=== PATIENT | female | born 1965 | race Two or more races ===

== ENCOUNTER 2020-06-16 10:37 | Outpatient (REF) | payer OTHER, SELFPAY ==
[2020-06-16 12:02] LABS: MANUAL DIFF FLAG NO
[2020-06-16 12:15] LABS: Basophils Percent Auto 0.5 % (0-2); Eosinophils Absolute Auto 0.1 X10*3/uL (0.0-0.4); Eosinophils Percent Auto 2.1 % (0-4); Hematocrit 39.6 % (37-47); Hemoglobin 12.7 g/dl (12.0-16.0); Imm Gran Abs Auto 0.01 X10*3/uL (0.00-0.03); Imm Gran Pct Auto 0.3 % (0.0-0.4); Lymphocytes Absolute Auto 1.5 X10*3/uL (1.2-4.9); Lymphocytes Percent Auto 38.2 % (20-40); Mean Corpuscular HGB Conc 32.1 g/dl (31.0-35.0); Mean Corpuscular Hemoglobin 28.2 pg (27.0-33.0); Mean Platelet Volume 9.4 fL (9.4-12.3); Monocytes Absolute Auto 0.4 X10*3/uL (0.1-1.2); Monocytes Percent Auto 10.4 % (2-11); Neutrophils Absolute Auto 1.9 X10*3/uL (2.0-8.3); Neutrophils Percent Auto 48.5 % (45-73); Platelet Count 232 X10*3/uL (160-400); Red Cell Distribution Width 14.1 % (11.0-16.0); White Blood Count 3.9 X10*3/uL (4.8-10.8)
[2020-06-16 12:29] LABS: Alanine Aminotransferase 17 U/L (0-31); Albumin Level 4.2 g/dL (3.5-5.0); Alkaline Phosphatase 92 U/L (39-117); Anion Gap 11 (12-20); Aspartate Amino Transferase 20 U/L (5-31); Bilirubin Total 0.6 mg/dL (0.0-1.0); Blood Urea Nitrogen 15 mg/dL (9-16); C Reactive Protein 0.45 mg/dL (< or = 0.50); Calcium 9.4 mg/dL (8.4-10.2); Carbon Dioxide 30 mmol/L (22-29); Chloride 107 mmol/L (96-108); Estimated Glomerular Filt Rate > 60; Glucose Random 102 mg/dL (60-115); Sodium 143 mmol/L (135-145); Total Protein 6.8 g/dL (6.5-8.0)
[2020-06-16 12:41] LABS: Glucose Urine UA NEG (NEG); Leukocyte Esterase Urine NEG (NEG); Nitrite Urine NEG (NEG); Specific Gravity - Urine >= 1.030 (1.005-1.025); Urine Blood NEG (NEG); Urine Ketones NEG (NEG); Urine Protein NEG (NEG-TRACE)
[2020-06-16 12:43] LABS: Appearance Urine CLEAR; Color Urine YELLOW
[2020-06-16 12:52] LABS: Bacteria Urine TRACE /LPF; Mucus Urine TRACE /LPF; RBC Urine 0-2 /HPF (0); Squamous Epithelial Cell Urine TRACE /LPF; WBC Urine 0-2 /HPF (0-4)
[2020-06-16 13:51] LABS: Erythrocyte Sedimentation Rate 6 MM/HR (0-20)
[2020-06-19 14:17] LABS: Anti DNA DS Antibody <1 IU/mL
[2020-06-19 15:02] LABS: Complement C3 118 mg/dL (83-193)
== END 2020-06-16 10:38 | disposition home or self-care (01) ==
LOC: HO.LAB 10:37
PROVIDERS: PCP Internal Medicine; Visit Provider Student in an Organized Health Care Education/Training Program
DX: M35.9 Systemic involvement of connective tissue, unspecified (principal); M79.7 Fibromyalgia; R20.0 Anesthesia of skin; Z79.899 Other long term (current) drug therapy
CPT/HCPCS: 36415; 80053; 81001; 85025; 85652; 86140; 86160; 86225; 99212

== ENCOUNTER 2020-07-03 12:27 | Outpatient (REF) | payer OTHER, SELFPAY ==
--- NOTE | ~2020-07-03 | MM_ITS ---
EXAMINATION: MM SCREENING DIGITAL BREAST TOMOSYNTHESIS, BILATERAL CLINICAL INFORMATION: Screening. Asymptomatic. The lifetime risk of breast cancer based on the Tyrer-Cuzick Model is 10%. COMPARISON: Mammography: 06/28/2019, 10/22/2017, 10/04/2016 TECHNIQUE: Digital breast tomosynthesis is performed in both the craniocaudal and mediolateral oblique views along with computer-aided detection (CAD). Synthesized 2D images are generated from the tomosynthesis. FINDINGS: The breasts are heterogeneously dense, which may obscure small masses (ACR BI-RADS breast composition Category c). There are no significant masses, abnormal calcifications, or other abnormalities. Parenchymal pattern is similar to prior studies. The axilla and skin contours are unremarkable. MM/MM tomosynthesis screening BI IMPRESSION: No mammographic evidence of malignancy. ASSESSMENT: BI-RADS 1: Negative RECOMMENDATION: Routine annual mammography screening. This patient's information was entered into a reminder system with a target due date for their next mammogram.
== END 2020-07-03 12:28 | disposition home or self-care (01) ==
LOC: HO.MAMMO 12:27
PROVIDERS: PCP Internal Medicine; Visit Provider Internal Medicine
DX: Z12.31 Encounter for screening mammogram for malignant neoplasm of breast (principal)
CPT/HCPCS: 77063; 77067

== ENCOUNTER 2021-01-03 14:53 | Outpatient (REF) | payer OTHER, SELFPAY ==
[2021-01-03 16:22] LABS: MANUAL DIFF FLAG NO
[2021-01-03 16:27] LABS: Basophils Percent Auto 0.4 % (0-2); Eosinophils Absolute Auto 0.1 X10*3/uL (0.0-0.4); Eosinophils Percent Auto 1.9 % (0-4); Hematocrit 37.8 % (37-47); Hemoglobin 12.1 g/dl (12.0-16.0); Imm Gran Abs Auto 0.01 X10*3/uL (0.00-0.03); Imm Gran Pct Auto 0.2 % (0.0-0.4); Lymphocytes Absolute Auto 1.6 X10*3/uL (1.2-4.9); Lymphocytes Percent Auto 34.8 % (20-40); Mean Corpuscular Volume 87.5 fL (80-98); Mean Platelet Volume 9.4 fL (9.4-12.3); Monocytes Absolute Auto 0.6 X10*3/uL (0.1-1.2); Neutrophils Absolute Auto 2.4 X10*3/uL (2.0-8.3); Neutrophils Percent Auto 50.7 % (45-73); Platelet Count 243 X10*3/uL (160-400); Red Blood Count 4.32 X10*6/uL (4.20-5.50); Red Cell Distribution Width 14.8 % (11.0-16.0); White Blood Count 4.7 X10*3/uL (4.8-10.8)
[2021-01-03 16:47] LABS: Alanine Aminotransferase 27 U/L (0-31); Albumin Level 4.2 g/dL (3.5-5.0); Alkaline Phosphatase 100 U/L (39-117); Anion Gap 12 (12-20); Aspartate Amino Transferase 22 U/L (5-31); Bilirubin Total 0.6 mg/dL (0.0-1.0); Blood Urea Nitrogen 13 mg/dL (9-16); C Reactive Protein 1.26 mg/dL (< or = 0.50); Calcium 9.3 mg/dL (8.4-10.2); Carbon Dioxide 28 mmol/L (22-29); Chloride 108 mmol/L (96-108); Estimated Glomerular Filt Rate > 60; Glucose Random 99 mg/dL (60-115); Potassium 4.5 mmol/L (3.3-5.1); Sodium 143 mmol/L (135-145); Total Protein 6.8 g/dL (6.5-8.0)
[2021-01-03 17:07] LABS: Erythrocyte Sedimentation Rate 5 MM/HR (0-20)
[2021-01-03 21:33] LABS: Glucose Urine UA NEG (NEG); Leukocyte Esterase Urine NEG (NEG); Nitrite Urine NEG (NEG); Specific Gravity - Urine >= 1.030 (1.005-1.025); Urine Blood NEG (NEG); Urine Ketones NEG (NEG); Urine Protein NEG (NEG-TRACE)
[2021-01-03 21:35] LABS: Appearance Urine CLEAR; Color Urine YELLOW
[2021-01-03 21:38] LABS: Bacteria Urine 1+ /LPF; Calcium Oxalate Crystals Urine 1+ /LPF; Mucus Urine 1+ /LPF; Squamous Epithelial Cell Urine 1+ /LPF
[2021-01-05 13:06] LABS: Complement C3 92 mg/dL (83-193)
[2021-01-06 13:06] LABS: Anti DNA DS Antibody <1 IU/mL
== END 2021-01-03 14:54 | disposition home or self-care (01) ==
LOC: HO.LAB 14:53
PROVIDERS: PCP Internal Medicine; Visit Provider Student in an Organized Health Care Education/Training Program
DX: M35.9 Systemic involvement of connective tissue, unspecified (principal); M79.7 Fibromyalgia; Z79.899 Other long term (current) drug therapy
CPT/HCPCS: 36415; 80053; 81001; 85025; 85652; 86140; 86160; 86225; 99212

== ENCOUNTER → 2021-01-19 15:49 | Outpatient (BNV) | payer OTHER, SELFPAY | PROVIDERS: Visit Provider Internal Medicine Medical Oncology | DX: D72.819 Decreased white blood cell count, unspecified (principal) | CPT/HCPCS: 99213 ==

== ENCOUNTER 2021-03-03 14:57 | Outpatient (REF) | payer OTHER, SELFPAY ==
--- NOTE | ~2021-03-03 | XR_ITS ---
EXAMINATION: XR CHEST CLINICAL INFORMATION: Chest pain COMPARISON: None TECHNIQUE: 2 views of the chest were obtained. FINDINGS: No significant abnormality is noted involving the heart, lungs, mediastinum, bony thorax or soft tissues. XR/XR chest 2V IMPRESSION: Unremarkable chest examination.
== END 2021-03-03 14:58 | disposition home or self-care (01) ==
LOC: HO.HMGCX 14:57
PROVIDERS: PCP Internal Medicine; Visit Provider Internal Medicine
DX: R07.9 Chest pain, unspecified (principal)
CPT/HCPCS: 71046

== ENCOUNTER 2021-07-12 13:05 | Outpatient (REF) | payer OTHER, SELFPAY ==
--- NOTE | ~2021-07-12 | MM_ITS ---
EXAMINATION: MM SCREENING DIGITAL BREAST TOMOSYNTHESIS, BILATERAL CLINICAL INFORMATION: Screening. Asymptomatic. The lifetime risk of breast cancer based on the Tyrer-Cuzick Model is 8%. COMPARISON: Mammography: 07/03/2020, 06/28/2019, 10/22/2017 TECHNIQUE: Digital breast tomosynthesis is performed in both the craniocaudal and mediolateral oblique views along with computer-aided detection (CAD). Synthesized 2D images are generated from the tomosynthesis. Additional left MLO view is provided. FINDINGS: The breasts are heterogeneously dense, which may obscure small masses (ACR BI-RADS breast composition Category c). There are no significant masses, abnormal calcifications, or other abnormalities. Parenchymal pattern is similar to prior studies. There is no developing density or architectural abnormality. The axilla and skin contours are unremarkable. No significant changes. MM/MM tomosynthesis screening BI IMPRESSION: No mammographic evidence of malignancy. ASSESSMENT: BI-RADS 1: Negative RECOMMENDATION: Routine annual mammography screening. This patient's information was entered into a reminder system with a target due date for their next mammogram.
== END 2021-07-12 13:06 | disposition home or self-care (01) ==
LOC: HO.MAMMO 13:05
PROVIDERS: PCP Internal Medicine; Visit Provider Internal Medicine
DX: Z12.31 Encounter for screening mammogram for malignant neoplasm of breast (principal)
CPT/HCPCS: 77063; 77067

== ENCOUNTER → 2021-09-05 13:09 | Outpatient (BNVA) | payer OTHER, SELFPAY | PROVIDERS: Visit Provider Obstetrics & Gynecology | DX: Z01.419 Encounter for gynecological examination (general) (routine) without abnormal findings (principal) ==

== ENCOUNTER 2021-10-02 10:56 | Outpatient (REF) | payer OTHER, SELFPAY ==
--- NOTE | ~2021-10-02 | US_ITS ---
EXAMINATION: US PELVIS CLINICAL INFORMATION: Hypertrophy of uterus COMPARISON: Previous pelvic ultrasound October 2017 TECHNIQUE: Ultrasound of the pelvis is performed using both transabdominal and transvaginal transducers along with Doppler. Transvaginal imaging is performed due to inadequate visualization transabdominally. FINDINGS: Uterus: The uterus is anteverted and measures 8.2 x 4.2 x 4.1 cm. The double wall endometrial thickness is 0.5 mm. Endometrial thickening in the fundus of the uterus is no longer appreciated. The uterus is smooth in contour and has normal myometrial echogenicity. No visible fibroid. There are nabothian cysts in the cervix. Adnexa: Both ovaries are visualized. There is a small amount of ascites. Right ovary measures 1.5 x 1.1 x 1.2 cm. Left ovary measures 1.5 x 1.1 x 1.4 cm. US/US pelvic and transvaginal IMPRESSION: Unremarkable exam.
== END 2021-10-02 10:57 | disposition home or self-care (01) ==
LOC: HO.US 10:56
PROVIDERS: Visit Provider Obstetrics & Gynecology
DX: N85.2 Hypertrophy of uterus (principal)
CPT/HCPCS: 76830; 76856

== ENCOUNTER 2021-10-04 11:32 | Outpatient (REF) | payer OTHER, SELFPAY ==
[2021-10-04 13:58] LABS: MANUAL DIFF FLAG NO
[2021-10-04 14:01] LABS: Basophils Percent Auto 0.6 % (0-2); Eosinophils Absolute Auto 0.1 X10*3/uL (0.0-0.4); Eosinophils Percent Auto 2.2 % (0-4); Hematocrit 41.5 % (37.0-47.0); Hemoglobin 13.1 g/dl (12.0-16.0); Imm Gran Abs Auto 0.01 X10*3/uL (0.00-0.03); Imm Gran Pct Auto 0.3 % (0.0-0.4); Lymphocytes Absolute Auto 1.4 X10*3/uL (1.2-4.9); Lymphocytes Percent Auto 38.5 % (20-40); Mean Corpuscular HGB Conc 31.6 g/dl (31.0-35.0); Mean Corpuscular Hemoglobin 28.3 pg (27.0-33.0); Mean Corpuscular Volume 89.6 fL (80.0-98.0); Mean Platelet Volume 9.6 fL (9.4-12.3); Monocytes Absolute Auto 0.4 X10*3/uL (0.1-1.2); Monocytes Percent Auto 10.7 % (2-11); Neutrophils Absolute Auto 1.7 x10*3/uL (2.0-8.3); Neutrophils Percent Auto 47.7 % (45-73); Platelet Count 256 X10*3/uL (160-400); Red Blood Count 4.63 X10*6/uL (4.20-5.50); Red Cell Distribution Width 14.4 % (11.0-16.0); White Blood Count 3.6 X10*3/uL (4.8-10.8)
[2021-10-04 14:22] LABS: Alanine Aminotransferase 28 U/L (0-31); Albumin Level 4.1 g/dL (3.5-5.0); Alkaline Phosphatase 71 U/L (39-117); Anion Gap 12 (12-20); Aspartate Amino Transferase 24 U/L (5-31); Bilirubin Total 0.7 mg/dL (0.0-1.0); Blood Urea Nitrogen 9 mg/dL (9-16); Calcium 9.6 mg/dL (8.4-10.2); Carbon Dioxide 28 mmol/L (22-29); Chloride 109 mmol/L (96-108); Cholesterol 244 mg/dL; Estimated Glomerular Filt Rate > 60; Glucose Fasting 97 mg/dL (60-99); HDL Cholesterol 79 mg/dL; LDL Cholesterol Calculated 147 mg/dl; Potassium 5.2 mmol/L (3.3-5.1); Sodium 144 mmol/L (135-145); Total Protein 6.9 g/dL (6.5-8.0); Triglycerides 93 mg/dL
[2021-10-04 14:35] LABS: TSH reflex Free T4 0.83 uIU/mL (0.32-4.0)
== END 2021-10-04 11:33 | disposition home or self-care (01) ==
LOC: HO.HMGCLDS 11:32
PROVIDERS: Visit Provider Internal Medicine
DX: Z00.01 Encounter for general adult medical examination with abnormal findings (principal); E66.09 Other obesity due to excess calories; F33.9 Major depressive disorder, recurrent, unspecified; M79.7 Fibromyalgia
CPT/HCPCS: 36415; 80053; 80061; 84443; 85025

== ENCOUNTER → 2021-10-10 08:57 | Outpatient (BNVA) | payer OTHER, SELFPAY | PROVIDERS: PCP Internal Medicine; Visit Provider Obstetrics & Gynecology | DX: N85.2 Hypertrophy of uterus (principal) | CPT/HCPCS: 99212 ==

== ENCOUNTER 2021-11-07 10:26 | Outpatient (REF) | payer OTHER, SELFPAY ==
[2021-11-07 10:42] LABS: MANUAL DIFF FLAG NO
[2021-11-07 11:00] LABS: Basophils Percent Auto 0.5 % (0-2); Eosinophils Absolute Auto 0.1 X10*3/uL (0.0-0.4); Eosinophils Percent Auto 1.9 % (0-4); Hematocrit 39.8 % (37.0-47.0); Hemoglobin 12.9 g/dl (12.0-16.0); Imm Gran Abs Auto 0.01 X10*3/uL (0.00-0.03); Imm Gran Pct Auto 0.2 % (0.0-0.4); Lymphocytes Absolute Auto 1.8 X10*3/uL (1.2-4.9); Lymphocytes Percent Auto 42.1 % (20-40); Mean Corpuscular HGB Conc 32.4 g/dl (31.0-35.0); Mean Corpuscular Hemoglobin 28.5 pg (27.0-33.0); Mean Corpuscular Volume 87.9 fL (80.0-98.0); Mean Platelet Volume 9.1 fL (9.4-12.3); Monocytes Absolute Auto 0.4 X10*3/uL (0.1-1.2); Monocytes Percent Auto 9.3 % (2-11); Neutrophils Absolute Auto 1.9 x10*3/uL (2.0-8.3); Platelet Count 240 X10*3/uL (160-400); Red Blood Count 4.53 X10*6/uL (4.20-5.50); Red Cell Distribution Width 14.1 % (11.0-16.0); White Blood Count 4.2 X10*3/uL (4.8-10.8)
[2021-11-07 12:06] LABS: Protein/Creatinine Ratio, Ur 0.05 (<0.2); Total Protein Urine Random 8 mg/dL (<12)
[2021-11-07 12:07] LABS: C Reactive Protein 0.54 mg/dL (< or = 0.50)
[2021-11-07 15:17] LABS: Erythrocyte Sedimentation Rate 7 MM/HR (0-20)
[2021-11-09 14:31] LABS: Anti Nuclear Antibody Screen NEGATIVE (NEGATIVE)
== END 2021-11-07 10:27 | disposition home or self-care (01) ==
LOC: HO.LAB 10:26
PROVIDERS: PCP Internal Medicine; Visit Provider Internal Medicine Rheumatology
DX: M35.9 Systemic involvement of connective tissue, unspecified (principal); R63.5 Abnormal weight gain; M79.7 Fibromyalgia; D72.819 Decreased white blood cell count, unspecified
CPT/HCPCS: 36415; 84156; 85025; 85652; 86038; 86039; 86140; 99212

== ENCOUNTER 2022-03-21 11:25 | Outpatient (REF) | payer OTHER, SELFPAY ==
[2022-03-21 13:35] LABS: MANUAL DIFF FLAG NO
[2022-03-21 13:48] LABS: Basophils Percent Auto 0.5 % (0-2); Eosinophils Absolute Auto 0.1 X10*3/uL (0.0-0.4); Eosinophils Percent Auto 1.9 % (0-4); Hemoglobin 12.7 g/dl (12.0-16.0); Imm Gran Abs Auto 0.01 X10*3/uL (0.00-0.03); Imm Gran Pct Auto 0.2 % (0.0-0.4); Lymphocytes Absolute Auto 1.5 X10*3/uL (1.2-4.9); Lymphocytes Percent Auto 36.6 % (20-40); Mean Corpuscular HGB Conc 31.8 g/dl (31.0-35.0); Mean Corpuscular Volume 88.3 fL (80.0-98.0); Mean Platelet Volume 9.6 fL (9.4-12.3); Monocytes Absolute Auto 0.5 X10*3/uL (0.1-1.2); Monocytes Percent Auto 10.7 % (2-11); Neutrophils Absolute Auto 2.1 x10*3/uL (2.0-8.3); Neutrophils Percent Auto 50.1 % (45-73); Platelet Count 275 X10*3/uL (160-400); Red Blood Count 4.53 X10*6/uL (4.20-5.50); Red Cell Distribution Width 14.2 % (11.0-16.0); White Blood Count 4.2 X10*3/uL (4.8-10.8)
[2022-03-21 14:14] LABS: Anion Gap 12 (12-20); Blood Urea Nitrogen 13 mg/dL (9-16); C Reactive Protein 0.73 mg/dL (< or = 0.50); Calcium 9.1 mg/dL (8.4-10.2); Carbon Dioxide 29 mmol/L (22-29); Chloride 107 mmol/L (96-108); Estimated Glomerular Filt Rate > 60; Glucose Random 87 mg/dL (60-115); Potassium 4.8 mmol/L (3.3-5.1); Sodium 143 mmol/L (135-145); Thyroid Stimulating Hormone 1.19 uIU/mL (0.32-4.0)
[2022-03-21 14:42] LABS: Erythrocyte Sedimentation Rate 11 MM/HR (0-20)
[2022-03-26 12:13] LABS: Anti Nuclear Antibody Pattern Nuclear, Speckled; Anti Nuclear Antibody Screen POSITIVE (NEGATIVE); Anti Nuclear Antibody Titer 1:40 titer
== END 2022-03-21 11:26 | disposition home or self-care (01) ==
LOC: HO.10HDL 11:25
PROVIDERS: Visit Provider Internal Medicine Rheumatology
DX: M35.9 Systemic involvement of connective tissue, unspecified (principal); M79.7 Fibromyalgia; D72.819 Decreased white blood cell count, unspecified; Z79.899 Other long term (current) drug therapy
CPT/HCPCS: 36415; 80048; 84443; 85025; 85652; 86038; 86039; 86140; 99212

== ENCOUNTER 2022-07-26 14:40 | Outpatient (REF) | payer OTHER, SELFPAY ==
--- NOTE | ~2022-07-26 | MM_ITS ---
EXAMINATION: MM SCREENING DIGITAL BREAST TOMOSYNTHESIS, BILATERAL CLINICAL INFORMATION: Screening. Asymptomatic. The lifetime risk of breast cancer based on the Tyrer-Cuzick Model is 9%. COMPARISON: Mammography: 07/12/2021, 07/03/2020, 06/28/2019 TECHNIQUE: Digital breast tomosynthesis is performed in both the craniocaudal and mediolateral oblique views along with computer-aided detection (CAD). Synthesized 2D images are generated from the tomosynthesis. FINDINGS: The breasts are heterogeneously dense, which may obscure small masses (ACR BI-RADS breast composition Category c). There are no significant masses, abnormal calcifications, or other abnormalities. No architectural abnormality or developing density or significant change from prior studies. The axilla are unremarkable. MM/MM tomosynthesis screening BI IMPRESSION: No mammographic evidence of malignancy. ASSESSMENT: BI-RADS 1: Negative RECOMMENDATION: Routine annual mammography screening. This patient's information was entered into a reminder system with a target due date for their next mammogram.
== END 2022-07-26 14:41 | disposition home or self-care (01) ==
LOC: HO.MAMMO 14:40
PROVIDERS: PCP Internal Medicine; Visit Provider Internal Medicine
DX: Z12.31 Encounter for screening mammogram for malignant neoplasm of breast (principal)
CPT/HCPCS: 77063; 77067

== ENCOUNTER 2022-08-19 13:58 | Outpatient (REF) | payer OTHER, SELFPAY ==
--- NOTE | ~2022-08-19 | XR_ITS ---
EXAMINATION: XR SHOULDER, RIGHT CLINICAL INFORMATION: Shoulder pain COMPARISON: None available. TECHNIQUE: AP external rotation, Grashey, scapular Y, and axillary views of the right shoulder. FINDINGS: The bones and soft tissues are normal. No fracture. Glenohumeral and acromioclavicular alignment is anatomic with normal joint space. No abnormal soft tissue calcifications. XR/XR shoulder RT min 2V IMPRESSION: Normal right shoulder.
[2022-08-19 14:54] LABS: MANUAL DIFF FLAG NO
[2022-08-19 15:30] LABS: Basophils Percent Auto 0.4 % (0-2); Eosinophils Absolute Auto 0.1 X10*3/uL (0.0-0.4); Eosinophils Percent Auto 1.3 % (0-4); Hematocrit 39.5 % (37.0-47.0); Hemoglobin 12.9 g/dl (12.0-16.0); Imm Gran Abs Auto 0.01 X10*3/uL (0.00-0.03); Imm Gran Pct Auto 0.2 % (0.0-0.4); Lymphocytes Absolute Auto 2.2 X10*3/uL (1.2-4.9); Lymphocytes Percent Auto 41.1 % (20-40); Mean Corpuscular HGB Conc 32.7 g/dl (31.0-35.0); Mean Corpuscular Hemoglobin 28.4 pg (27.0-33.0); Mean Corpuscular Volume 86.8 fL (80.0-98.0); Mean Platelet Volume 9.7 fL (9.4-12.3); Monocytes Absolute Auto 0.5 X10*3/uL (0.1-1.2); Monocytes Percent Auto 9.7 % (2-11); Neutrophils Absolute Auto 2.5 x10*3/uL (2.0-8.3); Neutrophils Percent Auto 47.3 % (45-73); Platelet Count 269 X10*3/uL (160-400); Red Blood Count 4.55 X10*6/uL (4.20-5.50); Red Cell Distribution Width 14.6 % (11.0-16.0); White Blood Count 5.3 X10*3/uL (4.8-10.8)
[2022-08-19 15:56] LABS: C Reactive Protein 1.07 mg/dL (< or = 0.50)
[2022-08-19 16:12] LABS: Erythrocyte Sedimentation Rate 8 MM/HR (0-20)
[2022-08-21 22:14] LABS: Anti DNA DS Antibody <1 IU/mL; SM/Ribonucleoprotein Ab <1.0 NEG AI (<1.0 NEG); Smith Protein <1.0 NEG AI (<1.0 NEG)
== END 2022-08-19 13:59 | disposition home or self-care (01) ==
LOC: HO.XRAY 13:58
PROVIDERS: PCP Internal Medicine; Visit Provider Internal Medicine Rheumatology
DX: M35.9 Systemic involvement of connective tissue, unspecified (principal); D72.819 Decreased white blood cell count, unspecified; M79.7 Fibromyalgia; M25.511 Pain in right shoulder; M75.81 Other shoulder lesions, right shoulder
CPT/HCPCS: 36415; 73030; 85025; 85652; 86140; 86225; 86235; 99212

== ENCOUNTER 2022-09-10 09:11 | Outpatient (REF) | payer OTHER, SELFPAY ==
[2022-09-12 07:24] LABS: HPV mRNA E6/E7 rflx Not Detected (Not Detected)
== END 2022-09-10 09:12 | disposition home or self-care (01) ==
LOC: HO.LNP 09:11
PROVIDERS: PCP Internal Medicine; Visit Provider Obstetrics & Gynecology
DX: Z01.419 Encounter for gynecological examination (general) (routine) without abnormal findings (principal); Z11.51 Encounter for screening for human papillomavirus (HPV); N85.2 Hypertrophy of uterus
CPT/HCPCS: 87624; 88142

== ENCOUNTER 2022-11-14 12:00 | Outpatient (RCR) | payer OTHER, SELFPAY ==
--- NOTE | 2022-09-16 17:20 | MHC.PT.EP ---
[facility] Office [place] Office [place] Office [address] Aaron Khalil [address] [phone] F: [phone] F: [phone] F: [phone] F: [phone] Physical Therapy Plan of Care Date of Evaluation: Date of Surgery: Diagnosis: RIGHT shoulder pain ( MD Dx) RIGHT subacromial impingement, questionable supraspinatus tear, adhesive capsulitis. (PT Dx) Assessment: Patient is a 57 y.o. female who is referred to PT by Dr. Bill Couch MD with Dx of RIGHT shoulder pain. PT diagnosis is RIGHT subacromial impingement, questionable supraspinatus tear, adhesive capsulitis.Patient impairments include pain, poor posture, limited ROM, weakness. Patient current functional limitations are reaching, lifting overhead, showering, washing/styling hair, pulling up pants, lifting children at work, reaching behind back. Patient will benefit from skilled PT to address aforementioned impairments and functional limitations to meet established goals. Prognosis is fair as she has developed adhesive capsulitis and I question RTC tear due to presentation. Frequency and Duration: The patient will be seen 1-2x/week for 4 weeks Short Term Goals: 2 weeks Patient demonstrates consistency and independence with HEP to self manage symptoms. Patient presents with increased R shoulder ER 60 degrees to be able to reach behind back for ADLs. Roller Operator Goals: 4 weeks Patient presents with increased R shoulder AROM flexion 140 degrees to be able to do her hair. Patient presents with increased R shoulder flexino 3+/5 to be able to put on pants. Treatment Plan: Modalities to reduce pain, spasms and effusion. Manual therapy to restore motion and function. Therapeutic exercise to improve strength and flexibility. Neuromuscular re-education for posture and balance. Therapeutic activities to return to functional activities of daily living. Electronically signed by: Arnold Holguin, PT, DPT Please sign and return to therapist. Thank you for your referral.
--- NOTE | 2022-11-14 14:33 | MHC.PT.DC ---
[facility] [place] Office [place] Office [place] Office [address] Aaron Khalil [address] [phone] F: [phone] F: [phone] F: [phone] F: [phone] Physical Therapy Discharge Report Diagnosis: RIGHT shoulder pain ( MD Dx) RIGHT subacromial impingement, questionable supraspinatus tear, adhesive capsulitis. (PT Dx) Date of Surgery: Date of Evaluation: 09/16/22 Date of Discharge: 11/14/22 Treatments to Date: 8 Cancellations to Date: No Shows to Date: Discharge Status: Achieved Goals Improved Function Independent with HEP Discharge Summary: Violet shows improvement in all areas with reduction in familiar pain, improved AROM and increased strength as well as improves self reported outcome measure with SPADI. However, she is still experiencing impingement symptoms with overhead reaching and has pain and weakness into abduction, which is questionable for RTC tear vs impingement. We discuss speaking with her MD at next FUP regarding sxs and possible imaging if needed. Electronically signed by: Arnold Holguin, PT, DPT Please sign and return to therapist. Thank you for your referral.
--- NOTE | 2022-11-14 14:35 | MHC.PT.DC ---
[facility] [place] Office [place] Office [place] Office [address] Aaron Khalil [address] [phone] F: [phone] F: [phone] F: [phone] F: [phone] Physical Therapy Discharge Report Diagnosis: RIGHT shoulder pain ( MD Dx) RIGHT subacromial impingement, questionable supraspinatus tear, adhesive capsulitis. (PT Dx) Date of Surgery: Date of Evaluation: 09/16/22 Date of Discharge: 11/14/22 Treatments to Date: 8 Cancellations to Date: No Shows to Date: Discharge Status: Achieved Goals Improved Function Independent with HEP Discharge Summary: Violet shows improvement in all areas with reduction in familiar pain, improved AROM and increased strength as well as improves self reported outcome measure with SPADI. However, she is still experiencing impingement symptoms with overhead reaching and has pain and weakness into abduction, which is questionable for RTC tear vs impingement. We discuss speaking with her MD at next FUP regarding sxs and possible imaging if needed. Electronically signed by: Arnold Holguin, PT, DPT Please sign and return to therapist. Thank you for your referral.
== END 2022-11-14 14:34 | disposition home or self-care (01) ==
LOC: HO.PT 12:00
PROVIDERS: PCP Internal Medicine; Visit Provider Internal Medicine Rheumatology
DX: M75.81 Other shoulder lesions, right shoulder (principal)
CPT/HCPCS: 97110; 97140; 97161

== ENCOUNTER 2022-11-26 08:41 | Outpatient (AMB) | payer OTHER, SELFPAY ==
[2022-11-26 08:49] VITALS: BP 110/72; PULSE 70; O2SAT 97; BMI 33.3
--- NOTE | 2022-11-26 08:49 | A.OFFPC_ITS ---
Vital Signs 11/26/22 08:49 Height 5 ft 4 in Weight 194 lb 4 oz BMI 33.3 BP 110/72 Blood Pressure Location Rt brachial Position Sitting Pulse 70 Pulse Source Pulse Oximeter Pulse Oximetry (%) 97 Oxygen Delivery Method Room Air Intake Visit Reasons: Annual PE Allergies aspirin [Aspirin] Allergy (Mild, Verified 11/26/22 08:49) GI UPSET, upset stomach, stomach upset Medication List - Last Reconciled 11/26/22 by La Clemens MD cyclobenzaprine 5 mg PO BEDTIME PRN fluoxetine 40 mg PO DAILY gabapentin 800 mg PO BEDTIME hydroxychloroquine (Plaquenil) 200 mg PO DAILY hydroxyzine HCl 25 mg PO TID PRN lamotrigine 200 mg PO DAILY mirtazapine 30 mg PO BEDTIME quetiapine 200 mg PO BEDTIME Tobacco use date assessed: 11/26/22 Dental Screening Dental Screen Date: 11/26/22 Did you have a dental visit in the last 12 months?: Yes Did you have a dental problem in the last 6 months where you did not have access to dental care?: No Was dental information given to patient?: No HPI Annual PE HPI Details Patient is 57-year-old female came in today for physical examination All her medications are from different providers for fibromyalgia and depression However she is complaining of dyspepsia for the past 2-3 weeks which is responding to Tums. Patient says that it is mostly at night. I have sent pantoprazole for the patient she is to take 1 tablet on empty stomach before bedtime with sip of water. Mammogram is up-to-date Colonoscopy through Dr. Waldron patient says that she will have appointment in January of this year She declined a breast exam today, patient sees Dr. Soler for OBGYN care Lab order placed to be done fasting. We will set up a telemedicine visit to follow-up on dyspepsia after starting PPI Physical exam 1 year [facility] Medical History Depression Fibromyalgia IBS (irritable bowel syndrome) Migraine Undifferentiated connective tissue disease Surgical History History of bilateral ligation of fallopian tubes Family History Mother HTN (hypertension) Brother Diabetes Father Heart attack Other Mental health disorder Social History Household Members: None Housing: House Are you a primary healthcare liaison to a significant other at home: No Do you presently have visiting nurse or other home services: No Alcohol intake: current Alcohol intake frequency: a few times a month Alcohol type: wine Patient Tobacco Use Status: Never used Tobacco e-Cigarette/Vaping Use: Never Used Second Hand Smoke Exposure: No service: No Current occupational status: unemployed Cognitive needs: No Hearing needs: No Vision needs: Yes Female Reproductive History Menstrual Age of Menarche: 13 Questionnaire Thrive Questionnaire Date Thrive assessed: 10/03/21 AUDIT C Alcohol Use Questionnaire (AUDIT-C) 1. How often do you have a drink containing alcohol?: Never 3. How often do you have six or more drinks on one occasion?: Never Total Score: 0 Score Reviewed/Action Taken: Yes SPENSER-7 AMB Questionnaire SPENSER-7 Date SPENSER - 7 assessed: 10/03/21 Source: Developed by Drs. Evgeny Infante, Celina Soto, Wing Izaguirre and colleagues, with an educational deniz from [employer]. Review of Systems Const Denies chills, Denies fever(s) and Denies headache(s) Eyes Denies blurry vision ENT Denies headache(s), Denies nasal discharge, Denies nasal obstruction, Denies odynophagia and Denies sinus pain Card Denies chest pain at rest and Denies chest pain with activity Resp Denies cough and Denies hemoptysis GI Denies diarrhea, Denies odynophagia, Denies vomiting and Denies hematemesis Reports as per HPI Musc Denies abnormal gait Skin/Breast Reports as per HPI Neuro Denies Neuro-related abnormal movements, Denies Abnormal speech present, Denies abnormal gait, Denies headache(s) and Denies Sensory deficit (Neuro) Psych Denies mood swings and Denies paranoia Endo Reports as per HPI Maxwell/Lymph Reports as per HPI Aller/Immun Reports as per HPI Physical exam (Primary Care) Vital Signs: Last Vital Signs Pulse 70 11/26/22 08:49 BP 110/72 11/26/22 08:49 Pulse Ox 97 11/26/22 08:49 Oxygen Delivery Method Room Air 11/26/22 08:49 BMI result Body Mass Index 33.3 Tobacco/Smoking Status: Tobacco use Status Tobacco use date assessed 11/26/22 11/26/22 08:50 Patient Tobacco Use Status Never used Tobacco 11/26/22 08:50 e-Cigarette/Vaping Use Never Used 11/26/22 08:50 Thrive Assessment: Date of Thrive Assessment Date Thrive assessed 10/03/21 11/26/22 08:50 Const General: cooperative, comfortable and no acute distress Orientation/consciousness: patient oriented x3 HENMT Head: Yes normocephalic and Yes atraumatic Eyes General: appearance normal, both eyes and all related structures Pupils: Equal, round and reactive pupils present EOM: EOMs intact bilaterally Neck Neck: Yes supple and No lymphadenopathy Thyroid: Thyroid normal Lymphatic: no lymphadenopathy noted Resp Effort & Inspection: normal respiratory effort and able to speak in complete sentences Auscultation: clear to auscultation bilaterally Cardio Heart sounds: S1 normal heart sound present and S2 normal heart sound present GI Palpation (GI): Soft to palpation and nontender Auscultation: normal bowel sounds General: Yes no CVA tenderness Back/Spine/Pelvis Back: no CVA tenderness Skin General skin exam: elasticity normal and turgor normal Neuro General: patient oriented x3 and gait normal Cranial nerves: Yes Equal, round and reactive pupils present Speech: No Abnormal speech present Sensory Exam: No Sensory deficit (Neuro) Coordination: tandem gait normal and Romberg test negative Extrem Other: Right shoulder with limited range of motion patient has gone through physical therapy and will discuss it further with the Rheumatology General: No edema Assessment and Plan Assessment & Plan (1) Encounter for general adult medical examination with abnormal findings: Code(s): Z00.01 - Encounter for general adult medical examination with abnormal findings (2) Fibromyalgia: Code(s): M79.7 - Fibromyalgia (3) Obesity due to excess calories: Code(s): E66.09 - Other obesity due to excess calories (4) Major depression, recurrent: Code(s): F33.9 - Major depressive disorder, recurrent, unspecified (5) Dyspepsia: Code(s): R10.13 - Epigastric pain Plan Patient is 57-year-old female came in today for physical examination All her medications are from different providers for fibromyalgia and depression However she is complaining of dyspepsia for the past 2-3 weeks which is responding to Tums. Patient says that it is mostly at night. I have sent pantoprazole for the patient she is to take 1 tablet on empty stomach before bedtime with sip of water. Mammogram is up-to-date Colonoscopy through Dr. Waldron patient says that she will have appointment in January of this year She declined a breast exam today, patient sees Dr. Soler for OBGY care Lab order placed to be done fasting. We will set up a telemedicine visit to follow-up on dyspepsia after starting PPI Physical exam 1 year Orders: Orders Comprehensive Powell. Panel Fast Today Z00.01 - Encounter for general adult medical examination with abnormal findings Lipid Panel Today Z00.01 - Encounter for general adult medical examination with abnormal findings TSH reflex Free T4 Today Z00.01 - Encounter for general adult medical examination with abnormal findings Complete Blood Count Auto Diff Today E66.09 - Other obesity due to excess calories, F33.9 - Major depressive disorder, recurrent, unspecified, M79.7 - Fibromyalgia, R10.13 - Epigastric pain, Z00.01 - Encounter for general adult medical examination with abnormal findings Medications: New pantoprazole 20 mg PO DAILY 30 tabs 2RF Coding Level of Care Code Est Pt Prev Care 40-64y(88382) Diagnoses Encounter for general adult medical examination with abnormal findings Z00.01 Fibromyalgia M79.7 Obesity due to excess calories E66.09 Major depression, recurrent F33.9 Dyspepsia R10.13
== END 2022-11-26 10:32 | disposition home or self-care (01) ==
PROVIDERS: Visit Provider Internal Medicine
DX: Z00.01 Encounter for general adult medical examination with abnormal findings (principal); E66.09 Other obesity due to excess calories; F33.9 Major depressive disorder, recurrent, unspecified; Z68.33 Body mass index [BMI] 33.0-33.9, adult; M79.7 Fibromyalgia; R10.13 Epigastric pain
CPT/HCPCS: 99396

== ENCOUNTER 2022-11-28 10:26 | Outpatient (REF) | payer OTHER, SELFPAY ==
[2022-11-28 13:25] LABS: MANUAL DIFF FLAG NO
[2022-11-28 13:51] LABS: Basophils Percent Auto 0.8 % (0-2); Eosinophils Absolute Auto 0.1 X10*3/uL (0.0-0.4); Eosinophils Percent Auto 2.3 % (0-4); Hematocrit 42.1 % (37.0-47.0); Hemoglobin 13.4 g/dl (12.0-16.0); Lymphocytes Absolute Auto 1.8 X10*3/uL (1.2-4.9); Lymphocytes Percent Auto 44.9 % (20-40); Mean Corpuscular HGB Conc 31.8 g/dl (31.0-35.0); Mean Corpuscular Hemoglobin 28.2 pg (27.0-33.0); Mean Corpuscular Volume 88.4 fL (80.0-98.0); Mean Platelet Volume 9.5 fL (9.4-12.3); Monocytes Absolute Auto 0.3 X10*3/uL (0.1-1.2); Monocytes Percent Auto 8.2 % (2-11); Neutrophils Absolute Auto 1.7 x10*3/uL (2.0-8.3); Neutrophils Percent Auto 43.8 % (45-73); Platelet Count 269 X10*3/uL (160-400); Red Blood Count 4.76 X10*6/uL (4.20-5.50); Red Cell Distribution Width 13.8 % (11.0-16.0); White Blood Count 3.9 X10*3/uL (4.8-10.8)
[2022-11-28 14:56] LABS: Alanine Aminotransferase 21 U/L (0-31); Alkaline Phosphatase 84 U/L (39-117); Anion Gap 13 (12-20); Aspartate Amino Transferase 19 U/L (5-31); Bilirubin Total 0.5 mg/dL (0.0-1.0); Blood Urea Nitrogen 11 mg/dL (9-16); Calcium 9.8 mg/dL (8.4-10.2); Carbon Dioxide 26 mmol/L (22-29); Chloride 108 mmol/L (96-108); Cholesterol 229 mg/dL; Estimated Glomerular Filt Rate > 60; Glucose Fasting 97 mg/dL (60-99); HDL Cholesterol 66 mg/dL; LDL Cholesterol Calculated 147 mg/dl; Potassium 4.4 mmol/L (3.3-5.1); Sodium 143 mmol/L (135-145); Triglycerides 84 mg/dL
[2022-11-28 14:58] LABS: TSH reflex Free T4 1.43 uIU/mL (0.32-4.0)
== END 2022-11-28 10:27 | disposition home or self-care (01) ==
LOC: HO.HMGCLDS 10:26
PROVIDERS: PCP Internal Medicine; Visit Provider Internal Medicine
DX: Z00.01 Encounter for general adult medical examination with abnormal findings (principal); R10.13 Epigastric pain; E66.09 Other obesity due to excess calories; F33.9 Major depressive disorder, recurrent, unspecified; M79.7 Fibromyalgia
CPT/HCPCS: 36415; 80053; 80061; 84443; 85025

== ENCOUNTER 2022-12-16 10:00 | Outpatient (AMB) | payer OTHER, SELFPAY ==
[2022-12-16 10:07] VITALS: BP 112/66; PULSE 67; TEMP 36.1; O2SAT 96; BMI 33.4
--- NOTE | 2022-12-16 10:07 | A.OFFVIS_ITS ---
Intake Vital Signs 12/16/22 10:07 Height 5 ft 4 in Weight 194 lb 7.163 oz BMI 33.4 BP 112/66 Blood Pressure Location Rt brachial Pulse 67 Pulse Source Pulse Oximeter Temp 97.0 F Temp Source Skin Pulse Oximetry (%) 96 Intake Visit Reasons: f/u for pain Intake Note: * Pt seen today for follow up. * C/o pain right shoulder/arm. 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 Accompanied by: Self / Same As Patient Allergies aspirin [Aspirin] Allergy (Mild, Verified 12/16/22 10:09) GI UPSET, upset stomach, stomach upset Medication List - Last Reconciled 12/16/22 by Bill Couch MD cyclobenzaprine 5 mg PO BEDTIME PRN fluoxetine 20 mg PO DAILY gabapentin 800 mg PO BEDTIME hydroxychloroquine (Plaquenil) 200 mg PO DAILY hydroxyzine pamoate 25 mg PO TID PRN lamotrigine 100 mg PO DAILY linaclotide (Linzess) 72 mcg PO QAM mirtazapine 30 mg PO BEDTIME pantoprazole 20 mg PO DAILY quetiapine 200 mg PO BEDTIME HPI HPI Comments History of Present Illness Details The patient presents with right shoulder pain. She says she overused that shoulder shoveling some snow back in June. She also is on hydroxychloroquine 200 mg daily for what has been labeled as undifferentiated connective tissue disease. She has been in some physical therapy for the shoul minda but that has only helped slightly. She says upper arm and anterior shoulder pain occurs with lifting the arm up to the horizontal or overhead and at night when she lies on the shoulder. There has been no redness or swelling. Her other more overall pains continue from fibromyalgia. She seems comfortable otherwise outside the shoulder pain. She takes some gabapentin that she takes 800 mg at night. She is also on medicines for her psychiatric disorder. [facility] Medical History Depression Fibromyalgia IBS (irritable bowel syndrome) Migraine Undifferentiated connective tissue disease Surgical History History of bilateral ligation of fallopian tubes Family History Mother HTN (hypertension) Brother Diabetes Father Heart attack Other Mental health disorder Social History Household Members: None Housing: House Are you a primary resident care associate to a significant other at home: No Do you presently have visiting nurse or other home services: No Alcohol intake: current Alcohol intake frequency: a few times a month Alcohol type: wine Patient Tobacco Use Status: Never used Tobacco e-Cigarette/Vaping Use: Never Used Second Hand Smoke Exposure: No service: No Current occupational status: unemployed Cognitive needs: No Hearing needs: No Vision needs: Yes Female Reproductive History Menstrual Age of Menarche: 13 Review of Systems Const Details: Negative for appetite change, weight change, fever, chills, malaise and fatigue Eyes Details: Negative for vision change, dry eyes,headaches and dizziness ENT Details: Negative for hearing change, tinnitus, oral ulcer, nose bleeds and oral dryness. Card Details: Negative chest pain, edema and syncope Resp Details: Negative for SOB, cough and wheezing GI Details: Negative indigestion/heartburn, nausea, abdominal pain, bowel changes, diarrhea, constipation and bloody stool. Skin/Breast Details: Raynaud's systems less active in the summertime. Negative for itching, rash, hives, sun sensitivity, and skin cancer Psych Details: Negative for anxiety, depression and stress Endo Details: Negative for polyuria and polydypsia Maxwell/Lymph Details: Negative for excessive bruising or bleeding. Physical Exam Vital Signs: Last Vital Signs Temp 97.0 F 12/16/22 10:07 Pulse 67 12/16/22 10:07 BP 112/66 12/16/22 10:07 Pulse Ox 96 12/16/22 10:07 BMI result Body Mass Index 33.4 APPEARANCE: Patient in no acute distress EARS:? External ear normal, canal clear and tympanic membrane normal. NOSE/SINUS:? Airflow through both nares, no nasal discharge, no bleeding THROAT:? Oral mucosa moist, no ulcerations NECK:? No thyromegaly or masses, no adenopathy, trachea midline. HEART:? Regulrar rhythm, S1-S2 heard, no murmurs, rubs or gallops. LUNG:? Clear to percussion and auscultation ABD:? Normal bowel sounds, no organomegaly, masses or tenderness. EXTREMITIES:? No edema, no calf tenderness, normal peripheral pulses. SKIN:? No inflammatory or neoplastic lesions.? Normal color and turgor JOINT EXAM: Cervical Spine:.? Mild pain with lateral flexion at 15 degrees with extremes of normal rotation.? Some cervical muscle tenderness. Thoracic Spine:.? No scoliosis.? No tenderness on palpation. Lumbar Spine:.? Alignment normal.? Full range of motion with mild pain at the extremes.? Slight paraspinal muscle tenderness. Chest Wall:.? No tenderness, swelling, increased warmth or erythema. Hands:.? Normal pain-free range of motion with mild tenderness across the PIP joints but no the swelling, increased warmth or erythema. Able to make a full fist and has a good cell maker strength. Wrists:.? Normal pain-free range of motion without tenderness, swelling, increased warmth or erythema. Elbows:. Normal pain-free range of motion without tenderness, swelling, increased warmth or erythema. Shoulders:.? Right:? Mild to moderate pain with abduction at 110 degrees or with attempts at more than 15 degrees of internal or external rotation.? Pain is worse as we try to push the shoulder passively to 180 degrees of abduction.? There is similar pain with anterior flexion at 90 degrees.? There is pcji-oh-pefrrybn anterior, subacromial and posterior tenderness.? There is no swelling, adenopathy or weakness.? Left:? Full range of motion with slight tenderness across the trapezial area.? There is minimal anterior and posterior tenderness without adenopathy, weakness, swelling, increased warmth or erythema. Hips:.? Full range of motion without pain. Hip bursa:? No tenderness. Knees:.?? Normal pain-free range of motion with mild patellofemoral crepitus.? There is mild medial compartment tenderness without effusion, soft tissue swelling, increased warmth or erythema.? There is no effusion or crepitation Ankles:.? Normal pain-free range of motion without tenderness, swelling, increased warmth or erythema. Feet:.? Normal pain-free range of motion without tenderness, swelling, increased warmth or erythema. Tender points: mild tenderness to digital palpation at the occiput, trapezius, second rib, lateral epicondyle, knees, greater trochanter and gluteal area bilaterally. Office Procedures Joint Injection/Drain Joint Injection/Drain Primary Site: right shoulder Injected: 40 mg of, Kenalog, with 1 mL of and 1% plain lidocaine Coding 78553 - Large joint (The right shoulder was prepped ChloraPrep and alcohol. The subacromial space was injected with 40 mg of triamcinolone and 1 cc of lidocaine. Patient tolerated the procedure well no apparent immediate side effects.) Procedure code (CPT) selection complete Results Reviewed Results Reviewed: [address] [address] XRay Report Signed Patient: Violet Adhikari MR#: [id number] : 1965 Acct:[id number] Age/Sex: 57 / F ADM Date: 08/19/22 Loc: [facility] Attending Dr: Bill Couch MD Ordering Physician: Bill Couch MD Date of Service: 08/19/22 Procedure(s): XR shoulder RT min 2V Accession Number(s): [id number] cc: Bill Couch MD~ EXAMINATION: XR SHOULDER, RIGHT CLINICAL INFORMATION: Shoulder pain? COMPARISON: None available.? TECHNIQUE: AP external rotation, Grashey, scapular Y, and axillary views of the right shoulder. FINDINGS: The bones and soft tissues are normal. No fracture. Glenohumeral and acromioclavicular alignment is anatomic with normal joint space. No abnormal soft tissue calcifications.? XR/XR shoulder RT min 2V IMPRESSION: Normal right shoulder. Dictated By: Juliet Chairez MD Assessment & Plan Assessment & Plan (1) Fibromyalgia: Code(s): M79.7 - Fibromyalgia (2) Undifferentiated connective tissue disease: Comment: 2019: ESTER 1:80, speckled. WBC low. C3 and C4 low. Anti DNA, anti BOGDAN, Sjogren's antibodies all negative. The hydroxychloroquine since 2019. Eye exam ok 07/04 Code(s): M35.9 - Systemic involvement of connective tissue, unspecified (3) Right rotator cuff tendonitis: Code(s): M75.81 - Other shoulder lesions, right shoulder Plan The patient still has rotator cuff symptoms in the right shoulder. Given the overuse phenomena there could be some element of a tear here but impingement and tendinitis is also a possibility. We discussed orthopedic referral or trying a local injection today. We reviewed potential side effects of corticosteroid injections and she wants to try a corticosteroid injection. The right shoulder was prepped ChloraPrep and alcohol. The subacromial space was injected with 40 mg of triamcinolone and 1 cc of lidocaine. Patient tolerated the procedure well with no apparent immediate side effects. She will rest it for a few days and then begin some gentle, dftbj-tn-xkbygc exercises. I told her that if it was not improving in 2 weeks she should call us and we would set up an orthopedic referral. She will stay on the gabapentin at night for the fibromya lgia. I still do not see much activity to suggest an active autoimmune rheumatic disease. If such relative inactivity continues we may consider stopping the hydroxychloroquine in the future. A follow-up is recommended for 6 months. . Orders: Orders AMB Joint Injection/Aspiration Today M75.81 - Other shoulder lesions, right shoulder Medications: Refilled gabapentin 800 mg PO BEDTIME 90 tabs 1RF M79.7 - Fibromyalgia Coding Level of Care Code Est Pt Level 3 (90344) Diagnoses Fibromyalgia M79.7 Undifferentiated connective tissue disease M35.9 Right rotator cuff tendonitis M75.81 CPT Codes Coding - 07661 Large joint: 00003 - Large joint ([id number])
== END 2022-12-16 11:01 | disposition home or self-care (01) ==
PROVIDERS: PCP Internal Medicine; Visit Provider Internal Medicine Rheumatology
DX: M79.7 Fibromyalgia (principal); M35.89 Other specified systemic involvement of connective tissue; M75.81 Other shoulder lesions, right shoulder
CPT/HCPCS: 20610; 99213

== ENCOUNTER → 2022-12-16 10:00 | Outpatient (BNVA) | payer OTHER, SELFPAY | PROVIDERS: PCP Internal Medicine; Visit Provider Internal Medicine Rheumatology | DX: M75.81 Other shoulder lesions, right shoulder (principal); M79.7 Fibromyalgia; M35.89 Other specified systemic involvement of connective tissue | CPT/HCPCS: 20610; 99212 ==

== ENCOUNTER 2023-02-14 12:40 | Outpatient (AMB) | payer OTHER, SELFPAY ==
--- NOTE | 2023-02-14 12:57 | MHC.OFFWIV ---
Intake Vital Signs 02/14/23 13:00 Height 5 ft 4 in Weight 192 lb BMI 33.0 BP 130/80 Blood Pressure Location Lt brachial Position Sitting Pulse 76 Pulse Source Pulse Oximeter Temp 99.4 F Temp Source Oral Pulse Oximetry (%) 96 Oxygen Delivery Method Room Air Intake Visit Reasons: EP, cough,congestion,wheezing (masked) Intake Note: Triaged patient in waiting room due to complaints of SOB and wheezing. Pt reports congestion and cough since Friday, daughter with patient explaining that she can hear the patient wheezing . No acute distress, skin warm & dry, pt reports fever but taking Ibuprofen to control. No history of asthma. Patient Tobacco Use Status: Never used Tobacco Allergies aspirin [Aspirin] Allergy (Mild, Verified 02/14/23 13:03) GI UPSET, upset stomach, stomach upset Do you need a note to return to daycare/school/sports/work: Yes HPI HPI Comments History of Present Illness Details This is a 57-year-old female who presents to the office today for sick visit. Patient complaining of cough with yellow sputum and chest congestion x2 days in the setting of viral URI symptoms x5 days. Patient states she developed nasal congestion, rhinorrhea, headache, sore throat, and bilateral otalgia approximately 5 days ago. She went to the emergency room and she was diagnosed with a viral URI recommended symptomatic management. Patient then started to developed chest congestion, wheezing at nighttime, and a cough with yellowish sputum about 2 days ago. She reports low-grade fevers with a T-max of 101? F. She denies any chest pain or shortness of breath but does report some wheezing at nighttime. She denies any abdominal pain or nausea/vomiting / diarrhea. She denies a history of asthma or COPD. [facility] Medical History Depression Fibromyalgia IBS (irritable bowel syndrome) Migraine Undifferentiated connective tissue disease Surgical History History of bilateral ligation of fallopian tubes Family History Mother HTN (hypertension) Brother Diabetes Father Heart attack Other Mental health disorder Social History Household Members: None Housing: House Are you a primary rn progressive care to a significant other at home: No Do you presently have visiting nurse or other home services: No Alcohol intake: current Alcohol intake frequency: a few times a month Alcohol type: wine Patient Tobacco Use Status: Never used Tobacco e-Cigarette/Vaping Use: Never Used Second Hand Smoke Exposure: No service: No Current occupational status: unemployed Cognitive needs: No Hearing needs: No Vision needs: Yes Female Reproductive History Menstrual Age of Menarche: 13 Review of Systems Const All systems reviewed & are unremarkable except as noted in HPI and below Reports no additional complaints Eyes Reports no additional complaints ENT Reports no additional complaints Card Reports no additional complaints Resp Reports no additional complaints GI Reports no additional complaints Reports no additional complaints Musc Reports no additional complaints Skin/Breast Reports system reviewed and no additional complaints, except as documented Neuro Reports no additional complaints Psych Reports no additional complaints Endo Reports no additional complaints Maxwell/Lymph Reports no additional complaints Aller/Immun Reports no additional complaints Physical Exam Vital Signs: Last Vital Signs Pulse 76 02/14/23 13:00 Pulse Ox 96 02/14/23 13:00 Oxygen Delivery Method Room Air 02/14/23 13:00 BMI result Body Mass Index 33.0 Const Other: Vital signs reviewed. Constitutional: Non-toxic appearing. No acute distress. Well-developed and well-nourished. HEENT: Normocephalic and atraumatic. Tympanic membranes without erythema, edema, or bulging bilaterally. Mild erythema bilateral external auditory canals. Moist mucous membranes. Mild posterior pharyngeal erythema but no edema or exudates. Skin: Warm and dry. No rashes or lesions noted. Neck: Full and painless range of motion. No cervical lymphadenopathy. Cardio: Regular rate and rhythm. No murmurs, gallops, or rubs. No lower extremity edema. No JVD. Pulmonary: No respiratory distress. No accessory muscle usage. Clear to auscultation bilaterally without wheezing, crackles, or rhonchi. Gastrointestinal: Soft, nontender, and nondistended in all 4 quadrants. Normoactive bowel sounds in all 4 quadrants. Genitourinary: No CVA tenderness. Musculoskeletal: Normal range of motion in joints throughout the body. No deformity or other signs of injury. Neuro: Alert and oriented x4. Cranial nerves 2-12 grossly intact. No focal deficits appreciated. Psych: Normal mood and affect. Assessment & Plan Assessment & Plan (1) Acute bronchitis: Code(s): J20.9 - Acute bronchitis, unspecified (2) Viral URI: Code(s): J06.9 - Acute upper respiratory infection, unspecified Plan This is a 57-year-old female presenting to the office complaining of chest congestion and cough with yellowish sputum in the setting of recent viral URI symptoms. History and physical most consistent with an acute bronchitis secondary to viral URI. Patient's vital signs are stable, her physical exam is benign, and she is overall nontoxic appearing. Patient will be sent home on p.o. prednisone 40 mg daily x5 days. Chest x-ray was obtained. If there is evidence of pneumonia, we will send a Z-Brandt. Recommended symptomatic management including rest, increased fluids, advil/tylenol for pain/fever, and over the counter throat lozenges/decongestants. Patient advised to follow up here or go to the emergency room for worsening/persistent symptoms. Patient verbalized understanding and is agreeable with the plan. Orders: Orders XR chest 2V Today R05.9 - Cough, unspecified Medications: New benzonatate 100 mg PO TID PRN 10 caps 0RF cough prednisone 40 mg (2 x 20 mg) PO DAILY 10 tabs 0RF Coding Level of Care Code Est Pt Level 3 (35868) Diagnoses Acute bronchitis J20.9 Viral URI J06.9
[2023-02-14 13:00] VITALS: BP 130/80; PULSE 76; TEMP 37.4; O2SAT 96; BMI 33.0
== END 2023-02-14 14:13 | disposition home or self-care (01) ==
PROVIDERS: PCP Internal Medicine; Visit Provider Physician Assistant Medical
DX: J20.9 Acute bronchitis, unspecified (principal); J06.9 Acute upper respiratory infection, unspecified
CPT/HCPCS: 99213

== ENCOUNTER 2023-02-14 13:13 | Outpatient (REF) | payer OTHER, SELFPAY | END 2023-02-14 13:14 | disposition home or self-care (01) | LOC: HO.HMGCX 13:13 | PROVIDERS: Visit Provider Physician Assistant Medical | DX: R05.9 Cough, unspecified (principal) | CPT/HCPCS: 71046 ==

== ENCOUNTER 2023-02-19 14:47 | Outpatient (AMB) | payer OTHER, SELFPAY ==
--- NOTE | 2023-02-19 14:50 | A.OFFPC_ITS ---
Vital Signs 02/19/23 14:51 Height 5 ft 4 in Weight 196 lb 6 oz BMI 33.7 BP 110/58 L Blood Pressure Location Lt brachial Position Sitting Pulse 79 Pulse Source Pulse Oximeter Pulse Oximetry (%) 92 Oxygen Delivery Method Room Air Intake Visit Reasons: 6W. F/U-Fibromyalgia Allergies aspirin [Aspirin] Allergy (Mild, Verified 02/19/23 14:51) GI UPSET, upset stomach, stomach upset Medication List - Last Reconciled 02/19/23 by La Clemens MD benzonatate 100 mg PO TID PRN cyclobenzaprine 5 mg PO BEDTIME PRN fluoxetine 20 mg PO DAILY gabapentin 800 mg PO BEDTIME hydroxychloroquine (Plaquenil) 200 mg PO DAILY hydroxyzine pamoate 25 mg PO TID PRN lamotrigine 200 mg PO DAILY linaclotide (Linzess) 72 mcg PO QAM mirtazapine 30 mg PO BEDTIME pantoprazole 20 mg PO DAILY prednisone 40 mg (2 x 20 mg) PO DAILY quetiapine 200 mg PO BEDTIME Tobacco use date assessed: 02/19/23 Dental Screening Dental Screen Date: 02/19/23 Did you have a dental visit in the last 12 months?: No Did you have a dental problem in the last 6 months where you did not have access to dental care?: No Was dental information given to patient?: Patient has dentist HPI 6W. F/U-Fibromyalgia HPI Details Patient is 57-year-old female came in today to be evaluated for lung infection Patient says that 10 days ago she got sick with cough chest congestion and then shortness of breath started She went to [facility] which she was diagnosed with a viral respiratory tract infection and was given symptomatic treatment Patient says that she did get better and started getting fever so she came in to our walk-in clinic last Friday She had a chest x-ray done which did not show any pneumonia however there is slight she had to seen on a long x-ray which I will address at her next visit in 2 weeks Is having difficulty breathing still and now also have a chest congestion. I am treating her with azithromycin for 10 days along with prednisone 50 mg once a day for 5 days With diagnosis of walking pneumonia. Patient will return in 2 weeks for follow-up [facility] Medical History Migraine Depression IBS (irritable bowel syndrome) Fibromyalgia Undifferentiated connective tissue disease Surgical History History of bilateral ligation of fallopian tubes Family History Mother HTN (hypertension) Brother Diabetes Father Heart attack Other Mental health disorder Social History Household Members: None Housing: House Are you a primary neonatal intensive care nurse to a significant other at home: No Do you presently have visiting nurse or other home services: No Alcohol intake: current Alcohol intake frequency: a few times a month Alcohol type: wine Patient Tobacco Use Status: Never used Tobacco e-Cigarette/Vaping Use: Never Used Second Hand Smoke Exposure: No service: No Current occupational status: unemployed Cognitive needs: No Hearing needs: No Vision needs: Yes Female Reproductive History Menstrual Age of Menarche: 13 Questionnaire Thrive Questionnaire Date Thrive assessed: 10/03/21 AUDIT C Alcohol Use Questionnaire (AUDIT-C) 1. How often do you have a drink containing alcohol?: Never 3. How often do you have six or more drinks on one occasion?: Never Total Score: 0 Score Reviewed/Action Taken: Yes SPENSER-7 AMB Questionnaire SPENSER-7 Date SPENSER - 7 assessed: 10/03/21 Source: Developed by Drs. Evgeny Infante, Celina Soto, Wing Izaguirre and colleagues, with an educational deniz from [employer]. Review of Systems Const Denies chills and Denies fever(s) ENT Denies epistaxis and Denies nasal discharge Card Denies chest pain Resp Denies hemoptysis GI Denies diarrhea and Denies nausea Skin/Breast Denies rash Neuro Reports no additional complaints Psych Reports no additional complaints Endo Reports no additional complaints Physical exam (Primary Care) Vital Signs: Last Vital Signs Pulse 79 02/19/23 14:51 BP 110/58 L 02/19/23 14:51 Pulse Ox 92 02/19/23 14:51 Oxygen Delivery Method Room Air 02/19/23 14:51 BMI result Body Mass Index 33.7 Tobacco/Smoking Status: Tobacco use Status Tobacco use date assessed 02/19/23 02/19/23 14:51 Patient Tobacco Use Status Never used Tobacco 02/19/23 14:51 e-Cigarette/Vaping Use Never Used 02/19/23 14:51 Thrive Assessment: Date of Thrive Assessment Date Thrive assessed 10/03/21 02/19/23 14:51 Const General: cooperative, comfortable and no acute distress Orientation/consciousness: patient oriented x3 HENMT Head: Yes normocephalic Eyes General: appearance normal, both eyes and all related structures Neck Neck: Yes supple Resp Other: Bilateral wheezing at the bases with some rhonchi Effort & Inspection: able to speak in complete sentences and no stridor Cardio Rhythm: regular rhythm Heart sounds: S1 normal heart sound present and S2 normal heart sound present Skin General skin exam: turgor normal Neuro General: patient oriented x3, tone normal and moves all extremities Extrem Right lower extremity: no edema Left lower extremity: no edema Assessment and Plan Assessment & Plan (1) Walking pneumonia: Code(s): J18.9 - Pneumonia, unspecified organism (2) Shortness of breath: Code(s): R06.02 - Shortness of breath (3) Wheezing on both sides of chest: Code(s): R06.2 - Wheezing Plan Patient is 57-year-old female came in today to be evaluated for lung infection Patient says that 10 days ago she got sick with cough chest congestion and then shortness of breath started She went to [facility] which she was diagnosed with a viral respiratory tract infection and was given symptomatic treatment Patient says that she did get better and started getting fever so she came in to our walk-in clinic last Friday She had a chest x-ray done which did not show any pneumonia however there is slight she had to seen on a long x-ray which I will address at her next visit in 2 weeks Is having difficulty breathing still and now also have a chest congestion. I am treating her with azithromycin for 10 days along with prednisone 50 mg once a day for 5 days With diagnosis of walking pneumonia. Patient will return in 2 weeks for follow-up Medications: New 2 azithromycin Take 2 tablets today then 1 daily 250 mg PO ONCE 12 tabs 0RF 11 days J06.9 - Acute upper respiratory infection, unspecified prednisone 50 mg PO DAILY 5 tabs 0RF 5 days Coding Level of Care Code Est Pt Level 4 (62201) Diagnoses Walking pneumonia J18.9 Shortness of breath R06.02 Wheezing on both sides of chest R06.2
[2023-02-19 14:51] VITALS: BP 110/58; PULSE 79; O2SAT 92; BMI 33.7
== END 2023-02-19 16:44 | disposition home or self-care (01) ==
PROVIDERS: PCP Internal Medicine; Visit Provider Internal Medicine
DX: J18.9 Pneumonia, unspecified organism (principal); R06.02 Shortness of breath; R06.2 Wheezing
CPT/HCPCS: 99214

== ENCOUNTER 2023-03-07 07:31 | Day surgery (SDC) | payer OTHER, SELFPAY ==
[2023-03-04 15:23] VITALS: BMI 33.7
--- NOTE | 2023-03-05 13:44 | P.CONAN_ITS ---
Documented by User: Pretty Paz NP 03/05/23 13:47 HPI - Anesthesia Eval Consult details Narrative: 57yo F for Colonoscopy Seen at PCP 02/19/23 for chest congestion and SOB. PMFSH Active Problems Active Problems: All Active Problems (Updated 02/19/23 @ 15:29 by La Clemens MD) Wheezing on both sides of chest (Acute) Shortness of breath (Acute) Walking pneumonia (Acute) Dyspepsia (Acute) Right rotator cuff tendonitis (Acute) Weight gain (Acute) Enlarged uterus (Acute) Major depression, recurrent (Acute) Leukopenia (Acute) Obesity due to excess calories (Acute) Bilateral hand numbness (Acute) Fibromyalgia (Acute) Undifferentiated connective tissue disease (Acute) Past Medical History Medical History (Updated 03/07/23 @ 07:53 by Gemini Muir, AMRIK) Hx of bronchitis Migraine Depression IBS (irritable bowel syndrome) Fibromyalgia Undifferentiated connective tissue disease Family History Family History Mother HTN (hypertension) Brother Diabetes Father Heart attack Other Mental health disorder Surgical History Surgical History (Updated 03/04/23 @ 15:15 by Dyana Tate, AMRIK) History of endometrial ablation History of History of bilateral ligation of fallopian tubes Social History Social History Household Members: None Housing: House Are you a primary personal care worker to a significant other at home: No Do you presently have visiting nurse or other home services: No Alcohol intake: current Alcohol intake frequency: does not drink Alcohol type: wine Patient Tobacco Use Status: Never used Tobacco e-Cigarette/Vaping Use: Never Used Second Hand Smoke Exposure: No Are you DNR?: No Advance Directives: No Advance Directives Information Provided: Yes service: No Current occupational status: unemployed Cognitive needs: No Hearing needs: No Vision needs: Yes Meds Allergies Allergy/AdvReac Type Severity Reaction Status Date / Time aspirin [Aspirin] Allergy Mild GI UPSET, Verified 02/19/23 14:51 upset stomach, stomach upset Home Medications Medication Instructions Recorded Confirmed Last Taken Type quetiapine 200 mg tablet 200 mg PO BEDTIME 08/08/21 02/19/23 Unknown History mirtazapine 30 mg tablet 30 mg PO BEDTIME 10/03/21 02/19/23 Unknown History hydroxychloroquine 200 mg tablet 200 mg PO DAILY 01/25/22 02/19/23 Unknown History (Plaquenil) fluoxetine 20 mg capsule 20 mg PO DAILY 12/16/22 02/19/23 Unknown History hydroxyzine pamoate 25 mg capsule 25 mg PO TID PRN anxiety 12/16/22 02/19/23 Unknown History linaclotide 72 mcg capsule 72 mcg PO QAM 12/16/22 02/19/23 Unknown History (Linzess) lamotrigine 200 mg tablet 200 mg PO DAILY 01/17/23 02/19/23 Unknown History Exam Exam Date and Time: March 05, 2023 1344 Height,Weight and Vital Signs: Height 5 ft 4 in Weight 89.074 kg Pertinent Lab Results Pertinent Lab Results: Laboratory Tests 01/27/23 13:27 WBC 4.6 L Hgb 13.3 Hct 40.4 Plt Count 236 Sodium 143 Potassium 4.0 Chloride 108 Carbon Dioxide 28 BUN 12 Creatinine 0.90 Assessment and Plan Assessment Anesthesia Assessment: Chart Reviewed Documented by User: Kervin Finley MD 03/07/23 08:50 PMFSH Past Medical History Medical History (Updated 03/07/23 @ 07:53 by Gemini Muir RN) Hx of bronchitis Migraine Depression IBS (irritable bowel syndrome) Fibromyalgia Undifferentiated connective tissue disease Family History Family History Mother HTN (hypertension) Brother Diabetes Father Heart attack Other Mental health disorder Family history of problems with anesthesia: No Surgical History Surgical History (Updated 03/04/23 @ 15:15 by Dyana Tate RN) History of endometrial ablation History of History of bilateral ligation of fallopian tubes History of Problems with Anesthesia: No Social History Social History Household Members: None Housing: House Are you a primary personal care worker to a significant other at home: No Do you presently have visiting nurse or other home services: No Alcohol intake: current Alcohol intake frequency: does not drink Alcohol type: wine Patient Tobacco Use Status: Never used Tobacco e-Cigarette/Vaping Use: Never Used Second Hand Smoke Exposure: No Are you DNR?: No Advance Directives: No Advance Directives Information Provided: Yes service: No Current occupational status: unemployed Cognitive needs: No Hearing needs: No Vision needs: Yes Meds Allergies Allergy/AdvReac Type Severity Reaction Status Date / Time aspirin [Aspirin] Allergy Mild GI UPSET, Verified 02/19/23 14:51 upset stomach, stomach upset Home Medications Medication Instructions Recorded Confirmed Last Taken Type quetiapine 200 mg tablet 200 mg PO BEDTIME 08/08/21 02/19/23 Unknown History mirtazapine 30 mg tablet 30 mg PO BEDTIME 10/03/21 02/19/23 Unknown History hydroxychloroquine 200 mg tablet 200 mg PO DAILY 01/25/22 02/19/23 Unknown History (Plaquenil) fluoxetine 20 mg capsule 20 mg PO DAILY 12/16/22 02/19/23 Unknown History hydroxyzine pamoate 25 mg capsule 25 mg PO TID PRN anxiety 12/16/22 02/19/23 Unknown History linaclotide 72 mcg capsule 72 mcg PO QAM 12/16/22 02/19/23 Unknown History (Linzess) lamotrigine 200 mg tablet 200 mg PO DAILY 01/17/23 02/19/23 Unknown History Exam Airway Mallampati Class: II TM Dist: >3cm Neck ROM: Full Heart: rrr Lungs: cta Assessment and Plan Assessment Anesthesia Assessment: Anesthesia Plan Discussed Final Anesthetic Review Family History of Problems with Anesthesia: No History of Problems with Anesthesia: No NPO: Yes ASA Class: II Final Preanesthetic Review: No Changes in Pt Med Stat, Meds/Allgs Chart Reviewed, Consent Obtained/Reviewed and Anes Risks/Benef Reviewed Patient Risk: Intermediate Procedure Risk: Low Anesthetic Plan Anesthetic Plan: MAC: and Agree w/ Assess. and Plan Disposition: Standard PACU
[2023-03-07 07:50] VITALS: BP 153/73; PULSE 64; RESP 20; TEMP 36.6; O2SAT 97
[2023-03-07] MEDS: Lactated Ringers 1,000 ML 100 ML IVCONT (08:04)
[2023-03-07 09:27] VITALS: BP 122/62; PULSE 61; RESP 16; TEMP 36.7; O2SAT 98
--- NOTE | 2023-03-07 09:33 | P.BOP_ITS ---
Brief Operative Note Date of Service: 03/07/23 Pre-op diagnosis: see H&P no changes Post-op diagnosis: same Surgeon: Tha Waldron MD Anesthesia: MAC Was an Valving Machine Operator used for this Procedure?: No Estimated blood loss (mL): 0 Pathology: other Condition: stable Disposition: PACU
--- NOTE | 2023-03-07 09:33 | MHC.SHP ---
Pre-Procedural Eval Section A Date of Service: 03/07/23 Section B Chief Complaint: screening Details of Present Illness: see H&P no changes Relevant Family History (Specify if Yes): No Relevant Social History: None Present Medications: see Short Stay Collaborative assessment Medical History: No relevant PMH History of Previous Operations: No relevant previous surgery Allergies: Allergies Allergy/AdvReac Type Severity Reaction Status Date / Time aspirin [Aspirin] Allergy Mild GI UPSET, Verified 02/19/23 14:51 upset stomach, stomach upset Review of Systems Sugical H&P ROS: Negative: Constitution, Cardiovascular, Respiratory, Neurological, Psychiatric, Hem-Onc, Allergic/Immunologic, Gastrointestinal, Genitourinary, Musculoskeletal, Integumentary, Endocrine and Eyes/Ears/Nose/Throat Exam Surgical H&P Exam: Normal: HEENT, Normal: Heart, Normal: Lungs, Normal: Extremities, Normal: Abdomen, Normal: Skin and Normal: Neurological Plan Diagnosis/Plan: Unchanged I have reviewed the history and physical and performed a pertinent physical examination on my patient. No changes have occurred unless specified. Time Spent With Patient Time: Total time managing care of this patient today ____ minutes.
[2023-03-07 09:42] VITALS: BP 128/63; PULSE 56; RESP 16; TEMP 36.7; O2SAT 99
--- NOTE | 2023-03-07 09:43 | OP_ITS ---
DATE OF SERVICE: 03/07/2023 SURGEON: Tha Waldron MD INDICATIONS: Colon cancer screening and prior history of adenomatous colon polyps. PREOPERATIVE DIAGNOSIS: POSTOPERATIVE DIAGNOSIS: PROCEDURE PERFORMED: Colonoscopy to the terminal ileum. ESTIMATED BLOOD LOSS: COMPLICATIONS: ANESTHESIA: Monitored anesthesia care. ASSISTANTS: SPECIMENS: DESCRIPTION OF PROCEDURE: A history and physical were performed. The risks and benefits of the procedure were explained to the patient. Informed consent was obtained. The patient was placed in the left lateral decubitus position. A digital rectal exam was performed and was found to be normal. The Olympus pediatric video colonoscope was introduced into the rectum and advanced to the cecum. The cecum was identified by transillumination, palpation, and identification of ileocecal valve. Examination was performed and the scope was removed. She tolerated the procedure well and was taken to recovery in stable condition. FINDINGS: The terminal ileum was examined and appeared normal. The visualized colonic mucosa was normal. The quality of prep was good. No polyps were identified. Retroflexed examination was normal. IMPRESSION: Normal colonoscopy. RECOMMENDATIONS: 1. Follow up as needed. 2. Repeat colonoscopy is recommended in 10 years for average risk individuals. MD ALISON Gibson/PATTI / [id number]
== END 2023-03-07 10:03 | disposition home or self-care (01) ==
PROVIDERS: PCP Internal Medicine; Visit Provider Internal Medicine Gastroenterology
PROC: 0DJD8ZZ Inspection of Lower Intestinal Tract, Via Natural or Artificial Opening Endoscopic (ICD-10-PCS; CPT 45378; principal; 2023-03-07 08:30)
DX: Z12.11 Encounter for screening for malignant neoplasm of colon (principal); Z86.010 Personal history of colon polyps; K58.1 Irritable bowel syndrome with constipation; M79.7 Fibromyalgia; M35.9 Systemic involvement of connective tissue, unspecified; N80.9 Endometriosis, unspecified; F41.8 Other specified anxiety disorders; Z79.899 Other long term (current) drug therapy
CPT/HCPCS: 45378

== ENCOUNTER 2023-03-11 15:16 | Outpatient (AMB) | payer OTHER, SELFPAY ==
--- NOTE | 2023-03-11 15:27 | MHC.PC.OV ---
Vital Signs 03/11/23 15:28 Height 5 ft 4 in Weight 192 lb 6 oz BMI 33.0 BP 116/64 Blood Pressure Location Rt brachial Position Sitting Pulse 75 Pulse Source Pulse Oximeter Pulse Oximetry (%) 98 Oxygen Delivery Method Room Air Intake Visit Reasons: 2 week follow up PT needs appt after 3pm Allergies aspirin [Aspirin] Allergy (Mild, Verified 03/11/23 15:28) GI UPSET, upset stomach, stomach upset Medication List - Last Reconciled 03/11/23 by La Clemens MD fluoxetine 20 mg PO DAILY gabapentin 800 mg PO BEDTIME hydroxychloroquine (Plaquenil) 200 mg PO DAILY hydroxyzine pamoate 25 mg PO TID PRN lamotrigine 200 mg PO DAILY linaclotide (Linzess) 72 mcg PO QAM mirtazapine 30 mg PO BEDTIME pantoprazole 20 mg PO DAILY quetiapine 200 mg PO BEDTIME Tobacco use date assessed: 03/11/23 Dental Screening Dental Screen Date: 03/11/23 Did you have a dental visit in the last 12 months?: Yes Did you have a dental problem in the last 6 months where you did not have access to dental care?: No Was dental information given to patient?: Patient has dentist HPI 2 week follow up PT needs appt after 3pm HPI Details Patient is a 57-year-old female came in today to have a follow-up on pneumonia She was treated with prednisone and 2 weeks of azithromycin Chest x-ray was done which showed 1. No radiographically evident acute pulmonary abnormalities. 2. A 2 cm opacity in the posterior mid-chest appears with slightly intensity compared with 2020, potentially related to lateral osteophytosis. If symptoms persist, follow-up CT may better characterize. She is at that her period was sick so she had to go to [place] and back last week She was feeling better when she took the antibiotic but when she came back her symptoms came back Now she is coughing and have chest congestion She has some rhonchi right lower lung as well on examination I am repeating azithromycin again for 1 week I have also ordered CT scan of her lungs because of opacity seen on x-ray FOR[facility]LY [facility] Medical History Hx of bronchitis Migraine Depression IBS (irritable bowel syndrome) Fibromyalgia Undifferentiated connective tissue disease Surgical History History of endometrial ablation History of History of bilateral ligation of fallopian tubes Family History Mother HTN (hypertension) Brother Diabetes Father Heart attack Other Mental health disorder Social History Household Members: None Housing: House Are you a primary ambulatory care coordinator to a significant other at home: No Do you presently have visiting nurse or other home services: No Alcohol intake: current Alcohol intake frequency: does not drink Alcohol type: wine Patient Tobacco Use Status: Never used Tobacco e-Cigarette/Vaping Use: Never Used Second Hand Smoke Exposure: No service: No Current occupational status: unemployed Cognitive needs: No Hearing needs: No Vision needs: Yes Female Reproductive History Menstrual Age of Menarche: 13 Questionnaire PHQ-9 Over the last 2 weeks, how often have you been bothered by any of the following problems? 1. Little interest or pleasure in doing things: several days 2. Feeling down, depressed, or hopeless: not at all 3. Trouble falling or staying asleep, or sleeping too much: not at all 4. Feeling tired or having little energy: not at all 5. Poor appetite or overeating: more than half the days 6. Feeling bad about yourself - or that you are a failure or have let yourself or your family down: several days 7. Trouble concentrating on things, such as reading the newspaper or watching television: more than half the days 8. Moving or speaking so slowly that other people could have noticed. Or the opposite - being so fidgety or restless that you have been moving around a lot more than usual: more than half the days 9. Thoughts that you would be better off or of hurting yourself in some way: not at all Total score: 8 Depression Screening Interpretation: Positive Depression Screening Follow-up: Existing condition and In treatment Depression Screening Done: Yes 57415 - PHQ-9 Billing: Yes Source: Developed by Drs. Evgeny Infante, Celina Soto, Wing Izaguirre and colleagues, with an educational deniz from [employer]. Thrive Questionnaire Date Thrive assessed: 10/03/21 AUDIT C Alcohol Use Questionnaire (AUDIT-C) 1. How often do you have a drink containing alcohol?: Never 3. How often do you have six or more drinks on one occasion?: Never Total Score: 0 Score Reviewed/Action Taken: Yes SPENSER-7 AMB Questionnaire SPENSER-7 Date SPENSER - 7 assessed: 10/03/21 Source: Developed by Drs. Evgeny Infante, Celina Soto, Wing Izaguirre and colleagues, with an educational deniz from [employer]. SPENSER-7 Assessment Billing SPENSER-7 Assessment Tool: pt declined-do not bill Review of Systems Const Denies chills and Denies fever(s) ENT Denies epistaxis and Denies nasal discharge Card Denies chest pain Resp Denies hemoptysis GI Denies diarrhea and Denies nausea Skin/Breast Denies rash Neuro Reports no additional complaints Psych Reports no additional complaints Endo Reports no additional complaints Physical exam (Primary Care) Vital Signs: Last Vital Signs Pulse 75 03/11/23 15:28 BP 116/64 03/11/23 15:28 Pulse Ox 98 03/11/23 15:28 Oxygen Delivery Method Room Air 03/11/23 15:28 BMI result Body Mass Index 33.0 Tobacco/Smoking Status: Tobacco use Status Tobacco use date assessed 03/11/23 03/11/23 15:29 Patient Tobacco Use Status Never used Tobacco 03/11/23 15:29 e-Cigarette/Vaping Use Never Used 03/11/23 15:29 Depression Screening Interpretation: Positive Depression Screening Follow-up: Existing condition and In treatment Thrive Assessment: Date of Thrive Assessment Date Thrive assessed 10/03/21 03/11/23 15:29 Const General: cooperative, comfortable and no acute distress Orientation/consciousness: patient oriented x3 HENMT Head: Yes normocephalic Eyes General: appearance normal, both eyes and all related structures Neck Neck: Yes supple Resp Other: rhonchi right lower lobe posteriorly, no wheezing Effort & Inspection: able to speak in complete sentences and no stridor Cardio Rhythm: regular rhythm Heart sounds: S1 normal heart sound present and S2 normal heart sound present Skin General skin exam: turgor normal Neuro General: patient oriented x3, tone normal and moves all extremities Extrem Right lower extremity: no edema Left lower extremity: no edema Assessment and Plan Assessment & Plan (1) Opacity of lung on imaging study: Code(s): R91.8 - Other nonspecific abnormal finding of lung field (2) Walking pneumonia: Code(s): J18.9 - Pneumonia, unspecified organism (3) Shortness of breath: Code(s): R06.02 - Shortness of breath Plan Patient is a 57-year-old female came in today to have a follow-up on pneumonia She was treated with prednisone and 2 weeks of azithromycin Chest x-ray was done which showed 1. No radiographically evident acute pulmonary abnormalities. 2. A 2 cm opacity in the posterior mid-chest appears with slightly intensity compared with 2020, potentially related to lateral osteophytosis. If symptoms persist, follow-up CT may better characterize. She is at that her period was sick so she had to go to [place] and back last week She was feeling better when she took the antibiotic but when she came back her symptoms came back Now she is coughing and have chest congestion She has some rhonchi right lower lung as well on examination I am repeating azithromycin again for 1 week I have also ordered CT scan of her lungs because of opacity seen on x-ray Orders: Orders CT chest w IV con Today R91.8 - Other nonspecific abnormal finding of lung field Medications: New azithromycin Take 2 tablets today then 1 daily 250 mg PO ONCE 5 days 6 tabs 0RF J06.9 - Acute upper respiratory infection, unspecified Coding Level of Care Code Est Pt Level 4 (54664) Diagnoses Opacity of lung on imaging study R91.8 Walking pneumonia J18.9 Shortness of breath R06.02
[2023-03-11 15:28] VITALS: BP 116/64; PULSE 75; O2SAT 98; BMI 33.0
== END 2023-03-11 15:54 | disposition home or self-care (01) ==
PROVIDERS: PCP Internal Medicine; Visit Provider Internal Medicine
DX: R91.8 Other nonspecific abnormal finding of lung field (principal); J18.9 Pneumonia, unspecified organism; R06.02 Shortness of breath
CPT/HCPCS: 99214

== ENCOUNTER 2023-03-13 14:46 | Outpatient (AMB) | payer OTHER, SELFPAY ==
--- NOTE | 2023-03-13 14:48 | A.OFFVIS_ITS ---
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 Patient reports pain has been present for a while. She was seen by rheumatology who injected her shoulder sometime in the summer, however injection did not help. She also attended PT with no relief. Currently intermittent pain and stiffness, stating especially in the mornings. Her pain is located in the shoulder and armpit that will radiate down her arm to her bicep area. Finds temporary relief with Advil. Allergies aspirin [Aspirin] Allergy (Mild, Verified 03/13/23 14:49) GI UPSET, upset stomach, stomach upset HPI beauty specialist- shoulder lesions, right shoulder HPI Details 57-year-old female who [facility] for evaluation of right shoulder pain. She states she has intermittent pain and stiffness in her shoulder, which radiates down to her arm and bicep area. Her pain is worse in the morning and with reaching back or lifting objects. She was seen by rheumatology where she was given tato njection which provided relief for about 4 days. She did attend physical therapy in the Summer with no relief. She finds transient relief with Advil. She does not have a history of diabetes. [facility] Medical History (Updated 03/13/23 @ 15:11 by Val Saldivar PA-C) Hx of bronchitis Migraine Depression IBS (irritable bowel syndrome) Fibromyalgia Undifferentiated connective tissue disease Surgical History (Updated 03/13/23 @ 14:49 by BRITTANY Warner) Hx of colonoscopy History of endometrial ablation History of History of bilateral ligation of fallopian tubes Family History Mother HTN (hypertension) Brother Diabetes Father Heart attack Other Mental health disorder Social History (Updated 03/13/23 @ 14:50 by BRITTANY Warner) Household Members: None Housing: House Are you a primary healthcare prof to a significant other at home: No Do you presently have visiting nurse or other home services: No Alcohol intake: current Alcohol intake frequency: does not drink Alcohol type: wine Patient Tobacco Use Status: Never used Tobacco e-Cigarette/Vaping Use: Never Used Second Hand Smoke Exposure: No service: No Current occupational status: employed Current occupation: paraprofessional Cognitive needs: No Hearing needs: No Vision needs: Yes Female Reproductive History Menstrual Age of Menarche: 13 Review of Systems Const All systems reviewed & are unremarkable except as noted in HPI and below Physical Exam Vital Signs: BMI result Body Mass Index 33.0 Const General: cooperative, healthy appearing, comfortable, no acute distress, well developed and alert Orientation/consciousness: patient oriented x3 HEENT Head: Yes normal to inspection, Yes normocephalic and Yes atraumatic Eyes General: appearance normal, both eyes and all related structures Resp Effort & Inspection: normal respiratory effort and able to speak in complete sentences Cardio Rate: regular rate Peripheral pulses: Peripheral pulses 2+ throughout GI Palpation (GI): Soft to palpation Skin Lesions: no lesions Rashes: no rashes Neuro General: patient oriented x3 Extrem Other: Right shoulder normal to inspection. Tenderness over the bicipital groove and along the deltoid region of the shoulder. Forward flexion to 125, external rotation to 90, internal rotation to S1. 5/5 RTC strength. Positive Dubose and [place]'s. NVI. Office Procedures Joint Injection/Drain Joint Injection/Drain Primary Site: right shoulder Prep: site was prepped using aseptic technique, ethochloride spray was applied and injection warnings given Injected: 80 mg of, DepoMedrol, with 8 mL of, 1% plain lidocaine and in the subcromial space Approach Used: posterolateral Procedure: The patient tolerated the procedure well and there was some relief with the local anesthesia Coding 80464 - Glenohumeral/Tronchanteric Bursa/Intraarticular Procedure code (CPT) selection complete Results Reviewed Results Reviewed: 03/13/23 15:07 Lidocaine HCl 2 % MPF [Xylocaine 2 % MPF] 5 ml .ROUTE .STK-MED ONE methylPREDNISolone acetate [DEPO-MedroL] 80 mg .ROUTE .STK-MED ONE xrays of the right shoulder obtained on 08/19/22 show mild acj oa with type 2 acromion Assessment & Plan Assessment & Plan (1) Biceps tendonitis on right: Code(s): M75.21 - Bicipital tendinitis, right shoulder (2) Right rotator cuff tendonitis: Code(s): M75.81 - Other shoulder lesions, right shoulder Plan We discussed options today which include steroid injection. They did consent to move forward with the right shoulder injection, which was tolerated well. I recommended rest, ice and elevation and OTC anti-inflammatories PRN for discomfort. An MRI of the right shoulder has also been ordered to further evaluate the intergrity of RTC. If symptoms persist or worsens over the next 6-8 weeks, patient will contact the office, otherwise follow-up as needed. Orders: Orders MR shoulder RT wo con Today M75.21 - Bicipital tendinitis, right shoulder, M75.81 - Other shoulder lesions, right shoulder Patient Instructions: Scribed for Val Saldivar PA-C, by Mane Sam medical office administrator, on 03/13/2023 at 3:00 PM EST. I, Val Saldivar PA-C, have personally reviewed and agree with the information entered by the scribe. Coding Level of Care Code New Pt Level 3 (41741) Diagnoses Biceps tendonitis on right M75.21 Right rotator cuff tendonitis M75.81 CPT Codes Coding - Joint 7: 91129 - Glenohumeral/Tronchanteric Bursa/Intraarticular ([id number])
[2023-03-13 14:57] VITALS: BMI 33.0
== END 2023-03-13 16:05 | disposition home or self-care (01) ==
PROVIDERS: PCP Internal Medicine; Visit Provider Physician Assistant
DX: M75.21 Bicipital tendinitis, right shoulder (principal); M75.81 Other shoulder lesions, right shoulder
CPT/HCPCS: 20610; 99204

== ENCOUNTER → 2023-03-13 14:46 | Outpatient (BNVA) | payer OTHER, SELFPAY | PROVIDERS: PCP Internal Medicine; Visit Provider Physician Assistant | DX: M75.21 Bicipital tendinitis, right shoulder (principal); M75.81 Other shoulder lesions, right shoulder | CPT/HCPCS: 20610; 99202; J1040 ==

== ENCOUNTER 2023-04-25 16:19 | Outpatient (REF) | payer OTHER, SELFPAY ==
[2023-04-25 21:15] LABS: Anion Gap 17 (12-20); Blood Urea Nitrogen 14 mg/dL (9-16); Calcium 9.7 mg/dL (8.4-10.2); Carbon Dioxide 26 mmol/L (22-29); Chloride 105 mmol/L (96-108); Estimated Glomerular Filt Rate > 60; Glucose Random 76 mg/dL (60-115); Sodium 144 mmol/L (135-145)
== END 2023-04-25 16:20 | disposition home or self-care (01) ==
LOC: HO.LAB 16:19
PROVIDERS: PCP Internal Medicine; Visit Provider Internal Medicine
DX: R91.8 Other nonspecific abnormal finding of lung field (principal)
CPT/HCPCS: 36415; 80048

== ENCOUNTER 2023-05-01 07:55 | Outpatient (REF) | payer OTHER, SELFPAY ==
[2023-05-01] MEDS: iohexoL 350 MG/ML 100 ML INFUS..BTL IV (09:36)
== END 2023-05-01 07:56 | disposition home or self-care (01) ==
LOC: HO.CT 07:55
PROVIDERS: PCP Internal Medicine; Visit Provider Internal Medicine
DX: R91.8 Other nonspecific abnormal finding of lung field (principal)
CPT/HCPCS: 71260; Q9967

== ENCOUNTER 2023-07-03 09:22 | Outpatient (AMB) | payer OTHER, SELFPAY ==
--- NOTE | 2023-07-03 09:33 | A.OFFVIS_ITS ---
Intake Vital Signs 07/03/23 09:34 Height 5 ft 4 in Weight 193 lb 5.526 oz BMI 33.2 BP 102/60 Blood Pressure Location Lt brachial Position Sitting Pulse 76 Pulse Source Pulse Oximeter Temp 97.4 F Temp Source Skin Pulse Oximetry (%) 97 Oxygen Delivery Method Room Air Intake Visit Reasons: FM Intake Note: Patient last seen 12/16/[address] Couch, presents today for FM follow up and test results. Shoulder MRI was denied. Reports generalized body pain 10/10 pain scale. Reports cortisone injection on right shoulder did not help much. Done by internal ortho. c/o right knee pain, feels bump behind knee c/o right ankle pain Miller Head Assistant Wet Process Required: No Accompanied by: Self / Same As Patient Allergies aspirin [Aspirin] Allergy (Mild, Verified 07/03/23 09:34) GI UPSET, upset stomach, stomach upset HPI HPI Comments History of Present Illness Details Ms. Lazo 58 yoF returns today for follow-up of undifferentiated connective tissue disease and fibromyalgia. Patient reports that some years ago she was told that, based on her labs, she could develop lupus and so she was put on hydroxychloroquine to prevent the lupus from developing. Upon inquiry she endorses dry mouth, gets rash on her cheeks when the time is very very hot . She has herpes outbreaks. Her main concerns today is her upper arm muscle pain that may be connected to her shoulder pain. The pain is mostly felt on the right side. It prevents her from combing her hair as her upper arm gets tired and painful to do so. She also has right swollen ankle and right leg weakness. She says that her hips are very tender and interrupts her sleep. She describes that her hands are stiff in the mornings but they do get better in about 10 minutes with movements and stretches. Patient also describes pain around her mid torso that is felt with deep breathing and is also made worse when she makes sudden movement. She was given muscle relaxer by her PCP but that has not been effective. She did see the eye doctor in June 2023 and had no concerns. Prior Visit 12/2022 The patient presents with right shoulder pain. She says she overused that shoulder shoveling some snow back in June. She also is on hydroxychloroquine 200 mg daily for what has been labeled as undifferentiated connective tissue disease. She has been in some physical therapy for the shoulder but that has only helped slightly. She says upper arm and anterior shoulder pain occurs with lifting the arm up to the horizontal or overhead and at night when she lies on the shoulder. There has been no redness or swelling. Her other more overall pains continue from fibromyalgia. She seems comfortable otherwise outside the shoulder pain. She takes some gabapentin that she takes 800 mg at night. She is also on medicines for her psychiatric disorder. [facility] Medical History (Updated 07/03/23 @ 10:00 by GRETCHEN Gatica) Bilateral swelling of feet and ankles Bilateral ankle joint pain Pain in right arm Long-term use of immunosuppressant medication Hx of bronchitis Migraine Depression IBS (irritable bowel syndrome) Fibromyalgia Undifferentiated connective tissue disease Surgical History Hx of colonoscopy History of endometrial ablation History of History of bilateral ligation of fallopian tubes Family History Mother HTN (hypertension) Brother Diabetes Father Heart attack Other Mental health disorder Social History Household Members: None Housing: House Are you a primary district manager primary care sales to a significant other at home: No Do you presently have visiting nurse or other home services: No Alcohol intake: current Alcohol intake frequency: does not drink Alcohol type: wine Patient Tobacco Use Status: Never used Tobacco e-Cigarette/Vaping Use: Never Used Second Hand Smoke Exposure: No service: No Current occupational status: employed Current occupation: paraprofessional Cognitive needs: No Hearing needs: No Vision needs: Yes Female Reproductive History Menstrual Age of Menarche: 13 Review of Systems Const All systems reviewed & are unremarkable except as noted in HPI and below Physical Exam APPEARANCE: Patient in no acute distress, groomed, nourished EARS:? External ear normal NOSE/SINUS:? Airflow through both nares, no nasal discharge, no bleeding THROAT:? Oral mucosa moist, no ulcerations NECK:? No thyromegaly or masses, no adenopathy, trachea midline. HEART:? Regulrar rhythm, S1-S2 heard, no murmurs, rubs or gallops. LUNG:? Clear to percussion and auscultation ABD:? Normal bowel sounds, no organomegaly, masses or tenderness. EXTREMITIES:? No edema, no calf tenderness, normal peripheral pulses. SKIN:? No inflammatory or neoplastic lesions.? Normal color and turgor JOINT EXAM: Cervical Spine:.? Mild pain with lateral flexion at 15 degrees with extremes of normal rotation.? Some cervical muscle tenderness. Thoracic Spine:.? No scoliosis.? No tenderness on palpation. Lumbar Spine:.? Alignment normal.? Full range of motion with mild pain at the extremes.? Slight paraspinal muscle tenderness. Chest Wall:.? No tenderness, swelling, increased warmth or erythema. Hands:.? Normal pain-free range of motion with mild tenderness across the PIP joints but no the swelling, increased warmth or erythema. Able to make a full fist and has a good cleaning manager strength. Wrists:.? Normal pain-free range of motion without tenderness, swelling, increas ed warmth or erythema. Elbows:. Normal pain-free range of motion without tenderness, swelling, increased warmth or erythema. Shoulders:.? Right:? Mild to moderate pain with abduction at 110 degrees or with attempts at more than 15 degrees of internal or external rotation.? Pain is worse as we try to push the shoulder passively to 180 degrees of abduction.? There is similar pain with anterior flexion at 90 degrees.? There is [id number] anterior, subacromial and posterior tenderness.? There is no swelling, adenopathy or weakness.? Left:? Full range of motion with slight tenderness across the trapezial area.? There is minimal anterior and posterior tenderness without adenopathy, weakness, swelling, increased warmth or erythema. Tenderness to upper arm muscles on palpation, right greater than left. Hips:.? Full range of motion without pain. Hip bursa:? No tenderness. Knees:.?? Normal pain-free range of motion with mild patellofemoral crepitus.? There is mild medial compartment tenderness without effusion, soft tissue swelling, increased warmth or erythema.? There is no effusion or crepitation Ankles:.? Normal pain-free range of motion without tenderness, swelling, increased warmth or erythema. Feet:.? Right: Marked tenderness, swelling and increased warmth. Left: trace swelling. Normal pain-free range of motion without tenderness, increased warmth or erythema. Tender points: mild tenderness to digital palpation at the occiput, trapezius, second rib, lateral epicondyle, knees, greater trochanter and gluteal area bilaterally. Results Reviewed Results Reviewed: [address] [address] XRay Report Signed Patient: Violet Adhikari MR#: [id number] : 1965 Acct:[id number] Age/Sex: 57 / F ADM Date: 08/19/22 Loc: [facility] Attending Dr: Bill Couch MD Ordering Physician: Bill Couch MD Date of Service: 08/19/22 Procedure(s): XR shoulder RT min 2V Accession Number(s): [id number] cc: Bill Couch MD~ EXAMINATION: XR SHOULDER, RIGHT CLINICAL INFORMATION: Shoulder pain? COMPARISON: None available.? TECHNIQUE: AP external rotation, Grashey, scapular Y, and axillary views of the right shoulder. FINDINGS: The bones and soft tissues are normal. No fracture. Glenohumeral and acromioclavicular alignment is anatomic with normal joint space. No abnormal soft tissue calcifications.? XR/XR shoulder RT min 2V IMPRESSION: Normal right shoulder. Dictated By: Juliet Chairez MD Assessment & Plan Assessment & Plan (1) Fibromyalgia: Code(s): M79.7 - Fibromyalgia (2) Undifferentiated connective tissue disease: Comment: 2019: ESTER 1:80, speckled. WBC low. C3 and C4 low. Anti DNA, anti BOGDAN, Sjogren's antibodies all negative. The hydroxychloroquine since 2019. Eye exam ok 07/04 Code(s): M35.9 - Systemic involvement of connective tissue, unspecified (3) Right rotator cuff tendonitis: Code(s): M75.81 - Other shoulder lesions, right shoulder (4) Bilateral ankle joint pain: Code(s): M25.571 - Pain in right ankle and joints of right foot; M25.572 - Pain in left ankle and joints of left foot (5) Bilateral swelling of feet and ankles: Code(s): M25.471 - Effusion, right ankle; M25.472 - Effusion, left ankle; M25.474 - Effusion, right foot; M25.475 - Effusion, left foot (6) Long-term use of immunosuppressant medication: Code(s): Z79.60 - residential (current) use of unspecified immunomodulators and immunosuppressants Plan #UCTD/Rn Icu Use: Continue HCQ 200mg QD. We will obtain updated labs and further evaluate if undifferentiated connective tissue disease active. She did go to see the eye doctor and she is okay to continue with Plaquenil. We will also need to update labs for CBC while on plaquenil. Patient does not have respiratory or cardiac symptoms. I think the mid torso pain is muscle spasms and not cardiopulmonary related. Undifferentiated connective tissue disease is a clinical definition with a serological and clinical manifestations of systemic autoimmune disease, however, not fulfilling any criteria of defined connective tissue disease. This disease is considered a diagnosis of exclusion. Her ESTER is 1:80 and complements were low in the past. I will recheck these. She does endorse symptoms such as dry eyes and mouth, hair loss, and sun-sensitive rash, has hx of leukopenia, and abnormal nerve sensations in limbs. We will continue the plaquenil for now. I did discuss with patient that dry mouth can be because of her mood medications but I also suggest measures she can take to manage the dry mouth- lozenges, biotine toothpaste, increase hydration. # Right Ankle Pain and swelling: On PE there is marked swelling to lateral ankle, warmth, and tenderness, patient relates that it is difficult to walk and there is pain with all range of motion. I will obtain x-rays. I will consider giving her some prednisone with the goal that will help to resolve the issue. #Right Shoulder/Arm Pain:Patient has has received 2 corticosteroid injection in the space of 3 months and still reports no relief for her right shoulder. On PE today she says it is more the muscles of the right upper arm that is causing her concerns. 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 I will obtain ESR/CRP to assess as this sounds like PMR symptoms. I will also obtain CK aldolase to evaluate for muscle breakdown. On PE strength is 5/5 and no muscle wasting observed. Atfer labs and xrays are done, I will send her a course of pednisone for both arm and ankle and reassess. Prior Visit: The patient still has rotator cuff symptoms in the right shoulder. Given the overuse phenomena there could be some element of a tear here but impingement and tendinitis is also a possibility. We discussed orthopedic referral or trying a local injection today. We reviewed potential side effects of corticosteroid injections and she wants to try a corticosteroid injection. The right shoulder was prepped ChloraPrep and alcohol. The subacromial space was injected with 40 mg of triamcinolone and 1 cc of lidocaine. Patient tolerated the procedure well with no apparent immediate side effects. She will rest it for a few days and then begin some gentle, [id number] exercises. I told her that if it was not improving in 2 weeks she should call us and we would set up an orthopedic referral. She will stay on the gabapentin at night for the fibromyalgia. I still do not see much activity to suggest an active autoimmune rheumatic disease. If such relative inactivity continues we may consider stopping the hydroxychloroquine in the future. A follow-up is recommended for 6 months. I spent 50 minutes reviewing chart, evaluating patient and documenting Orders: Orders C Reactive Protein Today M35.9 - Systemic involvement of connective tissue, unspecified, Z79.60 - residential (current) use of unspecified immunomodulators and immunosuppressants Complete Blood Count Auto Diff Today M35.9 - Systemic involvement of connective tissue, unspecified, Z79.60 - bed bug exterminator (current) use of unspecified immunomodulators and immunosuppressants Erythrocyte Sedimentation Rate Today M35.9 - Systemic involvement of connective tissue, unspecified, Z79.60 - bed bug exterminator (current) use of unspecified imm unomodulators and immunosuppressants Immunoglobulins,IgG IgA IgM Today M35.9 - Systemic involvement of connective tissue, unspecified, Z79.60 - bed bug exterminator (current) use of unspecified immunomodulators and immunosuppressants Uric Acid Today M35.9 - Systemic involvement of connective tissue, unspecified, Z79.60 - bed bug exterminator (current) use of unspecified immunomodulators and immunosuppressants Complement C3 Today M35.9 - Systemic involvement of connective tissue, unspecified, Z79.60 - bed bug exterminator (current) use of unspecified immunomodulators and immunosuppressants Complement C4 Today M35.9 - Systemic involvement of connective tissue, unspecified, Z79.60 - bed bug exterminator (current) use of unspecified immunomodulators and immunosuppressants Aldolase Today M79.601 - Pain in right arm XR foot LT min 3V Today M25.471 - Effusion, right ankle, M25.472 - Effusion, left ankle, M25.474 - Effusion, right foot, M25.475 - Effusion, left foot, M25.571 - Pain in right ankle and joints of right foot, M25.572 - Pain in left ankle and joints of left foot ESTER Reflex Titer and Pattern Today M35.9 - Systemic involvement of connective tissue, unspecified, Z79.60 - residential (current) use of unspecified immunomodulators and immunosuppressants Anti DNA DS Antibody Today M35.9 - Systemic involvement of connective tissue, unspecified, Z79.60 - residential (current) use of unspecified immunomodulators an d immunosuppressants Comprehensive Met. Panel Today M35.9 - Systemic involvement of connective tissue, unspecified, Z79.60 - bed bug exterminator (current) use of unspecified immunomod ulators and immunosuppressants UA w Microscopic Today M35.9 - Systemic involvement of connective tissue, unspecified, Z79.60 - bed bug exterminator (current) use of unspecified immunomodulators and immunosuppressants Creatine Kinase Total Today M79.601 - Pain in right arm XR foot RT min 3V Today M25.471 - Effusion, right ankle, M25.472 - Effusion, left ankle, M25.474 - Effusion, right foot, M25.475 - Effusion, left foot, M25.571 - Pain in right ankle and joints of right foot, M25.572 - Pain in left ankle and joints of left foot Coding Level of Care Code Est Pt Level 5 (12341) Diagnoses Fibromyalgia M79.7 Undifferentiated connective tissue disease M35.9 Right rotator cuff tendonitis M75.81 Bilateral ankle joint pain M25.571; M25.572 Bilateral swelling of feet and ankles M25.471; M25.472; M25.474; M25.475 Long-term use of immunosuppressant medication Z79.60
[2023-07-03 09:34] VITALS: BP 102/60; PULSE 76; TEMP 36.3; O2SAT 97; BMI 33.2
== END 2023-07-03 10:07 | disposition home or self-care (01) ==
PROVIDERS: PCP Internal Medicine; Visit Provider Nurse Practitioner Family
DX: M35.89 Other specified systemic involvement of connective tissue (principal); M79.7 Fibromyalgia; M75.81 Other shoulder lesions, right shoulder; M25.571 Pain in right ankle and joints of right foot; M25.572 Pain in left ankle and joints of left foot; M25.471 Effusion, right ankle; M25.472 Effusion, left ankle; M25.474 Effusion, right foot; M25.475 Effusion, left foot; Z79.60 Long term (current) use of unspecified immunomodulators and immunosuppressants
CPT/HCPCS: 99215

== ENCOUNTER → 2023-07-03 09:22 | Outpatient (BNVA) | payer OTHER, SELFPAY | PROVIDERS: PCP Internal Medicine; Visit Provider Nurse Practitioner Family | DX: M79.7 Fibromyalgia (principal); M35.9 Systemic involvement of connective tissue, unspecified; M75.81 Other shoulder lesions, right shoulder; M25.571 Pain in right ankle and joints of right foot; M25.572 Pain in left ankle and joints of left foot; M25.471 Effusion, right ankle; M25.472 Effusion, left ankle; M25.474 Effusion, right foot; M25.475 Effusion, left foot; Z79.60 Long term (current) use of unspecified immunomodulators and immunosuppressants | CPT/HCPCS: 99212 ==

== ENCOUNTER 2023-07-03 10:13 | Outpatient (REF) | payer OTHER, SELFPAY ==
[2023-07-03 11:00] LABS: Alanine Aminotransferase 17 U/L (0-31); Albumin Level 4.3 g/dL (3.5-5.0); Alkaline Phosphatase 89 U/L (39-117); Anion Gap 13 (12-20); Aspartate Amino Transferase 16 U/L (5-31); Bilirubin Total 0.5 mg/dL (0.0-1.0); Blood Urea Nitrogen 14 mg/dL (9-16); Calcium 9.6 mg/dL (8.4-10.2); Carbon Dioxide 27 mmol/L (22-29); Chloride 107 mmol/L (96-108); Estimated Glomerular Filt Rate > 60; Glucose Random 114 mg/dL (60-115); Potassium 3.8 mmol/L (3.3-5.1); Sodium 143 mmol/L (135-145); Total Protein 7.6 g/dL (6.5-8.0); Uric Acid 5.2 mg/dL (2.4-5.7)
[2023-07-03 13:37] LABS: Appearance Urine Clear; Color Urine Yellow; Glucose Urine UA Negative (Negative); Leukocyte Esterase Urine Trace (Negative); Nitrite Urine Negative (Negative); PH 5.5 (5.0-9.0); Specific Gravity - Urine 1.025 (1.005-1.025); UMIC TRIGGER UA YES; Urine Blood Negative (Negative); Urine Ketones Negative (Negative); Urine Protein Negative (Neg-Trace)
[2023-07-03 13:44] LABS: Bacteria Urine 2+ (None Seen); Hyaline Casts Urine 0-2 /LPF (0-2); RBC Urine 0-2 /HPF (0-2); WBC Urine 0-5 /HPF (0-5)
[2023-07-04 13:49] LABS: Anti DNA DS Antibody <1 IU/mL
[2023-07-04 18:13] LABS: Complement C3 153 mg/dL (83-193)
[2023-07-08 03:53] LABS: IgA 141 mg/dL (47-310); IgG 1339 mg/dL (600-1640); IgM 121 mg/dL (50-300)
[2023-07-10 04:34] LABS: Aldolase 4.5 U/L (<=8.1)
[2023-07-13 14:04] LABS: Anti Nuclear Antibody Pattern Nuclear, Speckled; Anti Nuclear Antibody Screen POSITIVE (NEGATIVE); Anti Nuclear Antibody Titer 1:40 titer
== END 2023-07-03 10:14 | disposition home or self-care (01) ==
LOC: HO.10HDL 10:13
PROVIDERS: Visit Provider Nurse Practitioner Family
DX: M35.9 Systemic involvement of connective tissue, unspecified (principal); M79.601 Pain in right arm; Z79.60 Long term (current) use of unspecified immunomodulators and immunosuppressants
CPT/HCPCS: 36415; 80053; 81001; 82085; 82550; 82784; 84550; 86038; 86039; 86160; 86225

== ENCOUNTER 2023-08-01 14:19 | Outpatient (REF) | payer OTHER, SELFPAY ==
--- NOTE | ~2023-08-01 | MM_ITS ---
EXAMINATION: MM SCREENING DIGITAL BREAST TOMOSYNTHESIS, BILATERAL CLINICAL INFORMATION: Screening. Asymptomatic. COMPARISON: Mammography: 07/26/2022, 07/12/2021, 07/03/2020, 06/28/2019 TECHNIQUE: Digital breast tomosynthesis is performed in both the craniocaudal and mediolateral oblique views along with computer-aided detection (CAD). Synthesized 2D images are generated from the tomosynthesis. FINDINGS: The breasts are heterogeneously dense, which may obscure small masses (ACR BI-RADS breast composition Category c). There are no suspicious masses, suspicious grouped calcifications, or areas of architectural distortion in either breast. The parenchymal pattern is stable from prior exams. No skin or axillary abnormalities. MM/MM tomosynthesis screening BI IMPRESSION: No mammographic evidence of malignancy. ASSESSMENT: BI-RADS BI-RADS 1 - Negative RECOMMENDATION: Routine annual mammography screening. 1 year F/U This examination should not preclude the clinical evaluation of a suspicious palpable abnormality. This patient's information was entered into a reminder system with a target due date for their next mammogram.
== END 2023-08-01 14:20 | disposition home or self-care (01) ==
LOC: HO.MAMMO 14:19
PROVIDERS: PCP Internal Medicine; Visit Provider Internal Medicine
DX: Z12.31 Encounter for screening mammogram for malignant neoplasm of breast (principal)
CPT/HCPCS: 77063; 77067

== ENCOUNTER → 2023-08-01 14:30 | Outpatient (BNV) | payer OTHER, SELFPAY | PROVIDERS: PCP Internal Medicine; Visit Provider Radiology Diagnostic Radiology | DX: Z12.31 Encounter for screening mammogram for malignant neoplasm of breast (principal) | CPT/HCPCS: 77063; 77067 ==

== ENCOUNTER 2023-10-23 15:16 | Outpatient (AMB) | payer OTHER, SELFPAY ==
--- NOTE | 2023-10-23 15:27 | A.OFFVIS_ITS ---
Vital Signs 10/23/23 15:28 Height 5 ft 4 in Weight 190 lb 7.67 oz BMI 32.7 BP 122/64 Blood Pressure Location Rt brachial Position Sitting Pulse 69 Pulse Source Pulse Oximeter Pulse Oximetry (%) 96 Oxygen Delivery Method Room Air Intake Visit Reasons: UCTD, ANkle Swelling - 40 minute visit Intake Note: Patient last seen 07/03/23 by Arabella, presents today for follow up and test results. Reports lots of pain, states FM is really bad especially in the mornings. Poison Information Specialist Required: No Accompanied by: Self / Same As Patient Allergies aspirin [Aspirin] Allergy (Mild, Verified 10/23/23 15:36) GI UPSET, upset stomach, stomach upset HPI Comments Details: Ms. Violet Pennington yoF returns today for follow-up of undifferentiated connective tissue disease and fibromyalgia on HCQ 200 mg QD. She is recovering from a respiratory virus with a residual cough. She reports she does not feel well. She was seen by and was given a nasal spray and informed that the illness will run its course. She also had a bout of PNU back in in February 2023. 07/03/2023 Ms. Violet Pennington yoF returns today for follow-up of undifferentiated connective tissue disease and fibromyalgia. Patient reports that some years ago she was told that, based on her labs, she could develop lupus and so she was put on hydroxychloroquine to prevent the lupus from developing. Upon inquiry she endorses dry mouth, gets rash on her cheeks when the time is very very hot . She has herpes outbreaks. Her main concerns today is her upper arm muscle pain that may be connected to her shoulder pain. The pain is mostly felt on the right side. It prevents her from combing her hair as her upper arm gets tired and painful to do so. She also has right swollen ankle and right leg weakness. She says that her hips are very tender and interrupts her sleep. She describes that her hands are stiff in the mornings but they do get better in about 10 minutes with movements and stretches. Patient also describes pain around her mid torso that is felt with deep breathing and is also made worse when she makes sudden movement. She was given muscle relaxer by her PCP but that has not been effective. She did see the eye doctor in June 2023 and had no concerns. Prior Visit 12/2022 The patient presents with right shoulder pain. She says she overused that shoulder shoveling some snow back in June. She also is on hydroxychloroquine 200 mg daily for what has been labeled as undifferentiated connective tissue disease. She has been in some physical therapy for the shoulder but that has only helped slightly. She says upper arm and anterior shoulder pain occurs with lifting the arm up to the horizontal or overhead and at night when she lies on the shoulder. There has been no redness or swelling. Her other more overall pains continue from fibromyalgia. She seems comfortable otherwise outside the shoulder pain. She takes some gabapentin that she takes 800 mg at night. She is also on medicines for her psychiatric disorder. [facility] Medical History (Updated 07/03/23 @ 10:00 by GRETCHEN Gatica) Bilateral swelling of feet and ankles Bilateral ankle joint pain Pain in right arm Long-term use of immunosuppressant medication Hx of bronchitis Migraine Depression IBS (irritable bowel syndrome) Fibromyalgia Undifferentiated connective tissue disease Surgical History Hx of colonoscopy History of endometrial ablation History of History of bilateral ligation of fallopian tubes Family History Mother HTN (hypertension) Brother Diabetes Father Heart attack Other Mental health disorder Social History Household Members: None Housing: House Are you a primary ocular care technician to a significant other at home: No Do you presently have visiting nurse or other home services: No Alcohol intake: current Alcohol intake frequency: does not drink Alcohol type: wine Patient Tobacco Use Status: Never used Tobacco e-Cigarette/Vaping Use: Never Used Second Hand Smoke Exposure: No service: No Current occupational status: employed Current occupation: paraprofessional Cognitive needs: No Hearing needs: No Vision needs: Yes Female Reproductive History Menstrual Age of Menarche: 13 Review of Systems Const All systems reviewed & are unremarkable except as noted in HPI and below Physical Exam Vital Signs: Last Vital Signs Pulse 69 10/23/23 15:28 BP 122/64 10/23/23 15:28 Pulse Ox 96 10/23/23 15:28 Oxygen Delivery Method Room Air 10/23/23 15:28 BMI result Body Mass Index 32.7 APPEARANCE: Patient in no acute distress, groomed, nourished EARS:? External ear normal NOSE/SINUS:? Airflow through both nares, no nasal discharge, no bleeding THROAT:? Oral mucosa moist, no ulcerations NECK:? No thyromegaly or masses, no adenopathy, trachea midline. HEART:? Regulrar rhythm, S1-S2 heard, no murmurs, rubs or gallops. LUNG:? Clear to percussion and auscultation ABD:? Normal bowel sounds, no organomegaly, masses or tenderness. EXTREMITIES:? No edema, no calf tenderness, normal peripheral pulses. SKIN:? No inflammatory or neoplastic lesions.? Normal color and turgor JOINT EXAM: Cervical Spine:.? Mild pain with lateral flexion at 15 degrees with extremes of normal rotation.? Some cervical muscle tenderness. Thoracic Spine:.? No scoliosis.? No tenderness on palpation. Lumbar Spine:.? Alignment normal.? Full range of motion with mild pain at the extremes.? Slight paraspinal muscle tenderness. Chest Wall:.? No tenderness, swelling, increased warmth or erythema. Hands:.? Normal pain-free range of motion with mild tenderness across the PIP joints but no the swelling, increased warmth or erythema. Able to make a full fist and has a good bridge engineer strength. Wrists:.? Normal pain-free range of motion without tenderness, swelling, increased warmth or erythema. Elbows:. Normal pain-free range of motion without tenderness, swelling, increased warmth or erythema. Shoulders:.? Right:? Mild to moderate pain with abduction at 110 degrees or with attempts at more than 15 degrees of internal or external rotation.? Pain is worse as we try to push the shoulder passively to 180 degrees of abduction.? There is similar pain with anterior flexion at 90 degrees.? There is [id number] anterior, subacromial and posterior tenderness.? There is no swelling, adenopathy or weakness.? Left:? Full range of motion with slight tenderness across the trapezial area.? There is minimal anterior and posterior tenderness without adenopathy, weakness, swelling, increased warmth or erythema. Tenderness to upper arm muscles on palpation, right greater than left. Hips:.? Full range of motion without pain. Hip bursa:? No tenderness. Knees:.?? Normal pain-free range of motion with mild patellofemoral crepitus.? There is mild medial compartment tenderness without effusion, soft tissue swelling, increased warmth or erythema.? There is no effusion or crepitation Ankles:.? Normal pain-free range of motion without tenderness, swelling, increased warmth or erythema. Feet:.? Normal pain-free range of motion without tenderness, increased warmth or erythema. Tender points: mild tenderness to digital palpation at the occiput, trapezius, second rib, lateral epicondyle, knees, greater trochanter and gluteal area bilaterally. Results Reviewed Results Reviewed: Laboratory Tests 07/03/23 10:15 Creatinine 0.79 AST 16 ALT 17 IgG Total 1339 IgA Total 141 IgM 121 ESTER Titer 1:40 H Complement C3 153 Complement C4 25 Chest x-ray 02/14/2023. TECHNIQUE: Multidetector volumetric CT imaging of the chest was obtained after the administration of 65 mL of Omnipaque 350 intravenous contrast without immediate adverse reactions. Axial MIP volume rendering provided. Sagittal and coronal reformatted images were obtained. This CT examination was performed using dose optimization techniques as appropriate, variously including the following: *Automated exposure control *Adjustment of mA and/or kV according to patient size (this includes techniques or standardized protocols for targeted exams where dose is matched to indication/reason for exam; i.e. extremities or head) *Use of iterative reconstruction technique DLP: 120 mGy-cm FINDINGS: LUNGS: Scarring or atelectasis in the medial segment of the right middle lobe may be postinfectious/inflammatory. No follow-up imaging is recommended. No suspicious consolidation or pulmonary nodule. The opacity on recent chest x-ray corresponds to a right lateral osteophyte at at T7-T8. MEDIASTINUM: Normal caliber thoracic aorta and main pulmonary artery. No pericardial effusion. No adenopathy. Small hiatal hernia. PLEURA: There is no pleural effusion. No pleural mass or thickening. AXILLA: No lymphadenopathy. UPPER ABDOMEN: Low-attenuation liver consistent with steatosis. Cholecystectomy. Spleen appears normal in size were visualized. No adrenal mass. OSSEOUS STRUCTURES: Right lateral osteophytes at T7-T8 and T9-T10. No suspicious osseous lesions. CT/CT chest w IV con IMPRESSION: Opacity on recent chest x-ray corresponds to right lateral osteophytes at T7-T8. No suspicious pulmonary findings. Fleischner guidelines were followed. Laboratory Tests 10/23/23 16:21 WBC 5.2 RBC 4.52 Hgb 12.9 Hct 38.8 Neut % (Auto) 41.9 L Lymph % (Auto) 44.2 H ESR 9 BUN 13 Creatinine 0.74 Estimated GFR > 60 AST 18 ALT 19 Total Creatine Kinase 98 C-Reactive Protein 0.68 H Complement C3 117 Complement C4 16 Assessment & Plan Assessment & Plan (1) Fibromyalgia: Code(s): M79.7 - Fibromyalgia Category: Medical (2) Undifferentiated connective tissue disease: Comment: 2019: ESTER 1:80, speckled. WBC low. C3 and C4 low. Anti DNA, anti BOGDAN, Sjogren's antibodies all negative. The hydroxychloroquine since 2019. Eye exam ok 07/04 Code(s): M35.9 - Systemic involvement of connective tissue, unspecified Category: Medical (3) Right rotator cuff tendonitis: Code(s): M75.81 - Other shoulder lesions, right shoulder Category: Medical (4) Bilateral ankle joint pain: Code(s): M25.571 - Pain in right ankle and joints of right foot; M25.572 - Pain in left ankle and joints of left foot Category: Medical (5) Bilateral swelling of feet and ankles: Code(s): M25.471 - Effusion, right ankle; M25.472 - Effusion, left ankle; M25.474 - Effusion, right foot; M25.475 - Effusion, left foot Category: Medical (6) Long-term use of immunosuppressant medication: Code(s): 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 Patient does not have respiratory or cardiac symptoms. I think the mid torso pain is muscle spasms and not cardiopulmonary related. Her updated ESTER is 1:40 and complements were within normal range. She does endorse symptoms such as dry eyes and mouth, past hair loss, and sun-sensitive rash, and reported abnormal nerve sensations in limbs. We will continue the plaquenil 200mg as she reports feeling better taking it. She had stopped taking for 2 months and felt more tired and achy off Plaquenil. I did discuss with patient that dry mouth can also be because of her mood medications but I also suggest measures she can take to manage the dry mouth- lozenges, biotine toothpaste, increase hydration. #Right Ankle Pain and swelling: Swelling has improved but patient did not obtain xrays as ordered at last visit. #Right Shoulder/Arm Pain: Injections in the past. Not improved with Prednisone. Encouraged to continue PT exercises at home. #Long Time Use: Ok to continue Plaquenil per eye MD (06/2023). Will recheck labs 1 week before next visit. 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 and immunosuppressants Creatine Kinase Total 10/23/23 M35.9 - Systemic involvement of connective tissue, unspecified, Z79.60 - 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
[2023-10-23 15:28] VITALS: BP 122/64; PULSE 69; O2SAT 96; BMI 32.7
== END 2023-10-23 15:52 | disposition home or self-care (01) ==
PROVIDERS: PCP Internal Medicine; Visit Provider Nurse Practitioner Family
DX: M79.7 Fibromyalgia (principal); M35.89 Other specified systemic involvement of connective tissue; M75.81 Other shoulder lesions, right shoulder; M25.571 Pain in right ankle and joints of right foot; M25.572 Pain in left ankle and joints of left foot; M25.471 Effusion, right ankle; M25.472 Effusion, left ankle; M25.474 Effusion, right foot; M25.475 Effusion, left foot; Z79.60 Long term (current) use of unspecified immunomodulators and immunosuppressants
CPT/HCPCS: 99214; G2211

== ENCOUNTER 2023-10-23 15:16 | Outpatient (REF) | payer OTHER, SELFPAY ==
[2023-10-23 16:23] LABS: MANUAL DIFF FLAG NO
[2023-10-23 17:10] LABS: Basophils Percent Auto 0.6 % (0-2); Eosinophils Absolute Auto 0.1 X10*3/uL (0.0-0.4); Eosinophils Percent Auto 2.1 % (0-4); Hematocrit 38.8 % (37.0-47.0); Hemoglobin 12.9 g/dl (12.0-16.0); Imm Gran Abs Auto 0.01 X10*3/uL (0.00-0.03); Imm Gran Pct Auto 0.2 % (0.0-0.4); Lymphocytes Absolute Auto 2.3 X10*3/uL (1.2-4.9); Lymphocytes Percent Auto 44.2 % (20-40); Mean Corpuscular HGB Conc 33.2 g/dl (31.0-35.0); Mean Corpuscular Hemoglobin 28.5 pg (27.0-33.0); Mean Corpuscular Volume 85.8 fL (80.0-98.0); Monocytes Absolute Auto 0.6 X10*3/uL (0.1-1.2); Neutrophils Absolute Auto 2.2 x10*3/uL (2.0-8.3); Neutrophils Percent Auto 41.9 % (45-73); Platelet Count 259 X10*3/uL (160-400); Red Blood Count 4.52 X10*6/uL (4.20-5.50); Red Cell Distribution Width 14.8 % (11.0-16.0); White Blood Count 5.2 X10*3/uL (4.8-10.8)
[2023-10-23 17:43] LABS: Alanine Aminotransferase 19 U/L (0-31); Albumin Level 4.3 g/dL (3.5-5.0); Alkaline Phosphatase 87 U/L (39-117); Anion Gap 10 (12-20); Aspartate Amino Transferase 18 U/L (5-31); Bilirubin Total 0.4 mg/dL (0.0-1.0); Blood Urea Nitrogen 13 mg/dL (9-16); C Reactive Protein 0.68 mg/dL (< or = 0.50); Calcium 9.2 mg/dL (8.4-10.2); Carbon Dioxide 28 mmol/L (22-29); Chloride 106 mmol/L (96-108); Estimated Glomerular Filt Rate > 60; Glucose Random 102 mg/dL (60-115); Potassium 3.4 mmol/L (3.3-5.1); Sodium 141 mmol/L (135-145); Total Protein 7.4 g/dL (6.5-8.0)
[2023-10-23 17:46] LABS: Erythrocyte Sedimentation Rate 9 MM/HR (0-20)
[2023-10-24 12:23] LABS: Complement C3 117 mg/dL (83-193)
[2023-10-24 20:58] LABS: Prot Elec - Albumin 4.3 g/dL (3.8-4.8); Prot Elec - Alpha1 0.3 g/dL (0.2-0.3); Prot Elec - Alpha2 0.7 g/dL (0.5-0.9); Prot Elec - Beta 1 0.4 g/dL (0.4-0.6); Prot Elec - Beta 2 0.3 g/dL (0.2-0.5); Prot Elec - Gamma 1.1 g/dL (0.8-1.7); Prot Elec - Total Protein 7.1 g/dL (6.1-8.1)
[2023-10-27 21:09] LABS: IgA 109 mg/dL (47-310); IgG 1222 mg/dL (600-1640); IgM 88 mg/dL (50-300)
[2023-10-28 20:23] LABS: Antibody to SS-A Antigen <1.0 NEG AI (<1.0 NEG); Antibody to SS-B Antigen <1.0 NEG AI (<1.0 NEG)
== END 2023-10-23 15:17 | disposition home or self-care (01) ==
LOC: HO.LAB 15:16
PROVIDERS: PCP Internal Medicine; Visit Provider Nurse Practitioner Family
DX: M35.9 Systemic involvement of connective tissue, unspecified (principal); M79.7 Fibromyalgia; M75.81 Other shoulder lesions, right shoulder; M25.571 Pain in right ankle and joints of right foot; M25.572 Pain in left ankle and joints of left foot; M25.471 Effusion, right ankle; M25.472 Effusion, left ankle; M25.474 Effusion, right foot; M25.475 Effusion, left foot; Z79.60 Long term (current) use of unspecified immunomodulators and immunosuppressants
CPT/HCPCS: 36415; 80053; 82550; 82784; 84165; 85025; 85652; 86140; 86160; 86235; 86334; 99212

== ENCOUNTER 2023-12-23 12:19 | Outpatient (AMB) | payer OTHER, SELFPAY ==
--- NOTE | 2023-12-23 12:20 | MHC.OFFWIV ---
Intake Vital Signs 12/23/23 12:21 12/23/23 13:02 12/23/23 13:03 12/23/23 13:03 Height 5 ft 4 in Weight 183 lb BMI 31.4 BP 142/88 H 130/100 H 140/90 H 150/100 H Blood Pressure Location Lt brachial Rt brachial Rt brachial Rt brachial Position Sitting Supine Sitting Standing Pulse 60 56 55 55 Pulse Source Pulse Oximeter Pulse Oximeter Pulse Oximeter Pulse Oximeter Temp 98.7 F Temp Source Oral Pulse Oximetry (%) 98 98 100 100 Oxygen Delivery Method Room Air Room Air Room Air Room Air Intake Visit Reasons: EP- Dizziness started last friday, nausea Intake Note: PT C/O dizziness and nausea. Started 8 days ago Patient Tobacco Use Status: Never used Tobacco Allergies aspirin [Aspirin] Allergy (Mild, Verified 12/23/23 12:21) GI UPSET, upset stomach, stomach upset Do you need a note to return to daycare/school/sports/work: No HPI HPI Comments History of Present Illness Details Patient is a 58-year-old female complaining of dizziness for approximately 10 days. She states she flew to [place] for 2 weeks and while she was there, she started getting dizzy. She states her dizziness felt like the room was spinning and is worse when she tried to sit up and stand up. She states she had several episodes of vomiting for 3 days in a row and then she asked her brother to take her to the emergency room in [place]. While she was there they did labs which she has with her today they did a CBC and a chemistry panel and everything was within normal limits. No EKG was noted on the paperwork she showed me. So they discharged her on meclizine and Zofran which she has been taking since then. She states she has not vomited since she started taking the medications but she still feels very dizzy when she does not take the meclizine. She says the dizziness is worse when she looks left. She denies any chest pain, feeling of warmth, heart palpitations, fevers, ear pain, blurry vision or changes in her hearing. She flew back from [place] 4 days ago. [facility] Medical History (Updated 12/23/23 @ 13:09 by Vijaya Daley PA-C) Bilateral swelling of feet and ankles Bilateral ankle joint pain Pain in right arm Long-term use of immunosuppressant medication Hx of bronchitis Migraine Depression IBS (irritable bowel syndrome) Fibromyalgia Undifferentiated connective tissue disease Surgical History Hx of colonoscopy History of endometrial ablation History of History of bilateral ligation of fallopian tubes Family History Mother HTN (hypertension) Brother Diabetes Father Heart attack Other Mental health disorder Social History Household Members: None Housing: House Are you a primary housekeeper caregiver to a significant other at home: No Do you presently have visiting nurse or other home services: No Alcohol intake: current Alcohol intake frequency: does not drink Alcohol type: wine Patient Tobacco Use Status: Never used Tobacco e-Cigarette/Vaping Use: Never Used Second Hand Smoke Exposure: No service: No Current occupational status: employed Current occupation: paraprofessional Cognitive needs: No Hearing needs: No Vision needs: Yes Female Reproductive History Menstrual Age of Menarche: 13 Review of Systems Const All systems reviewed & are unremarkable except as noted in HPI and below Physical Exam Vital Signs: Last Vital Signs Temp 98.7 F 12/23/23 12:21 Pulse 60 12/23/23 12:21 BP 142/88 H 12/23/23 12:21 Pulse Ox 98 12/23/23 12:21 Oxygen Delivery Method Room Air 12/23/23 12:21 BMI result Body Mass Index 31.4 Const General: cooperative, healthy appearing, comfortable, no acute distress and well developed Orientation/consciousness: patient oriented x3 Limitations: no limitations HEENT Head: Yes normal to inspection Ears: hearing grossly normal bilaterally, external ears normal, TM's normal bilaterally and mastoids normal General nose exam: Normal external nose present Face and sinus: Yes normal facial exam Eyes General: appearance normal, both eyes and all related structures Pupils: Equal, round and reactive pupils present EOM: EOMs intact bilaterally and No Nystagmus present Neck Neck: Yes normal visual inspection and Yes full ROM Resp Effort & Inspection: normal respiratory effort and able to speak in complete sentences Auscultation: clear to auscultation bilaterally Cardio Rate: regular rate Rhythm: regular rhythm Heart sounds: normal S1 and S2 Skin General skin exam: no rashes or lesions noted Neuro General: patient oriented x3 Cranial nerves: Yes Equal, round and reactive pupils present and No Nystagmus present Extrem General: Yes normal to inspection Office Procedures EKG [id number], Complete Assessment & Plan Assessment & Plan (1) Acute electrocardiogram changes: Code(s): R94.31 - Abnormal electrocardiogram [ECG] [EKG] Plan: EKG showing ST depression in 2 3 AVF as well as V3 through V6 as well as bradycardia at 55BPM. Last EKG from [facility] shows no acute ST changes in July of 2023. We will send patient to [facility] for further workup via ambulance. (2) Dizziness: Code(s): R42 - Dizziness and giddiness Plan: Orthostatics not reflective of orthostatic hypotension. PE revealed dizziness is worse when patient looks left, no nystagmus, she is going to the emergency department for further workup. Plan See above Coding Level of Care Code Est Pt Level 5 (33469) Diagnoses Acute electrocardiogram changes R94.31 Dizziness R42 CPT Codes EKG - CPT: 30852-[id number], Complete ([id number])
[2023-12-23 12:21] VITALS: BP 142/88; PULSE 60; TEMP 37.1; O2SAT 98; BMI 31.4
[2023-12-23 13:02] VITALS: BP 130/100; PULSE 56; O2SAT 98
[2023-12-23 13:03] VITALS: BP 140/90; BP 150/100; PULSE 55; O2SAT 100
== END 2023-12-23 13:57 | disposition home or self-care (01) ==
PROVIDERS: PCP Internal Medicine; Visit Provider Physician Assistant
DX: R94.31 Abnormal electrocardiogram [ECG] [EKG] (principal); R42 Dizziness and giddiness
CPT/HCPCS: 93000; 99215

== ENCOUNTER 2024-01-02 12:52 | Outpatient (AMB) | payer OTHER, SELFPAY ==
[2024-01-02 12:53] VITALS: BP 124/66; BMI 31.6
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
== END 2024-01-02 13:26 | disposition home or self-care (01) ==
PROVIDERS: PCP Internal Medicine; Visit Provider Internal Medicine
DX: H81.12 Benign paroxysmal vertigo, left ear (principal); Z09 Encounter for follow-up examination after completed treatment for conditions other than malignant neoplasm; R94.31 Abnormal electrocardiogram [ECG] [EKG]; R90.89 Other abnormal findings on diagnostic imaging of central nervous system
CPT/HCPCS: 99215

== ENCOUNTER 2024-01-14 14:50 | Outpatient (AMB) | payer OTHER, SELFPAY ==
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
[2024-01-14 14:56] VITALS: BP 126/78; PULSE 67; O2SAT 98; BMI 31.8
== END 2024-01-14 15:31 | disposition home or self-care (01) ==
PROVIDERS: PCP Internal Medicine; Visit Provider Internal Medicine
DX: Z00.00 Encounter for general adult medical examination without abnormal findings (principal)
CPT/HCPCS: 99396

== ENCOUNTER 2024-02-06 13:58 | Outpatient (RCR) | payer OTHER, SELFPAY ==
[2024-02-06 14:23] VITALS: BP 128/78; PULSE 76; O2SAT 98
--- NOTE | 2024-02-06 15:02 | MHC.PT.EP ---
[facility] [place] Office [place] Office [place] Office [address] Aaron Khalil [address] [phone] F: [phone] F: [phone] F: [phone] F: [phone] Physical Therapy Plan of Care Date of Evaluation: Date of Surgery: Diagnosis: BPPV Assessment: 58 y/o female referred to PT with BPPV. Reports room-spinning dizziness when looking to the left, getting up too quickly, and positional changes that last 5-10 seconds (initially it was constant for 2 days with n/v). Examination shows normal oculomotor tests, (-) VBI (dizzy to the left, but no other sx), WFL static balance, and positive for L PC BPPV (nystagmus and sx). Performed Geovani maneuver x1 and pt reports feeling better. Declined re-test at this time. Educated pt on re-calibration period and will re-assess L [place]-Hallpike next visit as well as horizontal canals. Frequency and Duration: The patient will be seen 2x/week for 4 weesk Short Term Goals: Re-assess L Hallpike and ROll test Director [employer] Goals: Pt will be (-) for nystagmus of reports of vertigo in all diagnostic directions B to resolutions of BPPV in 4 weeks Tolerate position changes without complaints vertigo to improve safety and return to pre-onset level Pt to be able to functionally move in all planes without provocation of dizziness and return to PLOF in 4 weeks Pt to be educated on sx and indications to return to therapy when needed in 4 weeks Treatment Plan: Modalities to reduce pain, spasms and effusion. Manual therapy to restore motion and function. Therapeutic exercise to improve strength and flexibility. Neuromuscular re-education for posture and balance. Therapeutic activities to return to functional activities of daily living. Electronically signed by: Nancy Odonnell PT Please sign and return to therapist. Thank you for your referral.
--- NOTE | 2024-03-22 14:21 | MHC.PT.DC ---
[facility] [place] Office [place] Office [place] Office [address] Aaron Khalil [address] [phone] F: [phone] F: [phone] F: [phone] F: [phone] Physical Therapy Discharge Report Diagnosis: BPPV Date of Surgery: Date of Evaluation: 02/06/24 Date of Discharge: 03/22/24 Treatments to Date: 1 Cancellations to Date: 1 No Shows to Date: 1 Discharge Status: Discharge Summary: She came in for initial consult and was positive for L posterior canal BPPV. She was treated with Geovani Camargo but declined re-test. She did not come for further f/u and is not d/c. Electronically signed by: Nancy Odonnell PT Please sign and return to therapist. Thank you for your referral.
== END 2024-03-22 14:21 | disposition home or self-care (01) ==
LOC: HO.PTCHIC 13:58
PROVIDERS: PCP Internal Medicine; Visit Provider Internal Medicine
DX: H81.10 Benign paroxysmal vertigo, unspecified ear (principal)
CPT/HCPCS: 95992; 97162

== ENCOUNTER 2024-05-11 13:56 | Outpatient (AMB) | payer OTHER, SELFPAY ==
[2024-05-11 13:59] VITALS: BP 110/64; PULSE 71; BMI 32.4
--- NOTE | 2024-05-11 13:59 | A.OFFVIS_ITS ---
Vital Signs 05/11/24 13:59 Height 5 ft 4 in Weight 188 lb 7.924 oz BMI 32.4 BP 110/64 Blood Pressure Location Rt brachial Position Sitting Pulse 71 Pulse Source Pulse Oximeter Intake Visit Reasons: FM Intake Note: Patient last seen by Rosalva Bell on 10/23/23. Presents today for FM follow up and test results. Filter Worker Required: No Accompanied by: Self / Same As Patient Allergies aspirin [Aspirin] Allergy (Mild, Verified 05/11/24 14:02) GI UPSET, upset stomach, stomach upset Medication List - Last Reconciled 05/11/24 by Lynsey Lincoln MD fluoxetine 40 mg PO DAILY gabapentin 800 mg PO BEDTIME hydroxychloroquine 200 mg PO DAILY hydroxyzine pamoate 25 mg PO TID PRN lamotrigine 200 mg PO DAILY mirtazapine 30 mg PO BEDTIME pantoprazole 20 mg PO DAILY quetiapine 200 mg PO BEDTIME HPI Comments Details: Patient is a 59-year-old female with depression, fibromyalgia and undifferentiated connective tissue disease who presents today for follow up. Interval History: Patient last seen 10/23/2023 with Rosalva Bell. At that time patient was complaining of shoulder pain and bilateral ankle pain. No changes made to medication at that time Today patient complains of worsening fibromyalgia pain, dry mouth Shoulder pain has improved. Rheumatologic History: Patient diagnosed with undifferentiated connective tissue disease on a background of positive ESTER, low complements, leukopenia and arthralgias. Has been maintained on Plaquenil monotherapy since 2019 Current Rheumatology Medication(s): Plaquenil 200mg daily Gabapentin 800mg at night [facility] Medical History (Updated 05/11/24 @ 14:48 by Lynsey Lincoln MD) Encounter for long-term (current) use of NSAIDs Bilateral swelling of feet and ankles Bilateral ankle joint pain Pain in right arm Long-term use of immunosuppressant medication Hx of bronchitis Migraine Depression IBS (irritable bowel syndrome) Fibromyalgia Undifferentiated connective tissue disease Surgical History Hx of colonoscopy History of endometrial ablation History of History of bilateral ligation of fallopian tubes Family History Mother HTN (hypertension) Brother Diabetes Father Heart attack Other Mental health disorder Social History Household Members: None Housing: House Are you a primary landcare officer to a significant other at home: No Do you presently have visiting nurse or other home services: No Alcohol intake: current Alcohol intake frequency: does not drink Alcohol type: wine Patient Tobacco Use Status: Never used Tobacco e-Cigarette/Vaping Use: Never Used Second Hand Smoke Exposure: No service: No Current occupational status: employed Current occupation: paraprofessional Cognitive needs: No Hearing needs: No Vision needs: Yes Female Reproductive History Menstrual Age of Menarche: 13 Review of Systems Const Details: Review of Systems Constitutional: Denies fever, chills, weight loss ENT: Denies vision changes, eye pain or eye redness, dental caries, dry mouth GI: Denies nausea, vomiting, diarrhea, abdominal pain, change in BM Pulm: Denies SOB, ROSAS, hemoptysis, wheezing Cards: Denies chest pain, palpitations Skin: Denies Raynaud's, rash, nail changes, photosensitivity, SCHOOL COUNSELLOR: Denies headaches, weakness, paresthesias, recurrent falls MSK: as per HPI All other systems reviewed and are unremarkable except noted above Physical Exam Vital Signs: Last Vital Signs Pulse 71 05/11/24 13:59 BP 110/64 05/11/24 13:59 BMI result Body Mass Index 32.4 Physical Examination CONSTITUITIONAL Patient alert and cooperative. Well appearing and in no apparent painful distress HEENT Conjunctiva and sclera clear. ?Pupils equal round and reactive to light. ?No lymphadenopathy. ? CHEST/RESPIRATORY SYSTEM Normal respiratory effort and able to speak in complete sentences. ?Clear to auscultation bilaterally. ?No crackles, rales, rhonchi, wheezes heard. CARDIAC SYSTEM Regular rate and rhythm. ?S1 and S2 heard no murmurs. ?Radial pulses intact bilaterally MSK Hands: ?Good procurement forester strength bilaterally. No deformities noted. ?No synovitis noted to the MCPs, PIPs or DIPs. ?No tenderness to palpation of these joints. Wrists: ?Full range of motion at the wrists without pain. ?No tenderness to palpation or synovitis noted to the wrists. Elbows: Full range of motion without pain. No tenderness, weakness, swelling, increased warmth or erythema. Shoulders: Full range of motion without pain. No tenderness, weakness, swelling, increased warmth or erythema. Hips: Full range of motion without pain. Hip bursa: No tenderness to palpation Knees: ?Full range of motion. ?No tenderness, swelling, increased warmth or erythema.?No effusion or crepitations Ankles: Full range of motion. ?No tenderness, swelling, increased warmth or erythema.? Feet: ?Negative squeeze test. ?No tenderness to palpation or swelling of the MTPs. Tender points:? Tenderness to palpation of the bilateral trapezius, supraspinatus, greater trochanters, anterior costochondral junctions, bilateral gluteal areas, bilateral suboccipital muscle insertions SKIN Skin intact without rashes. Results Reviewed Results Reviewed: Laboratory Tests 07/03/23 10/23/23 10:15 16:21 WBC 5.2 RBC 4.52 Hgb 12.9 Hct 38.8 Plt Count 259 ESR 9 Sodium 141 Potassium 3.4 Chloride 106 Carbon Dioxide 28 BUN 13 Creatinine 0.74 AST 18 ALT 19 Alkaline Phosphatase 87 C-Reactive Protein 0.68 H PEP Interpretation SEE NOTE ESTER Screen POSITIVE A ESTER Titer 1:40 H SS-A/Ro Antibody <1.0 NEG SS-B/La Antibody <1.0 NEG Double Strand DNA Ab <1 Complement C3 153 117 Complement C4 25 16 Assessment & Plan Assessment & Plan (1) Undifferentiated connective tissue disease: Comment: 2019: ESTER 1:80, speckled. WBC low. C3 and C4 low. Anti DNA, anti BOGDAN, Sjogren's antibodies all negative. The hydroxychloroquine since 2019. Code(s): M35.9 - Systemic involvement of connective tissue, unspecified Category: Medical Plan: #UCTD Patient with undifferentiated connective disease son low positive ESTER, history of hypocomplementemia, history of photosensitive rash polyarthralgias. He has been doing well on Plaquenil 200 mg once a day. Discussed possibly increasing this but patient has noted that when she did in the past she did not feel well No changes to medications at this time Patient had labs done 10/2023. SPEP, complement, dsDNA, CBC and CMP were all within normal limits no need to check again today Plan - Continue plaquenil 200mg daily - Ophthal appt 05/2024 - RTC 6 months - Labs at next visit (2) Fibromyalgia: Code(s): M79.7 - Fibromyalgia Category: Medical Plan: #Fibromyalgia Had a long discussion with patient about her diagnosis of fibromyalgia. Book pamphlet given and encouraged her to do stretches daily. We will trial giving patient Celebrex to see if this helps with her pain throughout the day Plan - Continue gabapentin 800mg at night - Start Celebrex 200mg bid - Encouraged stretching and daily exercise (3) Encounter for long-term (current) use of NSAIDs: Code(s): Z79.1 - long term care pharmacist (current) use of non-steroidal anti-inflammatories (NSAID) Category: Medical Plan: #Long-term Use of NSAIDs Discussed with patient the benefits and risk of NSAIDs for managing the rheumatic condition Benefits include: - Reduced the pain, improved mobility, and increased participation in activities Risks include: - GI upset, potential also worsening or formation (especially in patients > 65 years old) Recommended using proton pump inhibitors (PPIs) for the duration of NSAID use to reduce the risk of gastric ulcers (4) Long-term use of immunosuppressant medication: Code(s): Z79.60 - [facility] (current) use of unspecified immunomodulators and immunosuppressants Category: Medical Plan: #Long-term Use of Hydroxychloroquine Discussed with patient the risks and benefits of hydroxychloroquine in managing the rheumatic condition Benefits include: - Reduced pain, reduce mortality, maintenance of remission and reduction of flares Risks include: - GI upset, skin hyperpigmentation, retinal toxicity (especially after more than 5 years of use), myopathy Advised yearly ophthalmology visits Last ophthalmology visit: 05/2023 Plan I spent 30 minutes reviewing the record and labs, seeing the patient, discussing the treatment plan and documenting in the medical record ? Orders: Orders XR DEXA axial skeleton Today M81.0 - Age-related osteoporosis without current pathological fracture Medications: New celecoxib (Celebrex) 200 mg PO BID 180 caps 1RF M79.7 - Fibromyalgia Refilled gabapentin 800 mg PO BEDTIME 90 tabs 1RF M79.7 - Fibromyalgia Coding Level of Care Code Est Pt Level 4 (28415) Diagnoses Undifferentiated connective tissue disease M35.9 Fibromyalgia M79.7 Encounter for long-term (current) use of NSAIDs Z79.1 Long-term use of immunosuppressant medication Z79.60
== END 2024-05-11 14:37 | disposition home or self-care (01) ==
PROVIDERS: Visit Provider Student in an Organized Health Care Education/Training Program
DX: M35.89 Other specified systemic involvement of connective tissue (principal); M79.7 Fibromyalgia; Z79.1 Long term (current) use of non-steroidal anti-inflammatories (NSAID); Z79.60 Long term (current) use of unspecified immunomodulators and immunosuppressants
CPT/HCPCS: 99214

== ENCOUNTER → 2024-05-11 13:56 | Outpatient (BNVA) | payer OTHER, SELFPAY | PROVIDERS: Visit Provider Student in an Organized Health Care Education/Training Program | DX: M35.9 Systemic involvement of connective tissue, unspecified (principal); M79.7 Fibromyalgia; Z79.1 Long term (current) use of non-steroidal anti-inflammatories (NSAID); Z79.60 Long term (current) use of unspecified immunomodulators and immunosuppressants | CPT/HCPCS: 99212 ==

== ENCOUNTER → 2024-06-03 13:41 | Outpatient (BNVA) | payer OTHER, SELFPAY | PROVIDERS: PCP Internal Medicine; Visit Provider Internal Medicine Cardiovascular Disease | DX: R94.31 Abnormal electrocardiogram [ECG] [EKG] (principal); Z79.60 Long term (current) use of unspecified immunomodulators and immunosuppressants | CPT/HCPCS: 93005; 99202 ==

== ENCOUNTER 2024-08-06 13:55 | Outpatient (REF) | payer OTHER, SELFPAY | END 2024-08-06 13:56 | disposition home or self-care (01) | LOC: HO.MAMMO 13:55 | PROVIDERS: PCP Internal Medicine; Visit Provider Internal Medicine | DX: Z12.31 Encounter for screening mammogram for malignant neoplasm of breast (principal) | CPT/HCPCS: 77063; 77067 ==

== ENCOUNTER → 2024-08-06 14:00 | Outpatient (BNV) | payer OTHER, SELFPAY | PROVIDERS: PCP Internal Medicine; Visit Provider Internal Medicine | DX: Z12.31 Encounter for screening mammogram for malignant neoplasm of breast (principal) | CPT/HCPCS: 77063; 77067 ==

== ENCOUNTER → 2024-08-20 14:50 | Outpatient (REF) | payer OTHER, SELFPAY ==
--- NOTE | 2024-08-20 14:55 | CA_ITS ---
Transthoracic Echocardiogram Patient (Last, First, Middle): Violet Adhikari, Gender: Female Date of : 1965 Age: 59 Procedure Date: 08/20/2024 Procedure Type: Transthoracic Echocardiogram Location: OP Height: 160. cm Weight: 90.72 kg BSA: 1.93 m2 Heart Rate: 64 bpm BP: 122 / 70 mmHg Cras: BETSEY Referring MD: Lev Humphries MD Symptoms: R94.31 - Abnormal electrocardiogram [ECG] [EKG] Study Quality: Fair ECG Rhythm: Arrhythmia Conclusions: - Normal left ventricular cavity size. There is moderately increased left ventricular wall thickness. The left ventricular systolic function is mildly decreased. The visually estimated ejection fraction is between 40-45%. - Normal right ventricular cavity size and systolic function. - There is mild dilatation of the ascending aorta measuring 3.60 cm. Findings Left Ventricle Normal left ventricular cavity size. There is moderately increased left ventricular wall thickness. The left ventricular systolic function is mildly decreased. The visually estimated ejection fraction is between 40-45%. Diastolic function is indeterminate on the basis of available data. Right Ventricle Normal right ventricular cavity size and systolic function. Atria The left atrium is normal in size. The right atrium is normal in size. Aortic Valve Normal aortic valve structure and function. There is no aortic valve stenosis. There is no aortic valve regurgitation. Mitral Valve The mitral valve appears normal. There is trace mitral valve regurgitation. There is no mitral valve stenosis. Pulmonic Valve The pulmonic valve is likely normal. Tricuspid Valve Normal tricuspid valve structure. There is no tricuspid valve regurgitation. Tricuspid regurgitation envelope is inadequate for calculation of right ventricular systolic pressure. Normal right atrial pressure. Great Vessels There is mild dilatation of the ascending aorta measuring 3.60 cm. The visualized portions of the pulmonary artery and branches are normal. Venous The inferior vena cava is normal in size and collapses greater than 50% with inspiration. Pericardium/Pleural There is no evidence of pericardial effusion. Prior Study Comparison No prior study available for comparison. Measurements 2D Linear Measurements IVSd: 1.12 0.6-0.9/0.6-1.0 cm LVIDd: 4.71 3.9-5.3/4.2-5.9 cm LVIDd Index: 2.44 2.4-3.2/2.2-3.1 cm/m2 LVIDs: 4.04 2.0-3.6 cm LVPWd: 1.30 0.7-1.1 cm LA Diam: 3.70 2.7-3.8/3.0-4.0 cm LAIDs Index: 1.92 1.5-2.3 cm/m2 LV Mass: 268.30 67-162/88-224 g LV Mass Index: 139.02 43-95/49-115 g/m2 LVOT Diam: 2.40 3.0+(-)1.3 cm 2D Systolic Function EF 4C: 46.50 >55% EF 2C: 51.50 >55% EF BiP: 47.50 >55% Mitral Valve MV Pk E: 0.83 MV PK A: 0.75 MV Decel Time: 188.00 E/A: 1.10 E'Lateral: 5.44 E'Medial: 5.00 E/E' Med: 16.60 E/E' Lat: 15.20 PHT: 55.00 MVA PHT: 4.00 Decel [place]: 4.42 Aortic Valve AoV Pk Solis: 1.37 AoV Mn Solis: 0.98 AoV VTI: 0.31 AoV Pk Grad: 8.00 Aov Mn Grad: 4.00 LILI Cont.VTI: 2.99 LVOT LVOT Pk Solis: 0.91 LVOT Mn Solis: 0.67 LVOT VTI: 0.21 LVOT Pk Grad: 3.00 LVOT Mn Grad: 2.00 LVOT Diam: 2.40 LVOT Area: 4.52 Diastolic Function MV Pk E: 0.83 MV Pk A: 0.75 E/A: 1.10 E'Medial: 5.00 E/E' Med: 16.60 E' Laterial: 5.44 E/E' Lat: 15.20 Right Ventricle TAPSE (mm): 21.30 TVS' Solis: 12.80 Tricuspid Valve RA Press: 3.00 Great Vessels Aorta Sinus of Valsalva: 3.00 2.0-3.5 cm Ao Asc: 3.60 2.1-3.4 cm Ao Arch: 2.90 Pulmonary Valve PV Pk Solis: 0.89 Peak PV Grad: 3.00 Updated in Other Vendor System with Status of Final Wes Lopes MD electronically signed on 08/22/2024 9:55:04 PM with status of Final
--- OUTSIDE RECORDS SUMMARY | 2024-08-20 15:00 | XMS_ITS ---
Author Organization [facility] Address [address] [place] [id number] Care Team Providers Care Stretcher Leveler Operator Name Role Phone Sarath ADAMSON, La Primary Care Provider Sam Waldron Jr, Tha Bey [phone] REASON FOR VISIT screening Problems Problem Type SNOMED Code ICD Code Onset Dates Problem Status W/U Status Risk Notes Problem History of polyp of colon (situation) (769810462) Personal history of colonic polyps (Z86.010) Active confirmed Encounters Encounter Location Date Provider Diagnosis [facility] [place] [facility] [address] [place] [phone] 03/07/2023 Tha Waldron Jr Encounter for screening colonoscopy Z12.11 and Personal history of colonic polyps Z86.010 Assessments Encounter Date Diagnosis (ICD Code) Assessment Notes Treatment Notes Treatment Clinical Notes Section Notes 03/07/2023 Encounter for screening colonoscopy (ICD-10 - Z12.11) 03/07/2023 Personal history of colonic polyps (ICD-10 - Z86.010) Plan Of Treatment No Information Progress Notes * ANGELLA TERRYLUCIANODOB: [birth year] (59 yo F)Acc No.[id number]:03/07/2023 COLON WITH MAC Patient:?ANGELLA TERRYRED Provider:?Tha Waldron MD :1965???Age:57 Y???Sex:Female D ate:03/07/2023 Address:[address] [place], [place] [phone] Pcp:La Clemens MD Subjective: * Chief Complaints: * ???1. Screening. * Medical History:? Objective: * Vitals:? Assessment: * Assessment: 1.?Encounter for screening c olonoscopy - Z12.11 (Primary)???2.?Personal history of colonic polyps - Z86.010??? Plan: * Treatment: * Procedure Codes:?90710 DIAGN OSTIC COLONOSCOPY * * The named appointment provid er may or may not be the originator of this progress note, and it is not deemed complete until electronically signed by the appointment provider. Sign off status: Pending * Provider:?Tha Waldron MD Date:?1 Generated for Julisa bird/Shailesh/Yonismitting on:?08/20/2024 03:00 PM EDT
--- OUTSIDE RECORDS SUMMARY | 2024-08-20 15:00 | XMS_ITS | Patient Health Record ---
Author Organization [facility] Address [address] [place] [address] Care Team Providers Care Outfitter [place] Name Role Phone Sarath ADAMSON, [facility] Primary Care Provider Tha Jenkins Jr Unavailable [phone] Allergies Allergen (clinical drug ingredient) Drug/Non Drug Allergy documented on EMR Reaction Allergy Type Onset Date Status Aspir-81 stomach upset Drug Allergy Act noelle Reason For Referral No Information Medications Medication SIG (Take, Route, Frequency, Duration) Notes Start Date End Date Status Linzess 72 MCG TAKE 1 CAPSULE DAILY 30 MINUTES BEFORE THE FIRST MAIN MEAL OF THE DAY ON EMPTY STOMACH FOR 30 DAYS for 30 Active Fluoxetine Active QUEtiapine Fumarate Active LORazepam Active Gabapentin Active Hydroxychloroquine Sulfate 2 00 MG 2 TABLETS ORALLY ONCE A DAY Active MiraLax (colon prep) 17 GM/SCOOP mixed with Gatorade or Crystal Light Orally begin at 5:00 p.m. the day before the procedure for 1 day 01/16/2023 Active hydrOXYzine HCl Acti ve Mirtazapine Active SEROquel Active lamoTRIgine Active Immunizations Vaccine Route Administration Date Status Comme nts Influenza Unknown 02/09/2021 Administered Social History Tobacco Use: Social History Observation Description Date Details (start date - stop date) Never Smoker NA - NA Tobacco Use/Smoking Question Answer Notes Patient is a nonsmoker Alcohol Screen Question Answer Notes Did you have a drink containing alcohol in the p ast year? No Points 0 Interpretation Negative Problems Problem Type SNOMED Code ICD Code Onset Dates Problem Status W/U Status Risk Notes Problem [id number] Colon cancer screening (Z12.11) Active confirmed Problem History of polyp of colon (situation) (866405397) Personal history of colonic polyps (Z86.010) Active confirmed Problem 28127689 Slow transit constipation (K59.01) Active confirmed Problem [id number] Irritable bowel syndrome with constipation (K58.1) Active confirmed Plan Of Treatment Future Test Test Name Order Date COLONOSCOPY 11/19/2017 COLONOSCOPY 01/16/2023 Insurance Providers Payer Name Payer Address Payer Phone Subscriber Number Group Number Insured Name Patient Relationship to Insured Coverage Start Date Coverage End Date [facility] [address] [address] [place], [place] [id number] VICENTE TERRY Self - patient is the insured Medical (General) History Medical History History ICD Code fibromyalgia endometriosis anxiety/depression mood swings insomnia Irritable bowel syndrome with constipati on Colonoscopy 02/26, tubular adenoma, five -year followup 03/03 Undifferentiated connective tissue disor minda Surgical History Surgery Date(Month/Year) section 1994,1997 endometrial ablation
== END ==
LOC: HO.CARD 14:50
PROVIDERS: PCP Internal Medicine; Visit Provider Internal Medicine Cardiovascular Disease
DX: R94.31 Abnormal electrocardiogram [ECG] [EKG] (principal)
CPT/HCPCS: 93306

== ENCOUNTER → 2024-08-20 14:55 | Outpatient (BNV) | payer OTHER, SELFPAY | PROVIDERS: PCP Internal Medicine; Visit Provider Internal Medicine Cardiovascular Disease | DX: R94.31 Abnormal electrocardiogram [ECG] [EKG] (principal) | CPT/HCPCS: 93306 ==

== ENCOUNTER 2024-10-12 12:39 | Outpatient (AMB) | payer OTHER, SELFPAY ==
[2024-10-12 12:44] VITALS: BP 126/84; PULSE 68; BMI 33.3
--- NOTE | 2024-10-12 12:44 | MHC.OFFVIS ---
Vital Signs 10/12/24 12:44 Height 5 ft 4 in Weight 194 lb 0.108 oz BMI 33.3 BP 126/84 Blood Pressure Location Lt brachial Position Sitting Pulse 68 Intake Visit Reasons: follow up after test Intake Note: Follow-up after testing feeling good Chip Separator Required: No Allergies aspirin [Aspirin] Allergy (Mild, Verified 05/11/24 14:02) GI UPSET, upset stomach, stomach upset Medication List - Last Reconciled 10/12/24 by Lev Humphries MD celecoxib (Celebrex) 200 mg PO BID fluoxetine 40 mg PO DAILY gabapentin 800 mg PO BEDTIME hydroxychloroquine 200 mg PO DAILY hydroxyzine pamoate 25 mg PO TID PRN lamotrigine 200 mg PO DAILY mirtazapine 30 mg PO BEDTIME quetiapine 200 mg PO BEDTIME HPI Comments Details: Violet comes for follow-up. No new symptoms. Recently she had an echocardiogram after long time of ordering. This showed [id number] LV systolic dysfunction with LVEF of 40-45%. She denies any clear cardiac symptoms. Denies any lightheadedness, syncope. Denies any exertional shortness of breath, orthopnea, PND, leg edema. Denies any exertional chest pain. No prolonged palpitation irregular heartbeat. She has a scheduled myocardial perfusion imaging test coming up in mid October. On further inquiry she says her father of congestive heart failure, details unknown she was very young at that time. Grandmother also had congestive heart failure but unclear on the details. [facility] Medical History Encounter for long-term (current) use of NSAIDs Bilateral swelling of feet and ankles Bilateral ankle joint pain Pain in right arm Long-term use of immunosuppressant medication Hx of bronchitis Migraine Depression IBS (irritable bowel syndrome) Fibromyalgia Undifferentiated connective tissue disease Surgical History Hx of colonoscopy History of endometrial ablation History of History of bilateral ligation of fallopian tubes Family History Mother HTN (hypertension) Brother Diabetes Father Heart attack Other Mental health disorder Social History Household Members: None Housing: House Are you a primary farm or ranch animal caretaker to a significant other at home: No Do you presently have visiting nurse or other home services: No Alcohol intake: current Alcohol intake frequency: does not drink Alcohol type: wine Patient Tobacco Use Status: Never used Tobacco e-Cigarette/Vaping Use: Never Used Second Hand Smoke Exposure: No service: No Current occupational status: employed Current occupation: paraprofessional Cognitive needs: No Hearing needs: No Vision needs: Yes Female Reproductive History Menstrual Age of Menarche: 13 Review of Systems Const Denies chills, Denies fatigue, Denies fever(s), Denies frequent falls, Denies weakness, Denies weight gain and Denies weight loss ENT Denies dizziness Card Denies chest pain, Denies leg edema, Denies lightheadedness, Denies palpitations, Denies dyspnea, Denies dyspnea on exertion, Denies orthopnea and Denies other (loss of consciousness) Resp Denies cough, Denies dyspnea and Denies dyspnea on exertion GI Denies hematochezia and Denies change in stool character Musc Denies abnormal gait, Denies muscle weakness, Denies numbness, Denies radiating pain into limb and Denies tingling Neuro Denies Abnormal speech present, Denies abnormal gait, Denies dizziness, Denies frequent falls, Denies numbness, Denies tingling and Denies weakness Endo Denies fatigue and Denies palpitations Physical Exam Vital Signs: Last Vital Signs Pulse 68 10/12/24 12:44 BP 126/84 10/12/24 12:44 BMI result Body Mass Index 33.3 Const General: cooperative, comfortable, no acute distress, alert, awake and Physically active Nutritional Appearance: obese Orientation/consciousness: patient oriented x3 Limitations: no limitations HEENT Head: Yes normocephalic and Yes atraumatic Neck Neck: Yes trachea midline, Yes supple and Yes no JVD Carotids: no bruits Resp Effort & Inspection: normal respiratory effort Auscultation: clear to auscultation bilaterally Cardio Jugular venous distension: no JVD Palpation: normal PMI Rate: regular rate Rhythm: regular rhythm Heart sounds: S1 normal heart sound present, S2 normal heart sound present, no click, no gallops, no murmurs and no rubs GI Auscultation: normal bowel sounds Skin General skin exam: no rashes or lesions noted Neuro General: patient oriented x3 and no focal motor deficits Speech: No Abnormal speech present Extrem General: Yes no clubbing, cyanosis or edema Assessment & Plan Assessment & Plan (1) Cardiomyopathy: Code(s): I42.9 - Cardiomyopathy, unspecified Category: Medical Plan: New findings of cardiomyopathy with LV systolic dysfunction with LVEF of 40-45%. Given her connective tissue disorder myocardial ischemia needs to be ruled out. Scheduled for vasodilating myocardial perfusion imaging in the near future. If this is negative possibly connective tissue disease related cardiomyopathy in his LEs showed familial cardiomyopathy is likely. Meanwhile discussed about management of cardiomyopathy. She is currently not having any symptoms. Will start on neurohormonal modulators with valsartan 80 mg daily. Follow-up BNP in 1 week's time. Follow up in the clinic in 4 weeks time after the stress testing. If she has nonischemic etiology will continue to uptitrate neurohormonal modulation as tolerated. Advised to monitor blood pressure at home maintain a log. Signs and symptoms of heart failure were discussed. Follow up in the clinic in 4 weeks time, sooner p.r.n.. Thank you for allowing me to partake in her care Orders: Orders Basic Metabolic Panel 1 Week I42.9 - Cardiomyopathy, unspecified Medications: New valsartan 80 mg PO DAILY 30 tabs 5RF Coding Level of Care Code Est Pt Level 4 (28342) Complex EM visit Add On G2211 Diagnoses Cardiomyopathy I42.9
--- OUTSIDE RECORDS SUMMARY | 2024-10-12 13:59 | XMS_ITS | Patient Health Record ---
Author Organization [facility] Address [address] [place] [address] Care Team Providers Care Assembler Camper Name Role Phone Sarath ADAMSON, [facility] Primary Care Provider Tha Jenkins Jr Unavailable Allergies Allergen (clinical drug ingredient) Drug/Non Drug [...] Problem Status W/U Status Risk Notes Problem [id number] Colon cancer screening (Z12.11) Active confirmed Problem Personal history of colonic polyps (Z86.010) Active confirmed Problem 23300292 Slow transit constipation (K59.01) Active confirmed Problem 982736839 Irritable bowel syndrome with constipation (K58.1) Active confirmed Plan Of Treatment Future Test Test Name Order Date COLONOSCOPY 11/19/2017 COLONOSCOPY 01/16/2023 Insurance Providers Payer Name Payer Address Payer Phone Subscriber Number Group Number Insured Name Patient Relationship to Insured Coverage Start Date Coverage End Date [facility] [address] [address] [place], [place] [id number] VICENTE TERRY Self - patient is the insured Medical (General) History Medical History History ICD Code fibromyalgia endometriosis anxiety/depression mood swings insomnia Irritable bowel syndrome with constipati on Colonoscopy 02/26, tubular adenoma, five -year followup 03/03 Undifferentiated connective tissue disor minda Surgical History Surgery Date(Month/Year) section 1994,1997 endometrial ablation
== END 2024-10-12 13:08 | disposition home or self-care (01) ==
LOC: HO.HCS 12:39
PROVIDERS: PCP Internal Medicine; Visit Provider Internal Medicine Cardiovascular Disease
DX: I42.9 Cardiomyopathy, unspecified (principal)
CPT/HCPCS: 99214; G2211

== ENCOUNTER → 2024-10-12 12:39 | Outpatient (BNVA) | payer OTHER, SELFPAY | PROVIDERS: PCP Internal Medicine; Visit Provider Internal Medicine Cardiovascular Disease | DX: I42.9 Cardiomyopathy, unspecified (principal) | CPT/HCPCS: 99212 ==

== ENCOUNTER → 2024-10-28 09:44 | Outpatient (REF) | payer OTHER, SELFPAY ==
--- NOTE | ~2024-10-28 | NM_ITS ---
Lexiscan Myocardial perfusion study Indication: Cardiomyopathy Technique: The patient was brought in for a Lexiscan perfusion study on 10/28/2024 and was injected 0.4 mg of Lexiscan intravenously. Within a minute of this injection 30 mCi of sestamibi was given intravenously. Images were obtained using the SPECT gamma camera interlaced with the gating device. Images were obtained in supine position. Resting perfusion study was performed on 11/01/2024. Patient was administered 30 mCi of sestamibi intravenously at rest. Images were then obtained in supine position. Total DLP 81 mGy-cm. Images were processed with the software and compared side to side in short axis, horizontal long axis and vertical long axis views. Findings: Raw aquisition reviewed. The stress perfusion study showed decreased tracer uptake in the apical anterior wall, apex and adjacent part of inferior wall. The gated study shows diminished LV systolic function with calculated LVEF of 45%. LV cavity is dilated in size. The gated study shows diminished LVEF at 45%. Reduced contractility in the apical anterior wall and adjacent apex. Resting study shows diminished tracer uptake in the apical part of anterior wall and adjacent apex. Improvement with CT attenuation correction suggestive of soft tissue attenuation artifact. Gating at rest reveals ejection fraction at 42%. The findings are consistent with mostly fixed perfusion defect in the apical anterior wall and just apex with minimal reversibility. NM/TN cardiolite stress test Impression: 1. Myocardial perfusion imaging study shows mostly fixed perfusion defect with minimal reversibility in the apical part of anterior wall and adjacent apex. Could represent nontransmural infarct. Could also be artifactual. 2. Gated LVEF is 45% during stress and 42% during rest. 3. Transient ischemic dilatation not present. EKG component of the test reported separately. Electronically signed by: Lc Lora MD 11/02/2024 03:15 PM EDT
--- NOTE | 2024-10-28 09:48 | CA_ITS ---
Acquisition Time: 2024-10-28 10:08:38 Total Exercise Time: 00:02:00 Test Indications: Medications: Protocol: LEXISCAN Max HR: 87 BPM 54% of Pred: 160 BPM Max BP: 130/78 mmHG Max Work Load: 1.0 METS Pharmacological stress test with Lexiscan while pt swings her legs in chair, with reports of feeling fatigued, headache and SOB, without any arrythmias, with normotensive response to exercise. Nondiagnostic EKG for ischemia. In recovery, pt treated with IVP Aminophylline 75 mg to reverse Lexiscan after which pt feeling back to baseline. Nuclear images pending. Test reviewed with Dr. Lopes. Referred By: Lev Humphries Electronically Signed By: Sarmad Murrieta
--- OUTSIDE RECORDS SUMMARY | 2024-10-28 10:45 | XMS_ITS | Patient Health Record ---
Author Organization [facility] Address [address] [place] [address] Care Team Providers Care Glass Novelty Maker Name Role Phone Sarath AD[facility], [facility] Primary Care Provider Tha Jenkins Jr Unavailable [phone] Allergies Allergen (clinical drug ingredient) Drug/Non Drug [...] Problem Status W/U Status Risk Notes Problem [id number] Colon cancer screening (Z12.11) Active confirmed Problem History of polyp of colon (situation) (670610081) Personal history of colonic polyps (Z86.010) Active confirmed Problem 32068249 Slow transit constipation (K59.01) Active confirmed Problem 155253283 Irritable bowel syndrome with constipation (K58.1) Active confirmed Plan Of Treatment Future Test Test Name Order Date COLONOSCOPY 11/19/2017 COLONOSCOPY 01/16/2023 Insurance Providers Payer Name Payer Address Payer Phone Subscriber Number Group Number Insured Name Patient Relationship to Insured Coverage Start Date Coverage End Date [facility] [address] [address] [place], [place] [id number] VICENTE TERRY Self - patient is the insured Medical (General) History Medical History History ICD Code fibromyalgia endometriosis anxiety/depression mood swings insomnia Irritable bowel syndrome with constipati on Colonoscopy 02/26, tubular adenoma, five -year followup 03/03 Undifferentiated connective tissue disor minda Surgical History Surgery Date(Month/Year) section 1994,1997 endometrial ablation
== END ==
LOC: HO.CARD 09:44
PROVIDERS: PCP Internal Medicine; Visit Provider Internal Medicine Cardiovascular Disease
DX: R94.31 Abnormal electrocardiogram [ECG] [EKG] (principal); R93.1 Abnormal findings on diagnostic imaging of heart and coronary circulation; R06.02 Shortness of breath
CPT/HCPCS: 78452; 93017; A9500; J0280; J2785

== ENCOUNTER → 2024-10-28 09:48 | Outpatient (BNV) | payer OTHER, SELFPAY | PROVIDERS: PCP Internal Medicine | DX: R06.02 Shortness of breath (principal) | CPT/HCPCS: 78452; 93016; 93018 ==

== ENCOUNTER 2024-10-29 10:38 | Outpatient (AMB) | payer OTHER, SELFPAY ==
[2024-10-29 10:41] VITALS: BP 112/70; PULSE 70; RESP 15; TEMP 36.8; O2SAT 96; BMI 33.3
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
== END 2024-10-29 10:59 | disposition home or self-care (01) ==
LOC: HO.HMCC 10:39
PROVIDERS: PCP Internal Medicine; Visit Provider Internal Medicine
DX: G25.81 Restless legs syndrome (principal); F33.41 Major depressive disorder, recurrent, in partial remission; Z79.60 Long term (current) use of unspecified immunomodulators and immunosuppressants; M32.19 Other organ or system involvement in systemic lupus erythematosus; H81.12 Benign paroxysmal vertigo, left ear; F43.10 Post-traumatic stress disorder, unspecified; Z86.59 Personal history of other mental and behavioral disorders; Z91.52 Personal history of nonsuicidal self-harm; Z87.898 Personal history of other specified conditions

== ENCOUNTER → 2024-10-29 10:38 | Outpatient (BNVA) | payer OTHER, SELFPAY | PROVIDERS: PCP Internal Medicine; Visit Provider Internal Medicine | DX: G25.81 Restless legs syndrome (principal); F33.41 Major depressive disorder, recurrent, in partial remission; M32.19 Other organ or system involvement in systemic lupus erythematosus; H81.12 Benign paroxysmal vertigo, left ear; F43.10 Post-traumatic stress disorder, unspecified; Z79.60 Long term (current) use of unspecified immunomodulators and immunosuppressants; Z86.59 Personal history of other mental and behavioral disorders; Z91.52 Personal history of nonsuicidal self-harm; Z87.898 Personal history of other specified conditions; Z13.31 Encounter for screening for depression; Z13.30 Encounter for screening examination for mental health and behavioral disorders, unspecified | CPT/HCPCS: 96127; 99212 ==

== ENCOUNTER 2024-11-01 14:25 | Outpatient (REF) | payer OTHER, SELFPAY ==
[2024-11-01 14:37] LABS: MANUAL DIFF FLAG NO
[2024-11-01 15:07] LABS: Basophils Percent Auto 0.5 % (0-2); Eosinophils Absolute Auto 0.1 X10*3/uL (0.0-0.4); Eosinophils Percent Auto 1.2 % (0-4); Hematocrit 40.5 % (37.0-47.0); Imm Gran Abs Auto 0.01 X10*3/uL (0.00-0.03); Imm Gran Pct Auto 0.2 % (0.0-0.4); Lymphocytes Absolute Auto 2.2 X10*3/uL (1.2-4.9); Lymphocytes Percent Auto 52.6 % (20-40); Mean Corpuscular HGB Conc 32.1 g/dl (31.0-35.0); Mean Corpuscular Hemoglobin 28.7 pg (27.0-33.0); Mean Corpuscular Volume 89.4 fL (80.0-98.0); Mean Platelet Volume 9.1 fL (9.4-12.3); Monocytes Absolute Auto 0.5 X10*3/uL (0.1-1.2); Neutrophils Absolute Auto 1.3 x10*3/uL (2.0-8.3); Neutrophils Percent Auto 32.5 % (45-73); Platelet Count 258 X10*3/uL (160-400); Red Blood Count 4.53 X10*6/uL (4.20-5.50); Red Cell Distribution Width 14.6 % (11.0-16.0); White Blood Count 4.1 X10*3/uL (4.8-10.8)
[2024-11-01 15:33] LABS: Alanine Aminotransferase 26 U/L (0-31); Albumin Level 4.4 g/dL (3.5-5.0); Alkaline Phosphatase 86 U/L (39-117); Anion Gap 11 (12-20); Aspartate Amino Transferase 27 U/L (5-31); Bilirubin Total 0.4 mg/dL (0.0-1.0); Blood Urea Nitrogen 12 mg/dL (9-16); Calcium 9.6 mg/dL (8.4-10.2); Carbon Dioxide 28 mmol/L (22-29); Chloride 108 mmol/L (96-108); Estimated Glomerular Filt Rate > 60; Glucose Random 116 mg/dL (60-115); Potassium 4.1 mmol/L (3.3-5.1); Sodium 143 mmol/L (135-145); Total Protein 7.3 g/dL (6.5-8.0)
[2024-11-01 15:49] LABS: Ferritin 103 ng/mL (10-250); TSH reflex Free T4 1.19 uIU/mL (0.32-4.0)
[2024-11-01 15:55] LABS: Vitamin B12 297 pg/mL (200-900)
--- OUTSIDE RECORDS SUMMARY | 2024-11-01 15:58 | XMS_ITS | Patient Health Record ---
Author Organization [facility] Address [address] [place] [address] Care Team Providers Care Nurse Receptionist Name Role Phone Sarath ADAMSON, [facility] Primary Care Provider Tha Jenkins Jr Unavailable [phone] Allergies Allergen (clinical drug ingredient) Drug/Non Drug [...] Problem Status W/U Status Risk Notes Problem 632747701 Colon cancer screening (Z12.11) Active confirmed Problem History of polyp of colon (situation) (936154862) Personal history of colonic polyps (Z86.010) Active confirmed Problem 74561658 Slow transit constipation (K59.01) Active confirmed Problem 008147740 Irritable bowel syndrome with constipation (K58.1) Active confirmed Plan Of Treatment Future Test Test Name Order Date COLONOSCOPY 11/19/2017 COLONOSCOPY 01/16/2023 Insurance Providers Payer Name Payer Address Payer Phone Subscriber Number Group Number Insured Name Patient Relationship to Insured Coverage Start Date Coverage End Date [facility] [address] [address] [place], [place] [id number] VICENTE TERRY Self - patient is the insured Medical (General) History Medical History History ICD Code fibromyalgia endometriosis anxiety/depression mood swings insomnia Irritable bowel syndrome with constipati on Colonoscopy 02/26, tubular adenoma, five -year followup 03/03 Undifferentiated connective tissue disor minda Surgical History Surgery Date(Month/Year) section 1994,1997 endometrial ablation
[2024-11-05 09:58] LABS: Vitamin D 25-OH, D2 5 ng/mL; Vitamin D 25-OH, D3 14 ng/mL; Vitamin D 25-OH, Total 19 ng/mL (30-100)
== END 2024-11-01 14:26 | disposition home or self-care (01) ==
LOC: HO.LAB 14:25
PROVIDERS: Absent Provider Internal Medicine Cardiovascular Disease; PCP Internal Medicine; Visit Provider Internal Medicine
DX: G25.81 Restless legs syndrome (principal)
CPT/HCPCS: 36415; 80053; 82306; 82607; 82728; 84443; 85025

== ENCOUNTER 2024-11-09 13:45 | Outpatient (AMB) | payer OTHER, SELFPAY ==
--- NOTE | 2024-11-09 13:55 | A.OFFVIS_ITS ---
Vital Signs 11/09/24 13:56 Height 5 ft 4 in Weight 192 lb 10.944 oz BMI 33.1 BP 112/62 Blood Pressure Location Lt brachial Position Sitting Pulse 65 Pulse Source Pulse Oximeter Intake Visit Reasons: 4 wk s/p new meds and stress /labs Associate Financial Analyst Required: No Allergies aspirin (Aspirin) Allergy (Mild, Verified 11/09/24 13:57) GI UPSET, upset stomach, stomach upset Medication List - Last Reconciled 11/09/24 by Sarmad Murrieta NP celecoxib (Celebrex) 200 mg PO BID cholecalciferol (vitamin D3) 25 mcg PO DAILY 90 days fluoxetine 40 mg PO DAILY gabapentin 800 mg PO BEDTIME hydroxychloroquine 200 mg PO DAILY hydroxyzine pamoate 25 mg PO TID PRN lamotrigine 200 mg PO DAILY mirtazapine 30 mg PO BEDTIME quetiapine 200 mg PO BEDTIME ropinirole 0.5 mg PO BEDTIME valsartan 80 mg PO DAILY HPI Comments Details: This is a 59-year-old female patient coming in for a follow-up visit. Patient was initially referred to the office for an abnormal EKG with her family history of coronary artery disease. Subsequently patient underwent an echo study that showed cardiomyopathy with an EF between 40-45%. Patient subsequently underwent a myocardial perfusion study. Patient states that she has been doing well overall and denies any cardiac symptoms of exertional chest pain, shortness of breath, palpitations, dizziness, orthopnea, PND, leg edema, presyncope, or syncope. Patient was previously started on valsartan for the cardiomyopathy and is affirming her compliance with it. [facility] Medical History Encounter for long-term (current) use of NSAIDs Bilateral swelling of feet and ankles Bilateral ankle joint pain Pain in right arm Long-term use of immunosuppressant medication Hx of bronchitis Migraine Depression IBS (irritable bowel syndrome) Fibromyalgia Undifferentiated connective tissue disease Surgical History Hx of colonoscopy History of endometrial ablation History of History of bilateral ligation of fallopian tubes Family History Mother HTN (hypertension) Brother Diabetes Father Heart attack Other Mental health disorder Social History Household Members: None Housing: House Are you a primary day care supervisor to a significant other at home: No Do you presently have visiting nurse or other home services: No Alcohol intake: current Alcohol intake frequency: does not drink Alcohol type: wine Patient Tobacco Use Status: Never used Tobacco e-Cigarette/Vaping Use: Never Used Second Hand Smoke Exposure: No service: No Current occupational status: employed Current occupation: paraprofessional Cognitive needs: No Hearing needs: No Vision needs: Yes Female Reproductive History Menstrual Age of Menarche: 13 Review of Systems ENT Reports dizziness Card Denies chest pain, Denies chest pain at rest, Denies chest pain with activity, Denies rapid heart rate, Denies pedal edema, Denies edema, Denies leg edema, Denies lightheadedness, Denies palpitations, Denies dyspnea, Denies dyspnea on exertion and Denies orthopnea Resp Denies cough, Denies dyspnea and Denies dyspnea on exertion GI Denies hematochezia and Denies change in stool character Musc Denies abnormal gait, Reports limited range of motion, Reports muscle cramps, Denies muscle weakness, Denies numbness, Denies radiating pain into limb, Denies stiffness and Denies tingling Neuro Denies abnormal gait, Reports dizziness, Denies numbness and Denies tingling Endo Denies palpitations Physical Exam Vital Signs: Last Vital Signs Pulse 65 11/09/24 13:56 BP 112/62 11/09/24 13:56 BMI result Body Mass Index 33.1 Const General: cooperative, healthy appearing, comfortable and no acute distress Orientation/consciousness: patient oriented x3 HEENT Head: Yes normal to inspection Neck Neck: Yes normal visual inspection, Yes trachea midline and Yes supple Chest Chest palpation & inspection: normal inspection of the chest Resp Effort & Inspection: normal respiratory effort Auscultation: clear to auscultation bilaterally, no crackles, no rales, no rhonchi and no wheezes Cardio Jugular venous distension: no JVD Palpation: normal PMI Rate: regular rate Rhythm: regular rhythm Heart sounds: S1 normal heart sound present, S2 normal heart sound present, no click, no gallops, no murmurs and no rubs Peripheral pulses: Peripheral pulses 2+ throughout GI Inspection: Yes normal to inspection Palpation (GI): Soft to palpation Auscultation: normal bowel sounds Skin General skin exam: no rashes or lesions noted Neuro General: patient oriented x3 Extrem General: Yes normal to inspection, No no pedal edema and No calf tenderness Psych Appearance: grossly normal Mental Status: mental status grossly normal Speech and movement: Normal speech and movement present Assessment & Plan Assessment & Plan (1) Abnormal EKG: Code(s): R94.31 - Abnormal electrocardiogram [ECG] [EKG] Category: Medical (2) Cardiomyopathy: Code(s): I42.9 - Cardiomyopathy, unspecified Category: Medical Plan 06/03/2024-EKG showed normal sinus rhythm with STT wave abnormality consistent with possible anterolateral ischemia and/or RV strain. 08/20/2024-patient underwent a echo study that showed a moderately increased LV wall thickness with mildly decreased LV systolic function with an ejection fraction between 40-45%, with mild dilation of the ascending aorta at 3.60 cm. 10/28/2024-patient subsequently underwent a myocardial perfusion study that showed mostly fixed perfusion defect with minimal reversibility in the apical part of the anterior wall and adjust and add PACs which could represent nontransmural infarct and also could be artifactual. Given above finding on the myocardial perfusion study, we will proceed with a coronary CTA for a more definite assessment for ischemic cardiomyopathy. Until then, continue with valsartan. In the case of nonischemic cardiomyopathy, we will titrate medications and treat patient with neurohormonal directed medical therapy. Further treatment plans depending on findings. Blood pressure currently is within normal limits. Advised monitoring blood pressures at home with a goal less than 130/80. No recent lipid profile. Last LDL from 2022 was elevated at 147. We will order a lipid profile to look for an LDL goal less than 70. Advised heart healthy diet, regular exercise, losing weight, med compliance, and management of vascular risk factors. Follow-up in 4 months after completion of coronary CTA. In the interim, patient will call the office with any concerns or change in symptoms. Advised ER care in case of exertional chest pain not resolved with rest. This note was generated using voice recognition software. While every effort has been made to ensure accuracy and proper senior firmware engineer, there may be occasional errors that could affect the content or meaning of the described symptoms. Orders: Orders Basic Metabolic Panel Today I42.9 - Cardiomyopathy, unspecified CT Cardiac Coronary Angio Today I42.9 - Cardiomyopathy, unspecified Lipid Panel Today I42.9 - Cardiomyopathy, unspecified Coding Level of Care Code Est Pt Level 4 (86852) Complex EM visit Add On G2211 Diagnoses Abnormal EKG R94.31 Cardiomyopathy I42.9 Time Spent (min) 32 Comment Time spent in reviewing the chart, test results, assessment, counseling and documentation.
[2024-11-09 13:56] VITALS: BP 112/62; PULSE 65; BMI 33.1
--- OUTSIDE RECORDS SUMMARY | 2024-11-09 14:55 | XMS_ITS | Patient Health Record ---
Author Organization [facility] Address [address] [place] [address] Care Team Providers Care Business Support Administrator Name Role Phone Sarath ADAMSON, [facility] Primary Care Provider Tha Jenkins Jr Unavailable [...] Problem Status W/U Status Risk Notes Problem 576528312 Colon cancer screening (Z12.11) Active confirmed Problem History of polyp of colon (situation) (859504220) Personal history of colonic polyps (Z86.010) Active confirmed Problem 14769080 Slow transit constipation (K59.01) Active confirmed Problem 283457222 Irritable bowel syndrome with constipation (K58.1) Active confirmed Plan Of Treatment Future Test Test Name Order Date COLONOSCOPY 11/19/2017 COLONOSCOPY 01/16/2023 Insurance Providers Payer Name Payer Address Payer Phone Subscriber Number Group Number Insured Name Patient Relationship to Insured Coverage Start Date Coverage End Date [facility] [address] [address] [place], [place] [id number] VICENTE TERRY Self - patient is the insured Medical (General) History Medical History History ICD Code fibromyalgia endometriosis anxiety/depression mood swings insomnia Irritable bowel syndrome with constipati on Colonoscopy 02/26, tubular adenoma, five -year followup 03/03 Undifferentiated connective tissue disor minda Surgical History Surgery Date(Month/Year) section 1994,1997 endometrial ablation
== END 2024-11-09 14:18 | disposition home or self-care (01) ==
LOC: HO.HCS 13:46
PROVIDERS: PCP Internal Medicine
DX: R94.31 Abnormal electrocardiogram [ECG] [EKG] (principal); I42.9 Cardiomyopathy, unspecified
CPT/HCPCS: 99214; G2211

== ENCOUNTER → 2024-11-09 13:45 | Outpatient (BNVA) | payer OTHER, SELFPAY | PROVIDERS: PCP Internal Medicine | DX: R94.31 Abnormal electrocardiogram [ECG] [EKG] (principal); I42.9 Cardiomyopathy, unspecified | CPT/HCPCS: 99212 ==

== ENCOUNTER 2024-11-11 08:44 | Outpatient (AMB) | payer OTHER, SELFPAY ==
--- OUTSIDE RECORDS SUMMARY | 2024-11-11 08:52 | XMS_ITS | Patient Health Record ---
Author Organization [facility] Address [address] [place] [address] Care Team Providers Care Registered Client Associate Name Role Phone Sarath ADAMSON, [facility] Primary Care Provider Tha Jenkins Jr Unavailable [...] Problem Status W/U Status Risk Notes Problem 981406131 Colon cancer screening (Z12.11) Active confirmed Problem History of polyp of colon (situation) (580752583) Personal history of colonic polyps (Z86.010) Active confirmed Problem 07655512 Slow transit constipation (K59.01) Active confirmed Problem 727348145 Irritable bowel syndrome with constipation (K58.1) Active confirmed Plan Of Treatment Future Test Test Name Order Date COLONOSCOPY 11/19/2017 COLONOSCOPY 01/16/2023 Insurance Providers Payer Name Payer Address Payer Phone Subscriber Number Group Number Insured Name Patient Relationship to Insured Coverage Start Date Coverage End Date [facility] [address] [address] [place], [place] [id number] VICENTE TERRY Self - patient is the insured Medical (General) History Medical History History ICD Code fibromyalgia endometriosis anxiety/depression mood swings insomnia Irritable bowel syndrome with constipati on Colonoscopy 02/26, tubular adenoma, five -year followup 03/03 Undifferentiated connective tissue disor minda Surgical History Surgery Date(Month/Year) section 1994,1997 endometrial ablation
--- NOTE | 2024-11-11 10:16 | A.OFFPC_ITS ---
Intake Visit Reasons: 2 week follow up Allergies aspirin (Aspirin) Allergy (Mild, Verified 11/09/24 13:57) GI UPSET, upset stomach, stomach upset Medication List - Last Reconciled 11/11/24 by La Clemens MD celecoxib (Celebrex) 200 mg PO BID cholecalciferol (vitamin D3) 25 mcg PO DAILY 90 days fluoxetine 40 mg PO DAILY gabapentin 800 mg PO BEDTIME hydroxychloroquine 200 mg PO DAILY hydroxyzine pamoate 25 mg PO TID PRN lamotrigine 200 mg PO DAILY mirtazapine 30 mg PO BEDTIME quetiapine 200 mg PO BEDTIME ropinirole 0.5 mg PO BEDTIME valsartan 80 mg PO DAILY Tobacco use date assessed: 10/29/24 Dental Screening Dental Screen Date: 10/29/24 HPI 2 week follow up HPI Details History - The patient is a 59-year-old female pr esenting for f/u on restless leg syndrom and balance issues. - Initial complaint of leg discomfort: P atient reports persistent, though reduced, discomfort in her legs. She describes it as bothersome at times, indicating an improvement in symptoms compared to before. she was given Ropinirol .5 mg last visit - Balance issues: Patient reports a sign ificant lack of balance while walking, which impairs her ability to walk steadily. she has apt coing up with Neurology - Vitamin B12 deficiency: Recently ident ified through blood tests, taking suppliment Medical History: - Vitamin B12 deficiency - Vitamin D deficiency. Diagnostic Results: - Labs: Vitamin B12 deficiency and Vitam in D deficiency; normal electrolytes, kidney function, and liver enzymes. Thyroid function reported as normal. Problem List - Restless leg syndrome - Balance disturbance - Vitamin B12 deficiency - Vitamin D deficiency Patient Instructions - Take the Ropinirol 1 mg medication. - Begin taking a vitamin B12 supplement daily. - Continue taking Vitamin D until furthe r instructed. - Follow up with already scheduled neuro -urology appointment. Review of Systems - General: No fever no chills - Neurological: No headaches no dizziness - Ear nose throat: No sore throat no hearing difficulty no ear pain - Cardiovascular: No syncope, no chest pain, no palpitations - Gastrointestinal: No nausea vomiting or diarrhea [facility] Medical History Encounter for long-term (current) use of NSAIDs Bilateral swelling of feet and ankles Bilateral ankle joint pain Pain in right arm Long-term use of immunosuppressant medication Hx of bronchitis Migraine Depression IBS (irritable bowel syndrome) Fibromyalgia Undifferentiated connective tissue disease Surgical History Hx of colonoscopy History of endometrial ablation History of History of bilateral ligation of fallopian tubes Family History Mother HTN (hypertension) Brother Diabetes Father Heart attack Other Mental health disorder Social History Household Members: None Housing: House Are you a primary chronic care nurse to a significant other at home: No Do you presently have visiting nurse or other home services: No Alcohol intake: current Alcohol intake frequency: does not drink Alcohol type: wine Patient Tobacco Use Status: Never used Tobacco e-Cigarette/Vaping Use: Never Used Second Hand Smoke Exposure: No service: No Current occupational status: employed Current occupation: paraprofessional Cognitive needs: No Hearing needs: No Vision needs: Yes Female Reproductive History Menstrual Age of Menarche: 13 Questionnaire Thrive Questionnaire Date Thrive assessed: 10/29/24 SPENSER-7 AMB Questionnaire SPENSER-7 Date SPENSER - 7 assessed: 10/29/24 Source: Developed by Drs. Evgeny Infante, Celina Soto, Wing Izaguirre and colleagues, with an educational deniz from [email or web address]). Physical exam (Primary Care) Tobacco/Smoking Status: Tobacco use Status Tobacco use date assessed 10/29/24 11/11/24 10:18 Patient Tobacco Use Status Never used Tobacco 11/11/24 10:18 e-Cigarette/Vaping Use Never Used 11/11/24 10:18 Thrive Assessment: Date of Thrive Assessment Date Thrive assessed 10/29/24 11/11/24 10:18 Telehealth Telehealth Telehealth Platform: [facility] Location of provider rendering services: practice address Location of patient: address on file Patient Identification confirmed using: Name, : Yes Telehealth method: video (attempted) Patient verbally consented to treatment: Yes Patient verbally consented to billing insurance company: Yes Patient informed of any privacy concerns related to visit: Yes Minutes spent on Phone/Video with Pt.: 13 Coding Level of Care Code Tele Est Pt Level 3 (28333) Diagnoses Restless leg syndrome G25.81 Vitamin D deficiency E55.9 B12 deficiency E53.8 Assessment & Plan Assessment & Plan (1) Restless leg syndrome: Code(s): G25.81 - Restless legs syndrome Category: Medical (2) Vitamin D deficiency: Code(s): E55.9 - Vitamin D deficiency, unspecified Category: Medical (3) B12 deficiency: Code(s): E53.8 - Deficiency of other specified B group vitamins Category: Medical Plan History - The patient is a 59-year-old female presenting for f/u on restless leg syndrom and balance issues. - Initial complaint of leg discomfort: Patient reports persistent, though reduced, discomfort in her legs. She describes it as bothersome at times, indicating an improvement in symptoms compared to before. she was given Ropinirol .5 mg last visit - Balance issues: Patient reports a significant lack of balance while walking, which impairs her ability to walk steadily. she has apt coing up with Neurology - Vitamin B12 deficiency: Recently identified through blood tests, taking suppliment Medical History: - Vitamin B12 deficiency - Vitamin D deficiency. Diagnostic Results: - Labs: Vitamin B12 deficiency and Vitamin D deficiency; normal electrolytes, kidney function, and liver enzymes. Thyroid function reported as normal. Problem List - Restless leg syndrome - Balance disturbance - Vitamin B12 deficiency - Vitamin D deficiency Patient Instructions - Take the Ropinirol 1 mg medication. - Begin taking a vitamin B12 supplement daily. - Continue taking Vitamin D until further instructed. - Follow up with already scheduled neuro-urology appointment. Medications: New cyanocobalamin (vitamin B-12) 1,000 mcg PO DAILY 90 tabs 0RF 90 days Changed From ropinirole administer 1-3 hours before bedtime 0.5 mg PO BEDTIME 30 tabs 0RF To ropinirole administer 1-3 hours before bedtime 1 mg PO BEDTIME 90 tabs 0RF 90 days
== END 2024-11-11 10:27 | disposition home or self-care (01) ==
LOC: HO.HMCC 08:44
PROVIDERS: PCP Internal Medicine; Visit Provider Internal Medicine
DX: G25.81 Restless legs syndrome (principal); E55.9 Vitamin D deficiency, unspecified; E53.8 Deficiency of other specified B group vitamins

== ENCOUNTER 2024-12-22 12:18 | Outpatient (AMB) | payer OTHER, SELFPAY ==
[2024-12-22 12:20] VITALS: BP 120/80; PULSE 70; O2SAT 98; BMI 32.6
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
--- OUTSIDE RECORDS SUMMARY | 2024-12-22 12:59 | XMS_ITS | Patient Health Record ---
Author Organization [facility] Address [address] [place] [address] Care Team Providers Care Airfield Manager Name Role Phone Sarath ADAMSON, [facility] Primary [facility] Provider Tha Jenkins Jr Unavailable [phone] Allergies Allergen (clinical drug ingredient) Drug/Non Drug Allergy documented on EMR Reaction Allergy Type Onset Date Status -81 stomach upset Drug Allergy Act noelle Reason [...] Problem Status W/U Status Risk Notes Problem 686755954 Colon cancer screening (Z12.11) Active confirmed Problem History of polyp of colon (situation) (122607219) Personal history of colonic polyps (Z86.010) Active confirmed Problem [id number] Slow transit constipation (K59.01) Active confirmed Problem [id number] Irritable bowel syndrome with constipation (K58.1) Active confirmed Plan Of Treatment Future Test Test Name Order Date COLONOSCOPY 11/19/2017 COLONOSCOPY 01/16/2023 Insurance Providers Payer Name Payer Address Payer Phone Subscriber Number Group Number Insured Name Patient Relationship to Insured Coverage Start Date Coverage End Date [facility] [address] [address] [place], [place] [id number] VICENTE TERRY Self - patient is the insured Medical (General) History Medical History History ICD Code fibromyalgia endometriosis anxiety/depression mood swings insomnia Irritable bowel syndrome with constipati on Colonoscopy 02/26, tubular adenoma, five -year followup 03/03 Undifferentiated connective tissue disor minda Surgical History Surgery Date(Month/Year) section 1994,1997 endometrial ablation
== END 2024-12-22 12:44 | disposition home or self-care (01) ==
LOC: HO.HMCC 12:19
PROVIDERS: PCP Internal Medicine; Visit Provider Internal Medicine
DX: Z00.01 Encounter for general adult medical examination with abnormal findings (principal); M32.19 Other organ or system involvement in systemic lupus erythematosus; E66.811 Obesity, class 1; Z68.32 Body mass index [BMI] 32.0-32.9, adult; R42 Dizziness and giddiness; M35.9 Systemic involvement of connective tissue, unspecified; H81.12 Benign paroxysmal vertigo, left ear; Z79.60 Long term (current) use of unspecified immunomodulators and immunosuppressants; B35.1 Tinea unguium; F33.41 Major depressive disorder, recurrent, in partial remission

== ENCOUNTER → 2024-12-22 12:18 | Outpatient (BNVA) | payer OTHER, SELFPAY | PROVIDERS: PCP Internal Medicine; Visit Provider Internal Medicine | DX: Z00.01 Encounter for general adult medical examination with abnormal findings (principal); M79.7 Fibromyalgia; I10 Essential (primary) hypertension; E55.9 Vitamin D deficiency, unspecified; E53.8 Deficiency of other specified B group vitamins; K21.9 Gastro-esophageal reflux disease without esophagitis; B35.1 Tinea unguium; M32.19 Other organ or system involvement in systemic lupus erythematosus; M35.9 Systemic involvement of connective tissue, unspecified; H81.12 Benign paroxysmal vertigo, left ear; E66.811 Obesity, class 1; E66.09 Other obesity due to excess calories; Z79.60 Long term (current) use of unspecified immunomodulators and immunosuppressants; F33.41 Major depressive disorder, recurrent, in partial remission; Z68.32 Body mass index [BMI] 32.0-32.9, adult | CPT/HCPCS: 99212; 99396 ==

== ENCOUNTER 2024-12-24 10:44 | Outpatient (AMB) | payer OTHER, SELFPAY ==
[2024-12-24 10:48] VITALS: BP 120/76; PULSE 69; O2SAT 98; BMI 32.5
--- NOTE | 2024-12-24 10:48 | A.OFFVIS_ITS ---
Vital Signs 12/24/24 10:48 Height 5 ft 4 in Weight 189 lb 2.506 oz BMI 32.5 BP 120/76 Blood Pressure Location Lt brachial Position Sitting Pulse 69 Pulse Source Pulse Oximeter Pulse Oximetry (%) 98 Oxygen Delivery Method Room Air Intake Visit Reasons: follow up Intake Note: Patient presents for follow up on fibromyalgia, and pain is getting worse, pain from head to toe, every day, she complains of bilateral thumb pain. She is also requesting refill of Gabapentin today. Accompanied by: Self / Same As Patient Allergies aspirin (Aspirin) Allergy (Mild, Verified 12/24/24 10:53) GI UPSET, upset stomach, stomach upset Medication List - Last Reconciled 12/24/24 by Lynsey Lincoln MD cholecalciferol (vitamin D3) 25 mcg PO DAILY 90 days cyanocobalamin (vitamin B-12) 1,000 mcg PO DAILY 90 days famotidine 20 mg PO DAILY fluoxetine 40 mg PO DAILY gabapentin 800 mg PO BEDTIME hydroxychloroquine 200 mg PO DAILY hydroxyzine pamoate 25 mg PO TID PRN lamotrigine 200 mg PO DAILY linaclotide 72 mcg PO DAILY meclizine 25 mg PO TID PRN mirtazapine 30 mg PO BEDTIME pantoprazole 40 mg PO DAILY quetiapine 200 mg PO BEDTIME ropinirole 1 mg PO BEDTIME 90 days valsartan 80 mg PO DAILY HPI Comments Details: Patient is a 59-year-old female with depression, fibromyalgia and undifferentiated connective tissue disease who presents today for follow up. Interval History: Patient last seen 05/11/24 - On plaquenil 200mg daily and gabapentin 800mg at night - C/o worsening fibromyalgia pain, dry mouth - Shoulder pain improved - Added celebrex to see if this would help Today - On plaquenil 200mg daily and gabapentin 800mg at night - Started celebrex but has not noticed much improvement in her pain - Today complains of pain in her neck, back, hands luz elena 1st CMC joints, feet and shoulders Rheumatologic History: Patient diagnosed with undifferentiated connective tissue disease on a background of positive ESTER, low complements, leukopenia and arthralgias. Has been maintained on Plaquenil monotherapy since 2019 Current Rheumatology Medication(s): Plaquenil 200mg daily Gabapentin 800mg at night ON LICENSE OF [facility] Medical History Encounter for long-term (current) use of NSAIDs Bilateral swelling of feet and ankles Bilateral ankle joint pain Pain in right arm Long-term use of immunosuppressant medication Hx of bronchitis Migraine Depression IBS (irritable bowel syndrome) Fibromyalgia Undifferentiated connective tissue disease Surgical History Hx of colonoscopy History of endometrial ablation History of History of bilateral ligation of fallopian tubes Family History Mother HTN (hypertension) Brother Diabetes Father Heart attack Other Mental health disorder Social History Household Members: None Housing: House Are you a primary critical care specialist to a significant other at home: No Do you presently have visiting nurse or other home services: No Alcohol intake: current Alcohol intake frequency: does not drink Alcohol type: wine Patient Tobacco Use Status: Never used Tobacco e-Cigarette/Vaping Use: Never Used Second Hand Smoke Exposure: No service: No Current occupational status: employed Current occupation: paraprofessional Cognitive needs: No Hearing needs: No Vision needs: Yes Female Reproductive History Menstrual Age of Menarche: 13 Review of Systems Const All systems reviewed & are unremarkable except as noted in HPI and below Physical Exam Exam Exam: Vital signs reviewed Physical Examination CONSTITUITIONAL Patient alert and cooperative. Well appearing and in no apparent painful distress MSK Hands * Right Hand: Able to make a fist. No swelling or tenderness to palpation of these joints. * Left Hand: Able to make a fist. No swelling or tenderness to palpation of these joints. * Very early Herbedens nodes noted bilaterally * TTP of the 1st CMC joints bilaterally, with positive 1st CMC grind test Wrists * Right Wrist: Full ROM. 70 degrees of wrist flexion, 80 degrees of wrist extension. No swelling or TTP * Left Wrist: Full ROM. 70 degrees of wrist flexion, 80 degrees of wrist extension. No swelling or TTP Elbows * Right Elbow: Full ROM. No swelling or TTP. No TTP of the medial epicondyle, but TTP of the lateral epicondyle * Left Elbow: Full ROM. No swelling or TTP. No TTP of the medial and lateral epicondyles Shoulders * Right shoulder: Full ROM. No swelling noted. TTP of the AC joint and posterior shoudler * Left shoulder: Full ROM. No swelling noted. TTP of the AC joint and posterior shoudler Hip bursa: Tenderness to palpation bilaterally Knees * Right knee: Full ROM. No swelling noted. * Left knee: Full ROM. No swelling noted. * TTP bilateral pes anserine bursa with mild swelling noted over the area Ankles * Right ankle: Good ankle dorsiflexion and plantar flexion. No swelling. No TTP of the ankle joint * Left ankle: Good ankle dorsiflexion and plantar flexion. No swelling. No TTP of the ankle joint * Swelling noted to the lateral malleolus bilaterally with TTP of the swelling Feet * Right foot: Negative squeeze test * Left foot: Negative squeeze test * Dorsal swelling of the foot noted Tender points? * Tenderness to palpation of the bilateral trapezius, supraspinatus, anterior costochondral junctions, bilateral suboccipital muscle insertions SKIN No rashes Vital Signs: Last Vital Signs Pulse 69 12/24/24 10:48 BP 120/76 12/24/24 10:48 Pulse Ox 98 12/24/24 10:48 Oxygen Delivery Method Room Air 12/24/24 10:48 BMI result Body Mass Index 32.5 Results Reviewed Results Reviewed: Laboratory Tests 10/23/23 11/01/24 16:21 14:36 WBC 4.1 L RBC 4.53 Hgb 13.0 Hct 40.5 Plt Count 258 ESR 9 Sodium 143 Potassium 4.1 D Chloride 108 Carbon Dioxide 28 BUN 12 Creatinine 0.74 AST 27 ALT 26 Alkaline Phosphatase 86 C-Reactive Protein 0.68 H 25-OH Vitamin D Total 19 L Laboratory Tests 07/30/18 12/24/18 08/19/22 14:48 11:20 14:51 Rheumatoid Factor < 15.0 ESTER Screen Positive H ESTER Titer 1:80 H ESTER Pattern Speckled SS-A/Ro Antibody <1.0 SS-B/La Antibody <1.0 Sm (Celis) Antibody <1.0 <1.0 NEG SmRNP Antibodies <1.0 Scl-70 Scleroderma Ab <1.0 SM/SWATCH MAKER IgG Antibody <1.0 NEG Thyroglobulin Antibody 4 H Complement C3 70 L Complement C4 11 L 10/23/23 16:21 Rheumatoid Factor ESTER Screen ESTER Titer ESTER Pattern SS-A/Ro Antibody SS-B/La Antibody Sm (Celis) Antibody SmRNP Antibodies Scl-70 Scleroderma Ab SM/SWATCH MAKER IgG Antibody Thyroglobulin Antibody Complement C3 117 Complement C4 16 Assessment & Plan Assessment & Plan (1) Undifferentiated connective tissue disease: Comment: 2019: ESTER 1:80, speckled. WBC low. C3 and C4 low. Anti DNA, anti BOGDAN, Sjogren's antibodies all negative. The hydroxychloroquine since 2019. Code(s): M35.9 - Systemic involvement of connective tissue, unspecified Category: Medical Plan: #UCTD Patient is a 59 year old female with undifferentiated connective disease. No evidence of synovitis or any other active disease on exam today Last Ophthal appt 06/2024 Plan - Continue plaquenil 200mg daily - Labs today: CBC, CMP, ESR, CRP, C3, C4, dsDNA, SPEP, RF (2) Fibromyalgia: Code(s): M79.7 - Fibromyalgia Category: Medical Plan: #Fibromyalgia Still with consistent pain. This is complicated by likely OA Will check XRs and pursue joint injections based on the results Plan - Continue gabapentin 800mg at night - Stop celebrex - Encouraged stretching and daily exercise (3) Long-term use of immunosuppressant medication: Code(s): Z79.60 - jail (current) use of unspecified immunomodulators and immunosuppressants Category: Medical Plan: #Long-term Use of Hydroxychloroquine Discussed with patient the risks and benefits of hydroxychloroquine in managing the rheumatic condition Benefits include: - Reduced pain, reduce mortality, maintenance of remission and reduction of flares Risks include: - GI upset, skin hyperpigmentation, retinal toxicity (especially after more than 5 years of use), myopathy Advised yearly ophthalmology visits Last ophthalmology visit: 05/2023 Plan I spent 30 minutes reviewing the record and labs, seeing the patient, discussing the treatment plan and documenting in the medical record ? Orders: Orders XR hand LT min 3V Today M25.50 - Pain in unspecified joint XR foot LT min 3V Today M25.50 - Pain in unspecified joint XR foot RT min 3V Today M25.50 - Pain in unspecified joint XR shoulder RT min 2V Today M25.511 - Pain in right shoulder, M25.512 - Pain in left shoulder Anti DNA DS Antibody Today M35.9 - Systemic involvement of connective tissue, unspecified Complement C4 Today M35.9 - Systemic involvement of connective tissue, unspecified Complete Blood Count Auto Diff Today M35.9 - Systemic involvement of connective tissue, unspecified Comprehensive Met. Panel Today M35.9 - Systemic involvement of connective tissue, unspecified C Reactive Protein Today M35.9 - Systemic involvement of connective tissue, unspecified Erythrocyte Sedimentation Rate Today M35.9 - Systemic involvement of connective tissue, unspecified Immunofixation Pnl, Serum Today M35.9 - Systemic involvement of connective tissue, unspecified XR hand RT min 3V Today M25.50 - Pain in unspecified joint XR lumbar spine 4V min Today M25.50 - Pain in unspecified joint XR thoracic spine 3V Today M25.50 - Pain in unspecified joint XR cervical spine 4V Today M25.50 - Pain in unspecified joint XR shoulder LT min 2V Today M25.511 - Pain in right shoulder, M25.512 - Pain in left shoulder Complement C3 Today M35.9 - Systemic involvement of connective tissue, unspecified Protein Electrophoresis, Serum Today M35.9 - Systemic involvement of connective tissue, unspecified Rheumatoid Factor Today M35.9 - Systemic involvement of connective tissue, unspecified Medications: Discontinued celecoxib (Celebrex) Discontinued Reason: Doctor's Order 200 mg PO BID 180 caps 1RF M79.7 - Fibromyalgia Coding Level of Care Code Est Pt Level 4 (99384) Complex EM visit Add On G2211 Diagnoses Undifferentiated connective tissue disease M35.9 Fibromyalgia M79.7 Long-term use of immunosuppressant medication Z79.60
--- OUTSIDE RECORDS SUMMARY | 2024-12-24 10:49 | XMS_ITS | Patient Health Record ---
Author Organization [facility] Address [address] [place] [address] Care Team Providers Care Er Physician Name Role Phone Sarath ADAMSON, [facility] Primary Care Provider Tha Jenkins Jr Unavailable [...] Problem Status W/U Status Risk Notes Problem [id number] Colon cancer screening (Z12.11) Active confirmed Problem History of polyp of colon (situation) (087608625) Personal history of colonic polyps (Z86.010) Active confirmed Problem 02854391 Slow transit constipation (K59.01) Active confirmed Problem [id number] Irritable bowel syndrome with constipation (K58.1) Active confirmed Plan Of Treatment Future Test Test Name Order Date COLONOSCOPY 11/19/2017 COLONOSCOPY 01/16/2023 Insurance Providers Payer Name Payer Address Payer Phone Subscriber Number Group Number Insured Name Patient Relationship to Insured Coverage Start Date Coverage End Date [facility] [address] [address] [place], [place] [id number] VICENTE TERRY Self - patient is the insured Medical (General) History Medical History History ICD Code fibromyalgia endometriosis anxiety/depression mood swings insomnia Irritable bowel syndrome with constipati on Colonoscopy 02/26, tubular adenoma, five -year followup 03/03 Undifferentiated connective tissue disor minda Surgical History Surgery Date(Month/Year) section 1994,1997 endometrial ablation
== END 2024-12-24 12:15 | disposition home or self-care (01) ==
LOC: HO.RHES 10:44
PROVIDERS: PCP Internal Medicine; Visit Provider Student in an Organized Health Care Education/Training Program
DX: M35.9 Systemic involvement of connective tissue, unspecified (principal); M79.7 Fibromyalgia; Z79.60 Long term (current) use of unspecified immunomodulators and immunosuppressants
CPT/HCPCS: 99214

== ENCOUNTER 2024-12-24 10:44 | Outpatient (REF) | payer OTHER, SELFPAY ==
[2024-12-24 17:38] LABS: MANUAL DIFF FLAG NO
[2024-12-24 17:49] LABS: Hematocrit 40.5 % (37.0-47.0); Hemoglobin 13.1 g/dl (12.0-16.0); Imm Gran Abs Auto 0.01 X10*3/uL (0.00-0.03); Imm Gran Pct Auto 0.3 % (0.0-0.4); Lymphocytes Absolute Auto 1.7 X10*3/uL (1.2-4.9); Mean Corpuscular HGB Conc 32.3 g/dl (31.0-35.0); Mean Corpuscular Hemoglobin 29.0 pg (27.0-33.0); Mean Corpuscular Volume 89.8 fL (80.0-98.0); NRBC Abs Auto 0.000 X10*3/uL (0.0-0.012); NRBC Pct Auto 0.0 /100WBC (0.0-0.2); Platelet Count 266 X10*3/uL (160-400); Red Blood Count 4.51 X10*6/uL (4.20-5.50); White Blood Count 3.5 X10*3/uL (4.8-10.8)
[2024-12-24 17:58] LABS: Alanine Aminotransferase 28 U/L (0-31); Albumin Level 4.6 g/dL (3.5-5.0); Alkaline Phosphatase 77 U/L (39-117); Anion Gap 15 (12-20); Aspartate Amino Transferase 34 U/L (5-31); Blood Urea Nitrogen 13 mg/dL (9-16); Calcium 9.8 mg/dL (8.4-10.2); Carbon Dioxide 26 mmol/L (22-29); Chloride 107 mmol/L (96-108); Estimated Glomerular Filt Rate > 60; Potassium 4.6 mmol/L (3.3-5.1); Sodium 143 mmol/L (135-145); Total Protein 7.3 g/dL (6.5-8.0)
[2024-12-27 22:28] LABS: Prot Elec - Albumin 4.6 g/dL (3.8-4.8); Prot Elec - Alpha1 0.3 g/dL (0.2-0.3); Prot Elec - Alpha2 0.7 g/dL (0.5-0.9); Prot Elec - Beta 1 0.5 g/dL (0.4-0.6); Prot Elec - Beta 2 0.3 g/dL (0.2-0.5); Prot Elec - Gamma 1.1 g/dL (0.8-1.7); Prot Elec - Total Protein 7.5 g/dL (6.1-8.1)
== END 2024-12-24 10:45 | disposition home or self-care (01) ==
LOC: HO.HKASLDS 10:44
PROVIDERS: PCP Internal Medicine; Visit Provider Student in an Organized Health Care Education/Training Program
DX: M35.9 Systemic involvement of connective tissue, unspecified (principal); M79.7 Fibromyalgia; M25.511 Pain in right shoulder; M25.512 Pain in left shoulder; Z79.60 Long term (current) use of unspecified immunomodulators and immunosuppressants; Z79.899 Other long term (current) drug therapy
CPT/HCPCS: 36415; 80053; 82784; 84165; 85025; 85652; 86140; 86160; 86225; 86334; 86431; 99212

== ENCOUNTER 2025-01-20 14:53 | Outpatient (AMB) | payer OTHER, SELFPAY ==
[2025-01-20 15:03] VITALS: BMI 34.4
--- NOTE | 2025-01-20 15:03 | A.OFFVIS_ITS ---
Vital Signs 3 01/20/25 15:03 Height 5 ft 3 in Weight 194 lb BMI 34.4 Intake Visit Reasons: Tinea Unguim Intake Note: Violet is a 59 year old female who presents today as a New Patient for evaluation of Bilateral Toenail Fungus. Patient reports that she has tried various home treatments that have not worked for her. She mentions she has bilateral pain in her great toes on the medial and lateral broders. She states the pain has been going on for 2 years and she has not tried OTC pain medication Allergies aspirin (Aspirin) Allergy (Mild, Verified 01/20/25 15:04) GI UPSET, upset stomach, stomach upset Medication List - Last Reconciled 01/20/25 by Yaquelin Frias DPM cholecalciferol (vitamin D3) 25 mcg PO DAILY 90 days ciclopirox 8% 1 appl topical BEDTIME 4 weeks cyanocobalamin (vitamin B-12) 1,000 mcg PO DAILY 90 days famotidine 20 mg PO DAILY fluoxetine 40 mg PO DAILY gabapentin 800 mg PO BEDTIME hydroxychloroquine 200 mg PO DAILY hydroxyzine pamoate 25 mg PO TID PRN lamotrigine 200 mg PO DAILY meclizine 25 mg PO TID PRN mirtazapine 30 mg PO BEDTIME pantoprazole 40 mg PO DAILY quetiapine 200 mg PO BEDTIME ropinirole 1 mg PO BEDTIME 90 days valsartan 80 mg PO DAILY HPI Comments Details: The patient is a 59-year-old female with a past medical history as seen below presenting with nail fungus. She reports having the condition for approximately five to six years, during which she has attempted various treatments, including home remedies and fqnp-xgy-akirvty medications, without success. The condition affects both halluces, characterized by mild discoloration and thickening of the nails. The patient has not experienced any severe symptoms such as pain or infection, although she notes discomfort when using nail portuguese remover or when wearing ill-fitting shoes. She has not used prescription treatments such as terbinafine or prescription topicals. The patient recently had blood work done in November, which showed slightly elevated liver function levels. She denies any recent pedal injuries. Denies any current nausea, vomiting, fever, or chills. [facility] Medical History (Updated 01/20/25 @ 15:22 by Yaquelin Frias DPM) Nail dystrophy Encounter for long-term (current) use of NSAIDs Bilateral swelling of feet and ankles Bilateral ankle joint pain Pain in right arm Long-term use of immunosuppressant medication Hx of bronchitis Migraine Depression IBS (irritable bowel syndrome) Fibromyalgia Undifferentiated connective tissue disease Surgical History Hx of colonoscopy History of endometrial ablation History of History of bilateral ligation of fallopian tubes Family History Mother HTN (hypertension) Brother Diabetes Father Heart attack Other Mental health disorder Social History Household Members: None Housing: House Are you a primary career services coordinator to a significant other at home: No Do you presently have visiting nurse or other home services: No Alcohol intake: current Alcohol intake frequency: does not drink Alcohol type: wine Patient Tobacco Use Status: Never used Tobacco e-Cigarette/Vaping Use: Never Used Second Hand Smoke Exposure: No service: No Current occupational status: employed Current occupation: paraprofessional Cognitive needs: No Hearing needs: No Vision needs: Yes Female Reproductive History Menstrual Age of Menarche: 13 Review of Systems Const Details: Dermatological: Reports mild discoloration and thickening of nails on bilateral halluces. Denies severe pain or infection. All systems reviewed & are unremarkable except as noted in HPI and below Physical Exam Vital Signs: BMI result Body Mass Index 34.4 Extrem Other: Bilateral lower extremity focused physical exam: Dermatological: Mild discoloration and thickening noted to bilateral hallucal nails. Remaining nails noted to be slightly thickened with no discoloration. No subungual debris noted. No incurvation of nails noted. Skin supple and turgor within normal limits. No clinical signs of infection. No erythema or edema noted. No hyperkeratotic lesions noted. Vascular: DP/PT pedal pulses palpable. Capillary refill time less than 3 seconds. Temperature gradient warm to warm. No varicosities noted. Pedal hair absent. Neuro: Protective sensation is grossly intact. Musculoskeletal: Minimal pain on palpation noted to the lateral border of the right hallucal nail. No pain to remaining toes. Range of motion of the forefoot, hindfoot, and ankle within normal limits. No crepitus noted. No gross abnormalities noted. Ankle/foot/toe images: 2 1. 2. Office Procedures AMB Debridement/Avulsion Podia Details: Debrided bilateral hallucal nails with a nail Nipper and obtain nail biopsies of bilateral hallucal nails. [id number] of Nail <6 Nail Biopsy: 28706 Nail unit biopsy Procedure code (CPT) selection complete Results Reviewed Results Reviewed: Biopsies of bilateral hallucal nails obtained and sent to pathology. Laboratory Tests 12/24/24 12:05 AST 34 H ALT 28 Assessment & Plan Assessment & Plan (1) Onychomycosis: Code(s): B35.1 - Tinea unguium Category: Medical (2) Nail dystrophy: Code(s): L60.3 - Nail dystrophy Category: Medical Plan Patient was informed and verbally consented to the use of an ambient scribe for clinic note documentation during this visit. Discussed with patient diagnosis of onychomycosis and educated patient on various treatment options ranging from topical or oral medication to total nail avulsion. At this time recommend medication. Prescribed ciclopirox 8% solution to be applied daily. Explained to patient to applied daily and the daily application requires filing of the nail surface to enhance absorption. Due to slightly elevated liver function levels (slightly elevated AST), oral terbinafine was not prescribed at this time. Debrided bilateral hallucal nails using a nail Nipper and nail biopsies were performed to confirm the diagnosis and guide further treatment. Patient is to return to the office in 1 month for further re-evaluation. If symptoms have not resolved, we will consider new labs to be drawn and if LFTs are within normal limits, we will prescribe oral terbinafine. Orders: Orders 2 Surgical Today B35.1 - Tinea unguium, L60.3 - Nail dystrophy AMB Debridement/Avulsion Podiatry Today B35.1 - Tinea unguium, L60.3 - Nail dystrophy Medications: New 2 ciclopirox 8% 1 appl topical BEDTIME 6.6 mL 0RF onychomycosis 4 weeks B35.1 - Tinea unguium, L60.3 - Nail dystrophy Coding Level of Care Code New Pt Level 3 (38781) Diagnoses Onychomycosis B35.1 Nail dystrophy L60.3 CPT Codes Skin Debridement - CPT: 17998-Islerzpijqc of Nail <6 ([id number]) Skin Debridement - CPT: 14936 Nail unit biopsy ([id number]) Time Spent (min) 30
--- OUTSIDE RECORDS SUMMARY | 2025-01-20 18:22 | XMS_ITS | Patient Health Record ---
Author Organization [facility] Address [address] [place] [address] Care Team Providers Care Warp Drawer Name Role Phone [facility]ath [facility], [facility] Primary Care Provider Tha Jenkins Jr [...] Problem Status W/U Status Risk Notes Problem 116704007 Colon cancer screening (Z12.11) Active confirmed Problem History of polyp of colon (situation) (273195088) Personal history of colonic polyps (Z86.010) Active confirmed Problem 92341615 Slow transit constipation (K59.01) Active confirmed Problem 434274138 Irritable bowel syndrome with constipation (K58.1) Active confirmed Plan Of Treatment Future Test Test Name Order Date COLONOSCOPY 11/19/2017 COLONOSCOPY 01/16/2023 Insurance Providers Payer Name Payer Address Payer Phone Subscriber Number Group Number Insured Name Patient Relationship to Insured Coverage Start Date Coverage End Date [facility] [address] [address] [place], [place] [id number] VICENTE TERRY Self - patient is the insured Medical (General) History Medical History History ICD Code fibromyalgia endometriosis anxiety/depression mood swings insomnia Irritable bowel syndrome with constipati on Colonoscopy 02/26, tubular adenoma, five -year followup 03/03 Undifferentiated connective tissue disor minda Surgical History Surgery Date(Month/Year) section 1994,1997 endometrial ablation
== END 2025-01-20 15:29 | disposition home or self-care (01) ==
LOC: HO.HPODS 14:54
PROVIDERS: PCP Internal Medicine; Visit Provider Student in an Organized Health Care Education/Training Program
DX: B35.1 Tinea unguium (principal); L60.3 Nail dystrophy
CPT/HCPCS: 11720; 99203

== ENCOUNTER 2025-01-20 15:22 | Outpatient (REF) | payer OTHER, SELFPAY | END 2025-01-20 15:23 | disposition home or self-care (01) | LOC: HO.LNP 15:22 | PROVIDERS: Visit Provider Student in an Organized Health Care Education/Training Program | DX: B35.1 Tinea unguium (principal); L60.3 Nail dystrophy | CPT/HCPCS: 88304; 88312 ==

== ENCOUNTER 2025-02-17 14:57 | Outpatient (AMB) | payer OTHER, SELFPAY ==
--- NOTE | 2025-02-17 15:03 | A.OFFVIS_ITS ---
Vital Signs 02/17/25 15:15 Height 5 ft 3 in Weight 194 lb BMI 34.4 Intake Visit Reasons: OV - Bilateral Great Toe onychomycosis Intake Note: Violet is a 59 year old female who presents today for a follow up of her Bilateral onychomycosis & Nail Dystrophy. At her last visit she prescribed ciclopirox and completed a Bilateral Great Toe Nail Debridements & nail biopsies were sent to the lab. Patient states she has been applying the ciclopirox as prescribed and she does not see any improvement at this time. Allergies aspirin (Aspirin) Allergy (Mild, Verified 02/17/25 15:15) GI UPSET, upset stomach, stomach upset Medication List - Last Reconciled 02/18/25 by Yaquelin Frias DPM cholecalciferol (vitamin D3) 25 mcg PO DAILY 90 days ciclopirox 8% 1 appl topical BEDTIME 4 weeks cyanocobalamin (vitamin B-12) 1,000 mcg PO DAILY 90 days famotidine 20 mg PO DAILY fluoxetine 40 mg PO DAILY gabapentin 800 mg PO BEDTIME hydroxychloroquine 200 mg PO DAILY hydroxyzine pamoate 25 mg PO TID PRN lamotrigine 200 mg PO DAILY linaclotide 72 mcg PO DAILY meclizine 25 mg PO TID PRN mirtazapine 30 mg PO BEDTIME pantoprazole 40 mg PO DAILY quetiapine 200 mg PO BEDTIME ropinirole 1 mg PO BEDTIME 90 days valsartan 80 mg PO DAILY HPI Comments Details: The patient is a 59-year-old female presenting for follow-up of onychomycosis. The condition has been persistent, and the patient has been applying ciclopirox daily. The patient reports filing the nails in between applications and reapplying the medication, noticing slight lightening of the discoloration on the right hallux versus the left. The patient has been advised to apply the medication to other nails if discoloration is observed, as a preventative measure. A refill for the medication has been requested and will be provided. She denies any adverse effects from the topical medication. She denies any recent pedal injuries. Denies any current nausea, vomiting, fever, or chills. [facility] Medical History (Updated 02/15/25 @ 13:54 by Merary Reich MA) Lupus (systemic lupus erythematosus) Anxiety Nail dystrophy Encounter for long-term (current) use of NSAIDs Bilateral swelling of feet and ankles Bilateral ankle joint pain Pain in right arm Long-term use of immunosuppressant medication Hx of bronchitis Migraine Depression IBS (irritable bowel syndrome) Fibromyalgia Undifferentiated connective tissue disease Surgical History Hx of colonoscopy History of endometrial ablation History of History of bilateral ligation of fallopian tubes Family History Mother HTN (hypertension) Brother Diabetes Father Heart attack Other Mental health disorder Social History Household Members: None Housing: House Are you a primary furnace caretaker to a significant other at home: No Do you presently have visiting nurse or other home services: No Alcohol intake: current Alcohol intake frequency: does not drink Alcohol type: wine Patient Tobacco Use Status: Never used Tobacco e-Cigarette/Vaping Use: Never Used Second Hand Smoke Exposure: No service: No Current occupational status: employed Current occupation: paraprofessional Cognitive needs: No Hearing needs: No Vision needs: Yes Female Reproductive History Menstrual Age of Menarche: 13 Review of Systems Const Details: Dermatological: Reports mild discoloration and thickening of nails on bilateral halluces. Denies severe pain or infection. All systems reviewed & are unremarkable except as noted in HPI and below Physical Exam Vital Signs: BMI result Body Mass Index 34.4 Extrem Other: Bilateral lower extremity focused physical exam: Dermatological: Mild discoloration and thickening noted to bilateral hallucal nails with slight improvement noted to the discoloration (right better than left). Remaining nails noted to be slightly thickened with no discoloration. No subungual debris noted. No incurvation of nails noted. Skin supple and turgor within normal limits. No clinical signs of infection. No erythema or edema noted. No hyperkeratotic lesions noted. Vascular: DP/PT pedal pulses palpable. Capillary refill time less than 3 seconds. Temperature gradient warm to warm. No varicosities noted. Pedal hair absent. Neuro: Protective sensation is grossly intact. Musculoskeletal: No pain on palpation noted to the lateral border of the right hallucal nail. No pain to remaining toes. Range of motion of the forefoot, hindfoot, and ankle within normal limits. No crepitus noted. No gross abnormalities noted. Results Reviewed Results Reviewed: Bilateral hallucal nails pathology: Positive for rare fungal hyphae and buds with appropriate control. Laboratory Tests 12/24/24 12:05 AST 34 H ALT 28 Assessment & Plan Assessment & Plan (1) Onychomycosis: Code(s): B35.1 - Tinea unguium Category: Medical (2) Nail dystrophy: Code(s): L60.3 - Nail dystrophy Category: Medical Plan Patient was informed and verbally consented to the use of an ambient scribe for clinic note documentation during this visit. I discussed with the patient the current management of her onychomycosis, emphasizing the importance of continued daily application of Ciclopirox. We talked about applying the medication to other nails if discoloration is noticed to prevent further infection. At this time patient opts for continuation of ciclopirox. The patient was advised to return in two months for a follow-up visit. - Continue daily application of Ciclopirox for onychomycosis. - Apply medication to other nails if discoloration is observed. - Refilled prescription for Ciclopirox. - Conduct laboratory tests if no improvement is observed to assess the need for oral medication. RTC in 2 months for re-evaluation. Orders: Orders Complete Blood Count Auto Diff 02/17/25 B35.1 - Tinea unguium Comprehensive Met. Panel 02/17/25 B35.1 - Tinea unguium Medications: Refilled ciclopirox 8% 1 appl topical BEDTIME 6.6 mL 1RF onychomycosis 4 weeks B35.1 - Tinea unguium, L60.3 - Nail dystrophy Coding Level of Care Code Est Pt Level 3 (28961) Diagnoses Onychomycosis B35.1 Nail dystrophy L60.3 Time Spent (min) 30
[2025-02-17 15:15] VITALS: BMI 34.4
== END 2025-02-17 15:10 | disposition home or self-care (01) ==
LOC: HO.HPODS 14:58
PROVIDERS: PCP Internal Medicine; Visit Provider Student in an Organized Health Care Education/Training Program
DX: B35.1 Tinea unguium (principal); L60.3 Nail dystrophy
CPT/HCPCS: 99213

== ENCOUNTER → 2025-02-17 14:57 | Outpatient (BNVA) | payer OTHER, SELFPAY | PROVIDERS: PCP Internal Medicine; Visit Provider Student in an Organized Health Care Education/Training Program | DX: B35.1 Tinea unguium (principal); L60.3 Nail dystrophy | CPT/HCPCS: 99212 ==

== ENCOUNTER 2025-03-04 15:09 | Outpatient (REF) | payer OTHER, SELFPAY ==
[2025-03-04 17:51] LABS: Anion Gap 15 (12-20); Blood Urea Nitrogen 11 mg/dL (9-16); Calcium 9.6 mg/dL (8.4-10.2); Carbon Dioxide 28 mmol/L (22-29); Chloride 105 mmol/L (96-108); Cholesterol 243 mg/dL (<200); Estimated Glomerular Filt Rate > 60; HDL Cholesterol 69 mg/dL (>40); Potassium 4.5 mmol/L (3.3-5.1); Sodium 143 mmol/L (135-145); Triglycerides 105 mg/dL (<150)
== END 2025-03-04 15:10 | disposition home or self-care (01) ==
LOC: HO.LAB 15:09
PROVIDERS: PCP Internal Medicine; Visit Provider Internal Medicine
DX: N95.1 Menopausal and female climacteric states (principal); R23.2 Flushing; I42.9 Cardiomyopathy, unspecified
CPT/HCPCS: 36415; 80048; 80061; 99212

== ENCOUNTER 2025-03-04 15:09 | Outpatient (AMB) | payer OTHER, SELFPAY ==
[2025-03-04 15:17] VITALS: BP 130/80; PULSE 63; RESP 16; TEMP 36.8; O2SAT 97; BMI 34.5
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
--- OUTSIDE RECORDS SUMMARY | 2025-03-04 16:46 | XMS_ITS | Patient Health Record ---
Author Organization [facility] Address [address] [place] [address] Care Team Providers Care Transportation Manager Name Role Phone Sarath ADAMSON, Asma Primary Care Provider Tha Jenkins Jr Unavailable [...] THE DAY ON EMPTY STOMACH FOR 30 DAYS; Duration: 30 Active Fluoxetine Active QUEtiapine Fumarate Active LORazepam Active Gabapentin Active Hydroxychloroquine Sulfate 2 00 MG 2 TABLETS ORALLY ONCE A DAY Active MiraLax (colon prep) 17 GM/SCOOP mixed with Gatorade or Crystal Light Orally begin at 5:00 p.m. the day before the procedure; Duration: 1 day 01/16/2023 Active hydrOXYzine HCl Acti [...] Problem Status W/U Status Risk Notes Problem Colon cancer screening (817268620) Colon cancer screening (Z12.11) Active confirmed Problem History of polyp of colon (situation) (013990624) Personal history of colonic polyps (Z86.010) Active confirmed Problem Slow transit constipation (46294502) Slow transit constipation (K59.01) Active confirmed Problem Irritable bowel syndrome characterized by constipation (995426677) Irritable bowel syndrome with constipation (K58.1) Active confirmed Plan Of Treatment Future Test Test Name Order Date COLONOSCOPY 11/19/2017 COLONOSCOPY 01/16/2023 Insurance Providers Payer Name Payer Address Payer Phone Subscriber Number Group Number Insured Name Patient Relationship to Insured Coverage Start Date Coverage End Date [facility] [address] [address] [place], [place] [id number] VICENTE TERRY Self - patient is the insured Medical (General) History Medical History History ICD Code fibromyalgia endometriosis anxiety/depression mood swings insomnia Irritable bowel syndrome with constipati on Colonoscopy 02/26, tubular adenoma, five -year followup 03/03 Undifferentiated connective tissue disor minda Surgical History Surgery Date(Month/Year) section 1994,1997 endometrial ablation
== END 2025-03-04 15:35 | disposition home or self-care (01) ==
LOC: HO.HMCC 15:10
PROVIDERS: PCP Internal Medicine; Visit Provider Internal Medicine
DX: N95.1 Menopausal and female climacteric states (principal); R23.2 Flushing

== ENCOUNTER 2025-03-15 12:58 | Outpatient (AMB) | payer OTHER, SELFPAY ==
[2025-03-15 12:59] VITALS: BP 124/64; PULSE 62; BMI 35.2
--- NOTE | 2025-03-15 12:59 | A.OFFVIS_ITS ---
Vital Signs 03/15/25 12:59 Height 5 ft 3 in Weight 198 lb 13.711 oz BMI 35.2 BP 124/64 Blood Pressure Location Lt brachial Position Sitting Pulse 62 Pulse Source Pulse Oximeter Intake Visit Reasons: 4 mth s/p cta Box Gluer Required: No Accompanied by: Daughter Allergies aspirin (Aspirin) Allergy (Mild, Verified 03/15/25 13:01) GI UPSET, upset stomach, stomach upset Medication List - Last Reconciled 03/15/25 by Sarmad Murrieta NP atorvastatin (Lipitor) 20 mg PO QPM cholecalciferol (vitamin D3) 25 mcg PO DAILY 90 days ciclopirox 8% 1 appl topical BEDTIME 4 weeks cyanocobalamin (vitamin B-12) 1,000 mcg PO DAILY 90 days famotidine 20 mg PO DAILY fluoxetine 40 mg PO DAILY gabapentin 800 mg PO BEDTIME hydroxychloroquine 200 mg PO DAILY hydroxyzine pamoate 25 mg PO TID PRN lamotrigine 200 mg PO DAILY meclizine 25 mg PO TID PRN mirtazapine 30 mg PO BEDTIME pantoprazole 40 mg PO DAILY quetiapine 200 mg PO BEDTIME ropinirole 1 mg PO BEDTIME 90 days valsartan 80 mg PO DAILY HPI Comments Details: This is a 59-year-old female patient coming in for a follow-up visit, accompanied by her daughter. Patient was initially referred to the office for an abnormal EKG with her family history of coronary artery disease. Subsequently patient underwent an echo study that showed cardiomyopathy with an EF between 40-45%. Patient then underwent a myocardial perfusion study that showed mostly fixed perfusion defect in the apical part of anterior wall and given this, we sent patient out for a coronary CTA. Today patient is reporting intermittent leg swelling and nonexertional shortness of breath. Patient is otherwise denying any exertional shortness of breath, chest pain, palpitations, dizziness, PND, presyncope or syncope. Patient is reporting compliance with all her medications. [facility] Medical History Lupus (systemic lupus erythematosus) Anxiety Nail dystrophy Encounter for long-term (current) use of NSAIDs Bilateral swelling of feet and ankles Bilateral ankle joint pain Pain in right arm Long-term use of immunosuppressant medication Hx of bronchitis Migraine Depression IBS (irritable bowel syndrome) Fibromyalgia Undifferentiated connective tissue disease Surgical History Hx of colonoscopy History of endometrial ablation History of History of bilateral ligation of fallopian tubes Family History Mother HTN (hypertension) Brother Diabetes Father Heart attack Other Mental health disorder Social History Household Members: None Housing: House Are you a primary care navigator to a significant other at home: No Do you presently have visiting nurse or other home services: No Alcohol intake: current Alcohol intake frequency: does not drink Alcohol type: wine Patient Tobacco Use Status: Never used Tobacco e-Cigarette/Vaping Use: Never Used Second Hand Smoke Exposure: No service: No Current occupational status: employed Current occupation: paraprofessional Cognitive needs: No Hearing needs: No Vision needs: Yes Female Reproductive History Menstrual Age of Menarche: 13 Review of Systems Const Denies daytime sleepiness, Denies difficulty sleeping, Denies snoring, Denies stops breathing during sleep and Denies weakness Card Denies chest pain, Denies rapid heart rate, Denies irregular heart rhythm, Denies claudication, Denies leg edema, Denies lightheadedness, Denies palpitations, Denies dyspnea, Reports dyspnea on exertion, Denies orthopnea, Denies paroxysmal nocturnal dyspnea and Denies slow heart rate Resp Denies cough, Denies dyspnea, Reports dyspnea on exertion and Denies snoring GI Reports no additional complaints, Denies hematochezia, Denies change in stool character and Denies dyspepsia Musc Denies abnormal gait, Reports myalgias, Denies muscle weakness and Denies numbness Neuro Denies abnormal gait, Denies numbness and Denies weakness Endo Denies palpitations Physical Exam Vital Signs: Last Vital Signs Pulse 62 03/15/25 12:59 BP 124/64 03/15/25 12:59 BMI result Body Mass Index 35.2 Const General: cooperative, healthy appearing, comfortable and no acute distress Orientation/consciousness: patient oriented x3 HEENT Head: Yes normal to inspection Neck Neck: Yes normal visual inspection, Yes trachea midline and Yes supple Chest Chest palpation & inspection: normal inspection of the chest Resp Effort & Inspection: normal respiratory effort Auscultation: clear to auscultation bilaterally, no crackles, no rales, no rhonchi and no wheezes Cardio Jugular venous distension: no JVD Palpation: normal PMI Rate: regular rate Rhythm: regular rhythm Heart sounds: S1 normal heart sound present, S2 normal heart sound present, no click, no gallops, no murmurs and no rubs Peripheral pulses: Peripheral pulses 2+ throughout GI Inspection: Yes normal to inspection Palpation (GI): Soft to palpation Auscultation: normal bowel sounds Skin General skin exam: no rashes or lesions noted Neuro General: patient oriented x3 Extrem General: Yes normal to inspection, No no pedal edema and No calf tenderness Psych Appearance: grossly normal Mental Status: mental status grossly normal Speech and movement: Normal speech and movement present Assessment & Plan Assessment & Plan (1) Nonischemic cardiomyopathy: Code(s): I42.8 - Other cardiomyopathies Category: Medical Plan: 06/03/2024-EKG showed normal sinus rhythm with STT wave abnormality consistent with possible anterolateral ischemia and/or RV strain. 08/20/2024-patient underwent a echo study that showed a moderately increased LV wall thickness with mildly decreased LV systolic function with an ejection fraction between 40-45%, with mild dilation of the ascending aorta at 3.60 cm. 10/28/2024-patient subsequently underwent a myocardial perfusion study that showed mostly fixed perfusion defect with minimal reversibility in the apical part of the anterior wall and adjust and add PACs which could represent nontransmural infarct and also could be artifactual. 11/25/2024-coronary CTA showed no significant coronary artery disease. Given a negative ischemic workup, we will focus on neurohormonal guided medical therapy and titrate as needed. Patient was previously started on valsartan 80 mg daily. We will add low-dose carvedilol and spironolactone. We will plan to repeat echo in 3 months. We will check in with the patient in 6 weeks to make sure patient is tolerating her medications. We will check labs between this. Discussed signs and symptoms of heart failure with the patient.Advised on low- salt diet, daily weight monitoring, compression socks as needed for leg swelling. (2) Shortness of breath: Code(s): R06.02 - Shortness of breath Category: Medical Plan: Patient notes that she has some nonexertional shortness of breath mostly noted at nighttime when sleeping. Stop Bang score of 2-3, we will order a sleep study. (3) Hyperlipidemia: Code(s): E78.5 - Hyperlipidemia, unspecified Category: Medical Plan: Most recent LDL at 153. We started patient on atorvastatin 20 mg daily. We will plan to repeat this in 3 months. Advised patient on heart healthy diet, regular exercise, losing weight, med compliance, and management of vascular risk factors. Follow up in 6 weeks. In the interim, patient will call the office with any concerns or change in symptoms. This note was generated using voice recognition software. While every effort has been made to ensure accuracy and proper living skills advisor, there may be occasional errors that could affect the content or meaning of the described symptoms. Orders: Orders Liver Panel Today I42.9 - Cardiomyopathy, unspecified Lipid Panel 3 Months E78.5 - Hyperlipidemia, unspecified Basic Metabolic Panel Today I42.9 - Cardiomyopathy, unspecified RT home sleep study Today G47.33 - Obstructive sleep apnea (adult) (pediatric) Medications: New spironolactone 25 mg PO DAILY 90 tabs 1RF carvedilol must administer with a meal/food 3.125 mg PO BID 90 tabs 1RF Coding Level of Care Code Est Pt Level 4 (36705) Complex EM visit Add On G2211 Diagnoses Nonischemic cardiomyopathy I42.8 Shortness of breath R06.02 Hyperlipidemia E78.5 Time Spent (min) 35 Comment Time spent in reviewing the chart, test results, assessment, counseling and documentation.
--- OUTSIDE RECORDS SUMMARY | 2025-03-15 15:37 | XMS_ITS | Patient Health Record ---
Author Organization [facility] Address [address] [place] [address] Care Team Providers Care Hand Outside Cutter Name Role Phone Sarath ADAMSON, Asma Primary Care Provider Tha Jenkins Jr Unavailable [phone] Allergies Allergen (clinical drug ingredient) Drug/Non Drug [...] Status Risk Notes Problem Colon cancer screening (327874230) Colon cancer screening (Z12.11) Active confirmed Problem History of polyp of colon (situation) (237997499) Personal history of colonic polyps (Z86.010) Active confirmed Problem Slow transit constipation (97431480) Slow transit constipation (K59.01) Active confirmed Problem Irritable bowel syndrome characterized by constipation (969021614) Irritable bowel syndrome with constipation (K58.1) Active confirmed Plan Of Treatment Future Test Test Name Order Date COLONOSCOPY 11/19/2017 COLONOSCOPY 01/16/2023 Insurance Providers Payer Name Payer Address Payer Phone Subscriber Number Group Number Insured Name Patient Relationship to Insured Coverage Start Date Coverage End Date [facility] [address] [address] [place], [place] [id number] VICENTE TERRY Self - patient is the insured Medical (General) History Medical History History ICD Code fibromyalgia endometriosis anxiety/depression mood swings insomnia Irritable bowel syndrome with constipati on Colonoscopy 02/26, tubular adenoma, five -year followup 03/03 Undifferentiated connective tissue disor minda Surgical History Surgery Date(Month/Year) section 1994,1997 endometrial ablation
== END 2025-03-15 13:31 | disposition home or self-care (01) ==
PROVIDERS: PCP Internal Medicine
DX: I42.8 Other cardiomyopathies (principal); R06.02 Shortness of breath; E78.5 Hyperlipidemia, unspecified
CPT/HCPCS: 99214

== ENCOUNTER → 2025-03-15 12:58 | Outpatient (BNVA) | payer OTHER, SELFPAY | PROVIDERS: PCP Internal Medicine | DX: R06.02 Shortness of breath (principal); I42.8 Other cardiomyopathies; E78.5 Hyperlipidemia, unspecified | CPT/HCPCS: 99212 ==

== ENCOUNTER 2025-04-19 15:08 | Outpatient (REF) | payer OTHER, SELFPAY | END 2025-04-19 15:09 | disposition home or self-care (01) | LOC: HO.HKASLDS 15:08 | PROVIDERS: PCP Internal Medicine; Visit Provider Student in an Organized Health Care Education/Training Program | DX: B35.1 Tinea unguium (principal); L60.3 Nail dystrophy; M79.675 Pain in left toe(s); L60.0 Ingrowing nail | CPT/HCPCS: 11720; 99212 ==

== ENCOUNTER 2025-04-19 15:08 | Outpatient (AMB) | payer OTHER, SELFPAY ==
--- NOTE | 2025-04-19 15:17 | MHC.OFFVIS ---
Vital Signs 04/19/25 15:34 Height 5 ft 3 in Weight 198 lb BMI 35.1 Intake Visit Reasons: Bilateral Great Toe onychomycosis Intake Note: Violet is a 60 year old female who presents today for a follow up on her bilateral great toe onychomycosis. At her last visit she was advised to continue with applying the ciclopirox medication and has found slight relief for her symptoms. Her right great toe has improved however her left toe has remained the same. Patient has no further questions or concerns at this time Allergies aspirin (Aspirin) Allergy (Mild, Verified 04/19/25 15:34) GI UPSET, upset stomach, stomach upset HPI Comments Details: The patient is a 60 year old female presenting for follow-up of tinea unguium to bilateral hallucal nails. She has been consistently using topical Ciclopirox and reports that her right hallucal nail seems to be improving, but the condition on her left hallucal nail is not improving as quickly. For a while, she has experienced pain in her left great toe, which is elicited when pressing on the lateral side of the nail. She denies any redness, drainage, or purulence. The patient is interested in exploring oral medication as a treatment option. She was previously given an order for lab work to check her liver function but had not yet completed it. She denies any other pedal concerns. She denies any new pedal injuries. [facility] Medical History Lupus (systemic lupus erythematosus) Anxiety Nail dystrophy Encounter for long-term (current) use of NSAIDs Bilateral swelling of feet and ankles Bilateral ankle joint pain Pain in right arm Long-term use of immunosuppressant medication Hx of bronchitis Migraine Depression IBS (irritable bowel syndrome) Fibromyalgia Undifferentiated connective tissue disease Surgical History Hx of colonoscopy History of endometrial ablation History of History of bilateral ligation of fallopian tubes Family History Mother HTN (hypertension) Brother Diabetes Father Heart attack Other Mental health disorder Social History Household Members: None Housing: House Are you a primary youth care professional to a significant other at home: No Do you presently have visiting nurse or other home services: No Alcohol intake: current Alcohol intake frequency: does not drink Alcohol type: wine Patient Tobacco Use Status: Never used Tobacco e-Cigarette/Vaping Use: Never Used Second Hand Smoke Exposure: No service: No Current occupational status: employed Current occupation: paraprofessional Cognitive needs: No Hearing needs: No Vision needs: Yes Female Reproductive History Menstrual Age of Menarche: 13 Review of Systems Const Details: - Dermatological: Reports mild discoloration and thickening of nails on bilateral halluces. - Musculoskeletal: Reports pain on the lateral aspect of the left hallucal nail border. All systems reviewed & are unremarkable except as noted in HPI and below Physical Exam Vital Signs: BMI result Body Mass Index 35.1 Extrem Other: Bilateral lower extremity focused physical exam: Dermatological: Mild discoloration and thickening noted to bilateral hallucal nails with continue improvement noted to the discoloration (right more than left). Remaining nails noted to be slightly thickened with no discoloration. No subungual debris noted. No incurvation of nails noted. Skin supple and turgor within normal limits. No clinical signs of infection. No erythema or edema noted. No hyperkeratotic lesions noted. Vascular: DP/PT pedal pulses palpable. Capillary refill time less than 3 seconds. Temperature gradient warm to warm. No varicosities noted. Pedal hair absent. Neuro: Protective sensation is grossly intact. Musculoskeletal: Pain on palpation noted to the lateral border of the left hallucal nail. No pain to remaining toes. Range of motion of the forefoot, hindfoot, and ankle within normal limits. No crepitus noted. No gross abnormalities noted. Office Procedures AMB Debridement/Avulsion Podia Details: Debrided bilateral hallucal nails using a sterile Dremel without incidents. Performed a slant back of the lateral nail border of the left hallucal nail using a sterile nail Nipper without incidents. [id number] of Nail <6 Procedure code (CPT) selection complete Results Reviewed Results Reviewed: Bilateral hallucal nails pathology: Positive for rare fungal hyphae and buds with appropriate control. Laboratory Tests 12/24/24 12:05 AST 34 H ALT 28 Assessment & Plan Assessment & Plan (1) Onychomycosis: Code(s): B35.1 - Tinea unguium Category: Medical (2) Nail dystrophy: Code(s): L60.3 - Nail dystrophy Category: Medical (3) Pain of left great toe: Code(s): M79.675 - Pain in left toe(s) Category: Medical (4) Ingrowing nail, left great toe: Code(s): L60.0 - Ingrowing nail Category: Medical (5) Nail disorder: Code(s): L60.9 - Nail disorder, unspecified Category: Medical Plan Patient was informed and verbally consented to the use of an ambient scribe for clinic note documentation during this visit. I discussed the patient's progress with ciclopirox noting the slow improvement in her left foot. I educated her that topical treatments can take up to a year for full efficacy. We reviewed the alternative of oral medication, and I explained the necessity of checking her liver function via lab tests before proceeding. The patient expressed interest, so I placed an order for the labs to be drawn. To manage her current discomfort in the left great toe, I performed a slant back of the offending nail border and filed the area. I provided instructions for home care, including soaking the foot in warm water with Epsom salt to alleviate irritation. I recommended she follow up in about two months. - Debrided bilateral hallucal nails in a performed a slant back to the lateral border of the left hallucal nail. - The patient will continue to use topical Ciclopirox as prescribed. - Labs were ordered to assess liver function in consideration of starting oral antifungal medication. - The patient was instructed to soak her left foot in warm water with Epsom salt to reduce pain and irritation. - Advised patient to wear supportive shoe gear and avoid barefoot walking. - Advised patient to keep feet clean and dry. RTC in 2 months. Orders: Orders AMB Debridement/Avulsion Podiatry 04/19/25 B35.1 - Tinea unguium, L60.0 - Ingrowing nail, L60.3 - Nail dystrophy, L60.9 - Nail disorder, unspecified, M79.675 - Pain in left toe(s) Coding Level of Care Code Est Pt Level 3 (82558) Diagnoses Onychomycosis B35.1 Nail dystrophy L60.3 Pain of left great toe M79.675 Ingrowing nail, left great toe L60.0 Nail disorder L60.9 CPT Codes Skin Debridement - CPT: 98896-Xidfcnvsmcw of Nail <6 ([id number]) Time Spent (min) 25 Comment 5 mins for procedure
[2025-04-19 15:34] VITALS: BMI 35.1
--- OUTSIDE RECORDS SUMMARY | 2025-04-19 21:31 | XMS_ITS | Patient Health Record ---
Author Organization [facility] Address [address] [place] [address] Care Team Providers Care Artist And Repertoire Manager Name Role Phone Sarath ADAMSON, Asma Primary Care Provider Tha Jenkins Jr Unavailable Allergies Allergen (clinical drug ingredient) Drug/Non Drug Allergy documented on EMR Reaction Allergy Type Onset Date Status Aspir-81 stomach upset Drug Allergy Act noelle Reason For Referral No Information Medications Medication SIG (Take, Route, Frequency, Duration) Notes Start Date End Date Status Linzess 72 MCG Capsule TAKE 1 CAPSULE DA IONA 30 MINUTES BEFORE THE FIRST MAIN MEAL OF THE DAY ON EMPTY STOMACH FOR 30 DAYS; Duration: 30 Active Fluoxetine Active QUEtiapine Fumarate Active LORazepam Active Gabapentin Active Hydroxychloroquine Sulfate 2 00 MG Tablet 2 TABLETS ORALLY ONCE A DAY Active MiraLax (colon prep) 17 GM/SCOOP Powder mixed with Gatorade or Crystal Light Orally begin at 5:00 p.m. the day before the procedure; Duration: 1 day 01/16/2023 Active hydrOXYzine HCl Acti ve Mirtazapine Active SEROquel Active lamoTRIgine Active Immunizations Vaccine Route Administration Date Status Comme nts Influenza Unknown 02/09/2021 Administered Social History Tobacco Use: Social History Observation Description Date Details (start date - stop date) Never Smoker NA - NA Social History Drugs/Alcohol: Social Info Question Answer Notes Alcohol Screen Did you have a drink containing alcohol in the past year? 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 [place] Problems Problem Type SNOMED Code ICD Code Onset Dates Problem Status W/U Status Risk Notes Problem Colon cancer screening (927961242) Colon cancer screening (Z12.11) Active confirmed Problem History of polyp of colon (situation) (984405912) Personal history of colonic polyps (Z86.010) Active confirmed Problem Slow transit constipation (52113709) Slow transit constipation (K59.01) Active confirmed Problem Irritable bowel syndrome characterized by constipation (769258159) Irritable bowel syndrome with constipation (K58.1) Active confirmed Plan Of Treatment Future Test Test Name Order Date COLONOSCOPY 11/19/2017 COLONOSCOPY 01/16/2023 Insurance Providers Payer Name Payer Address Payer Phone Subscriber Number Group Number Insured Name Patient Relationship to Insured Coverage Start Date Coverage End Date [facility] [employer] [facility] [address] [address] [place], [place] [id number] VICENTE TERRY Self - patient is the insured Medical (General) History Medical History History ICD Code fibromyalgia endometriosis anxiety/depression mood swings insomnia Irritable bowel syndrome with constipati on Colonoscopy 02/26, tubular adenoma, five -year followup 03/03 Undifferentiated connective tissue disor minda Surgical History Surgery Date(Month/Year) section 1994,1997 endometrial ablation
== END 2025-04-19 15:35 | disposition home or self-care (01) ==
LOC: HO.HPODS 15:09
PROVIDERS: PCP Internal Medicine; Visit Provider Student in an Organized Health Care Education/Training Program
DX: B35.1 Tinea unguium (principal); L60.3 Nail dystrophy; M79.675 Pain in left toe(s); L60.0 Ingrowing nail; L60.9 Nail disorder, unspecified
CPT/HCPCS: 11720; 99213

== ENCOUNTER → 2025-04-21 14:20 | Outpatient (REF) | payer OTHER, SELFPAY ==
--- OUTSIDE RECORDS SUMMARY | 2025-04-21 21:59 | XMS_ITS | Patient Health Record ---
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 [place] Problems Problem Type SNOMED Code ICD Code Onset Dates Problem Status W/U Status Risk Notes Problem Colon cancer screening (657577440) Colon cancer screening (Z12.11) Active confirmed Problem History of polyp of colon (situation) (582586080) Personal history of colonic polyps (Z86.010) Active confirmed Problem Slow transit constipation (36393382) Slow transit constipation (K59.01) Active confirmed Problem Irritable bowel syndrome characterized by constipation (738451910) Irritable bowel syndrome with constipation (K58.1) Active confirmed Plan Of Treatment Future Test Test Name Order Date COLONOSCOPY 11/19/2017 COLONOSCOPY 01/16/2023 Insurance Providers Payer Name Payer Address Payer Phone Subscriber Number Group Number Insured Name Patient Relationship to Insured Coverage Start Date Coverage End Date [facility] [employer] [facility] [address] [address] [place], [place] [id number] VICENTE TERRY Self - patient is the insured Medical (General) History Medical History History ICD Code fibromyalgia endometriosis anxiety/depression mood swings insomnia Irritable bowel syndrome with constipati on Colonoscopy 02/26, tubular adenoma, five -year followup 03/03 Undifferentiated connective tissue disor minda Surgical History Surgery Date(Month/Year) section 1994,1997 endometrial ablation
== END ==
LOC: HO.SL 14:20
PROVIDERS: PCP Internal Medicine
DX: G47.33 Obstructive sleep apnea (adult) (pediatric) (principal)
CPT/HCPCS: 95806

== ENCOUNTER → 2025-04-21 14:34 | Outpatient (BNV) | payer OTHER, SELFPAY | PROVIDERS: PCP Internal Medicine; Visit Provider Psychiatry & Neurology Neurology | DX: G47.33 Obstructive sleep apnea (adult) (pediatric) (principal) | CPT/HCPCS: 95806 ==